=== PATIENT | female | born 1990 | race Hispanic/Latino ===

== ENCOUNTER 2017-02-24 02:23 | Emergency (ER) | payer MEDICAID ==
[2017-02-24 10:21] VITALS: BMI 25.8
== END 2017-02-24 02:38 | disposition left against medical advice (07) ==
LOC: ED 02:23
DX: Z02.89 Encounter for other administrative examinations (principal); O26.899 Other specified pregnancy related conditions, unspecified trimester

== ENCOUNTER 2017-02-24 10:09 | Inpatient (IN) | payer MEDICAID, BC ==
[2017-02-24 10:21] VITALS: BMI 25.8
--- NOTE | 2017-02-24 10:38 | ED PDOC ---
Arrival/HPI - General Chief Complaint: Psychiatric Evaluation Time Seen by Provider: 02/24/17 10:30 Historian: Patient - History of Present Illness Narrative History of Present Illness (Text): 02/24/17 10:35 26 y/o female, no significant pmh, psychiatric history including schizophrenia? , nkda, biba and police for agitation and suicidal ideation x 1 day. Pt. stated that she feels fine except feeling little suicidal ideation and wants to choke her self. As per police, patient was found agitated and running through the [employer] crowd which appear concerning. Pt. is in the ER department, pleasant and smiling, stated that she has no medical complaints. Pt. has no homicidal or suicidal ideation, no auditory or visual hallucination, no palpitation, no rash, no other medical or psychological complaints. 02/24/17 11:09 Past Medical History - Provider Review Nursing Documentation Reviewed: Yes - Infectious Disease Hx of Infectious Diseases: None - Psychiatric Hx Schizophrenia: Yes Hx Substance Use: No Family/Social History - Physician Review Nursing Documentation Reviewed: Yes Family/Social History: Unknown Family HX Smoking Status: Never Smoked Hx Alcohol Use: No Hx Substance Use: No Allergies/Home Meds Allergies/Adverse Reactions: Allergies No Known Allergies Allergy (Verified 02/24/17 10:21) Home Medications: Home Meds Medication Instructions Recorded Confirmed Paliperidone [Paliperidone ER] 9 mg pe PO DAILY 02/24/17 02/24/17 Review of Systems - Review of Systems Constitutional: absent: Fatigue, Fevers Eyes: absent: Vision Changes ENT: absent: Hearing Changes Respiratory: absent: SOB, Cough Cardiovascular: absent: Chest Pain Gastrointestinal: absent: Abdominal Pain, Nausea, Vomiting Skin: absent: Rash, Pruritis Neurological: absent: Headache, Dizziness, Focal Weakness Psychiatric: Suicidal Ideation. absent: Anxiety, Depression Physical Exam Vital Signs Reviewed: Yes Vital Signs Temp Pulse Resp BP Pulse Ox 02/24/17 15:46 102 H 18 126/56 L 100 02/24/17 10:19 98.7 F 116 H 20 132/71 99 Temperature: Afebrile Blood Pressure: Normal Pulse: Tachycardic Respiratory Rate: Normal Appearance: Positive for: Well-Appearing, Non-Toxic, Comfortable Pain Distress: None Mental Status: Positive for: Alert and Oriented X 3 - Systems Exam Head: Present: Atraumatic, Normocephalic Pupils: Present: PERRL Extroacular Muscles: Present: EOMI Conjunctiva: Present: Normal Ears: Present: NORMAL TM, Normal Canal. No: Erythema Mouth: Present: Moist Mucous Membranes Neck: Present: Normal Range of Motion, Trachea Midline. No: MIDLINE TENDERNESS , Paraspinal Tenderness, Lymphadenopathy Respiratory/Chest: Present: Clear to Auscultation, Good Air Exchange. No: Respiratory Distress, Accessory Muscle Use Cardiovascular: Present: Regular Rate and Rhythm, Normal S1, S2. No: Murmurs Abdomen: Present: Normal Bowel Sounds. No: Tenderness, Distention, Peritoneal Signs, Rebound, Guarding Back: Present: Normal Inspection. No: CVA Tenderness, Midline Tenderness Upper Extremity: Present: Normal Inspection. No: Cyanosis, Edema Lower Extremity: Present: Normal Inspection. No: Edema Neurological: Present: GCS=15, Speech Normal, Motor Func Grossly Intact, Gait Normal, Memory Normal Skin: Present: Warm, Dry, Normal Color. No: Rashes Psychiatric: Present: Alert, Oriented x 3, Normal Insight, Normal Concentration Medical Decision Making ED Course and Treatment: 02/24/17 10:39 -labs/ua/uds -ekg -chest xray -PES notify -Observe and reassess 02/24/17 11:12 -EKG: Sinus Tachycardia @ 104 BPM, no ST elevation or depression, no T wave inversion. -I spoke to Dr. Garcia which he called me from [phone], stated that this patient has chronic schizophrenia with chronic psychotic features, agreed that this behavior today is unusual plus will need psychiatric evaluation after the medical evaluation. 02/24/17 11:30 -I was call to the bedside as the patient agitated, suicidal expression, fight verbally and physically with the one to one staff Pedro, causing danger to the others and self, wants to leave the ER, very uncooperative, 4 restraints applied with security on the side. I was put on the phone with the father which stated that please don't give any medication to her daughter and try to remove the restraints on her. I explained to the father the entire situation and the suddenly explosive episode of behavior change and agitated to leave the hospital with suicidal comment. I asked him to come to the ER but he say he can not come in. I consulted with Dr. Garcia that either medication or physical restraints need to be applied. I have asked the CHARGE AUTHORIZER Evelyn Anne to removed some restraints and see if there is any improvement on the behavior. If the patient is still agitated, then the restraint will be kept on until psychiatric evaluation since the dad and the patient refused medication. 02/24/17 12:33 -Patient suddenly became agitated after 2 pts. soft restraint removed from the leg as the parent and family request it all removed. Pt. pushing the one to one Pedro and trying to run out of the ER, stopped by pedro and the patient fall on the top of the patient. I escorted the patient back into the room, 4 pts. soft restraint placed. I re-examined the patient and there is no signs of trauma or skin discoloration, no tenderness or swelling. Pt. stated that she has no pain either. -Family (aunt and cousin who happened to be an RN too) visualized the entire scene and I tell them that I have to restraint the patient as the father is absolutely doesn't want her daughter to be receiving any medications especially ativan. 02/24/17 12:44 -MANNIE Sharma is here, discussed about the case and incidents with the dad/ psychiatrist Dr. Garcia, she will speak to the family and the patient. 02/24/17 14:21 -Father is here at the bed side, spoke to on the phone, Dr. Anderson will come to the ER, consult placed in. -Labs are non-significant -Chest xray show no acute findings. -EKG show no acute findings -Pt. is medically clear and stable for psychiatric evaluation. 02/24/17 15:13 -The father and the patient agreed to signed in, they will follow up on the UA and drug screen. -Dr. Garcia will put in the admission order. 02/24/17 15:42 -UA show no UTI 02/24/17 16:24 -UDS show no acute findings. -Pt. will be medicated by psychiatrist prior to going up stair, restraints will be removed since she will be medicated. - Lab Interpretations Lab Results: 02/24/17 10:33 02/24/17 10:33 Lab Results 02/24/17 10:33: Beta HCG, Quant < 2.39 02/24/17 10:33: WBC 8.6, RBC 4.28, Hgb 12.5, Hct 36.6, MCV 85.5, MCH 29.2, MCHC 34.2, RDW 12.6, Plt Count 230, MPV 11.2 H, Gran % 70.3 H, Lymph % (Auto) 22.1, [place] % (Auto) 7.1 H, Eos % (Auto) 0.2 L, Baso % (Auto) 0.3, Gran # 6.04, Lymph # 1.9, [place] # 0.6, Eos # 0.0, Baso # 0.03 02/24/17 10:33: Alcohol, Quantitative < 10 02/24/17 10:33: Salicylates < 1 L, Acetaminophen < 10.0 L 02/24/17 10:33: Sodium 139, Potassium 3.7, Chloride 105, Carbon Dioxide 23, Anion Gap 15, BUN 6 L, Creatinine 0.7, Est GFR ( Amer) > 60, Est GFR (Non -Af Amer) > 60, Random Glucose 134 H, Calcium 9.8, Total Bilirubin 0.4, AST 24, ALT 35, Alkaline Phosphatase 55, Total Protein 7.2, Albumin 4.2, Globulin 2.9, Albumin/Globulin Ratio 1.4 I have reviewed the lab results: Yes Interpretation: No clinic. lab abnormalty - RAD Interpretation Radiology Orders: 02/24/17 10:34 CHEST PORTABLE [RAD] Stat - EKG Interpretation EKG Interpretation (Text): 02/24/17 10:46 -EKG: Sinus Tachycardia @ 104 BPM, no ST elevation or depression, no T wave inversion. Interpreted by ED Physician: Yes Type: 12 lead EKG - Medication Orders Current Medication Orders: Discontinued Medications Perphenazine (Perphenazine) 4 mg PO STAT STA Stop: 02/24/17 16:16 - PA / TOLL COLLECTOR SUPERVISOR / Resident Statement MD/DO has reviewed & agrees with the documentation as recorded. Disposition/Present on Arrival - Present on Arrival Any Indicators Present on Arrival: No History of DVT/PE: No History of Uncontrolled Diabetes: No Urinary Catheter: No History of Decub. Ulcer: No History Surgical Site Infection Following: None - Disposition Have Diagnosis and Disposition been Completed?: Yes Diagnosis: Schizophrenia, Suicidal ideation Disposition: HOSPITALIZED Disposition Time: 15:15 Patient Plan: Admission Patient Problems: Current Active Problems Problem Status Onset Schizophrenia Acute Suicidal ideation Acute Condition: GUARDED
[2017-02-24 11:31] LABS: BASO # 0.03 K/mm3 (0.0-2.0); BASO % 0.3 % (0.0-3.0); EOS % 0.2 % (1.5-5.0); GRAN # 6.04 (1.4-6.5); GRAN % 70.3 % (50.0-68.0); HEMATOCRIT 36.6 % (36.0-48.0); LYMPH # 1.9 (1.2-3.4); LYMPH % 22.1 % (22.0-35.0); MEAN CELL VOLUME 85.5 fl (80.0-105.0); MEAN CORPUSCULAR HEMOGLOBIN 29.2 pg (25.0-35.0); MEAN CORPUSCULAR HGB CONC 34.2 g/dl (31.0-37.0); MEAN PLATELET VOLUME 11.2 fl (7.0-11.0); MONO # 0.6 (0.1-0.6); MONO % 7.1 % (1.0-6.0); RED CELL DISTRIBUTION WIDTH 12.6 % (11.5-14.5); WHITE BLOOD COUNT 8.6 10^3/ul (4.5-11.0)
[2017-02-24 11:39] LABS: ALB/GLOB RATIO 1.4 (1.1-1.8); ALKALINE PHOSPHATASE 55 U/L (38-126); ALT/SGPT 35 U/L (7-56); AST/SGOT 24 U/L (14-36); BILIRUBIN,TOTAL 0.4 mg/dL (0.2-1.3); BLOOD UREA NITROGEN 6 mg/dL (7-21); CALCIUM 9.8 mg/dL (8.4-10.5); CARBON DIOXIDE 23 mmol/L (21-33); CHLORIDE 105 mmol/L (98-107); GFR AFRICAN-AMERICAN > 60; GLUCOSE,RANDOM 134 mg/dL (70-110); TOTAL PROTEIN 7.2 g/dL (5.8-8.3)
[2017-02-24 11:51] LABS: POTASSIUM 3.7 mmol/L (3.6-5.0); SODIUM 139 mmol/L (132-148)
--- NOTE | 2017-02-24 14:43 | RAD ---
HISTORY: medical clearance COMPARISON: No prior. FINDINGS: LUNGS: No active pulmonary disease. PLEURA: No significant pleural effusion identified, no pneumothorax apparent. CARDIOVASCULAR: Normal. OSSEOUS STRUCTURES: No significant abnormalities. VISUALIZED UPPER ABDOMEN: Normal. OTHER FINDINGS: None. IMPRESSION: No active disease.
[2017-02-24 15:34] LABS: PH,URINE 5.5 (4.7-8.0); URINE BILIRUBIN NEGATIVE (NEGATIVE); URINE BLOOD NEGATIVE (NEGATIVE); URINE GLUCOSE (UA) NEGATIVE (NEGATIVE); URINE KETONE NEGATIVE (NEGATIVE); URINE LEUKOCYTE ESTERASE NEGATIVE Leu/uL (NEGATIVE); URINE PROTEIN NEGATIVE mg/dL (<30 mg/dL); URINE UROBILINOGEN 0.2 E.U./dL (<1 E.U./dL)
[2017-02-24 15:35] LABS: URINE APPEARANCE CLEAR (CLEAR); URINE COLOR YELLOW (YELLOW)
--- NOTE | 2017-02-24 18:11 | PCM.BM ---
<NunubrooklynPedro - Last Filed: 02/24/17 18:08> Treatment Plan Problems - Problems identified on initial assessmt agitated behavior Date Initiated: 02/24/17 Time Initiated: 18:08 Assessment reference: HP, NA Status: Active alteration in emotional status Date Initiated: 02/24/17 Time Initiated: 18:09 Assessment reference: HP, NA Status: Active delusions Date Initiated: 02/24/17 Time Initiated: 18:10 Assessment reference: HP, NA Status: Active thought process alteration Date Initiated: 02/24/17 Time Initiated: 18:10 Assessment reference: HP, NA Treatment assets and liabiliti Patient Assests: educated, self-reliant, ADL independent, physically healthy, strong mini Patient Liabilities: dietary restrictions - Milieu Protocol Maintain good personal hygiene: daily Encourage regular showers, daily Remind patient to perform daily oral care, daily Assist patient to perform ADL's Maintain personal safety: daily Educate patient to report safety concerns to staff, daily Monitor environment for contraband/sharps Medication safety: Monitor for expected outcome, potential side effects: daily, Assess barriers to learning: daily, Assess readiness for medication education: daily Discharge/Continuing Care - Education Needs Education Needs: Patient Medication, Patient Diagnosis/Disease Process, Patient Coping Skills, Patient Anger Management skills, Patient Community resources, Patient Activities of Daily Living, Patient Personal Hygiene/Grooming - Discharge Discharge Criteria: Tolerates medication w/o severe side effects, Free of Suicidal thoughts, Free of paranoid thoughts, Free of agitation, Normal sleep pattern, Ability to care for self Discharge to:: Home <Mary Frederick - Last Filed: 03/01/17 08:28> Family Contact Family involvement: Family/SO is involved Family contact: Patient agrees to contact Family contact name: Ana M Allen(mother) Lamont Allen(father) Family contacted how many times per week?: 2 <Ramona Mckay - Last Filed: 03/06/17 14:56>
--- NOTE | 2017-02-24 23:06 | CARD ---
APPROVED REPORT EKG Measurement Heart [id number] <Conclusion> Sinus tachycardia Nonspecific T wave abnormality Abnormal ECG
--- NOTE | 2017-02-25 01:21 | CON ---
DATE: HISTORY OF PRESENT ILLNESS: The patient is a 26-year-old female with history of schizophrenia, was brought by police for agitation and suicidal ideation. Psych consult was called because the patient was agitated, wanted to harm herself and wanted to choke herself. As per police report, the patient was found agitated and running through the crowd, which appeared to be concerning. In the Emergency Room, the patient was agitated, needed to be in 4 point restraints. The patient was seen and examined. The patient has developmental disability, neurocognitive disorder, and the patient's father who claimed to be POA and the patient confirmed that was next to the patient. The patient needed to be interviewed on one to one because father was constantly interfering with the patient during the interview. Based on the patient's presentation, the patient presented to be a paranoid suspicious. The patient said that she lives with her uncle and her grandmother and her uncle treats her poorly. As per collaterals said this is not correct information. The patient is paranoid. The patient also feels that her uncle is abusing her and when the patient was asked if she has any thoughts to harm her uncle, the patient said a little bit. The patient also said that she wants to harm herself, "a little bit". The patient said that she wants to choke herself and 2 days ago, she tried to cut herself with the knife. The patient said that she is not feeling safe going back home because of the uncle. The patient has Psychiatrist in the community Dr. Roa in [place], phone number is [phone]. The patient reported to be compliant with the medication. The patient was on Invega 15 mg. The patient also was doing well on perphenazine which was discontinued about 9 months ago of this year. As per collateral, the patient was compliant with the medications. The patient's father was feeling resistant to sign consent for treatment because as per father, admission will worsen the situation and the patient's father requested this science writer to speak to the primary psychiatrist who was called. As per Dr. Roa, the patient needed to stay in the hospital because the patient seems to be decompensating. The patient's primary care psychiatrist was in agreement with the plan and the patient's psychiatrist called to the family and family were reluctantly signed consent for treatment. Dr. Roa confirmed the medication Invega 15 mg daily as well as history of being on perphenazine. Most recent hospitalization was in 03/2015. PHYSICAL EXAMINATION VITAL SIGNS: This science writer reviewed vital signs. Vital signs seems to be stable, temperature 98.7, pulse is 116, blood pressure 132/71, respirations 20, oxygenation saturation 99. MEDICATIONS: Reviewed, none. LABORATORY DATA: Reviewed. Hematology is reviewed, granulocytes 6.04. Chemistries reviewed. Toxicology reviewed. MENTAL STATUS EXAMINATION: The patient appears to be paranoid. Poor personal hygiene, has long dirty toenails. The patient obviously has some developmental disability, and learning disability as well as neurocognitive deficits, but was able to provide history. Intense eye contact. Speech was overproductive. Mood described as "I want to kill myself, I want to choke myself." Affect was flat. Thought process, disorganized, circumstantial and tangential. Thought content, the patient reported to have thoughts of harming herself. The patient obviously paranoid. Feel that her uncle is threatening her. Appears to be internally preoccupied. Insight and judgment are lacking. Impulses are unpredictable. IMPRESSION: As per history, the patient has schizophrenia, multiple admission in the past. Acute exacerbation. PLAN: After talking to primary psychiatrist, father agreed to sign consent for treatment. The patient was willing to get treat that. Invega is nonformulary in the hospital regimen. This science writer called [facility] that they will get back to me. The patient was on 15 mg of Invega. Family will be advised to bring Invega from home if it is nonformulary in the hospital and if [facility] cannot delivered that medication today. The patient will be on one-to-one because of unpredicted and aggressive behavior. Perphenazine 4 mg 3 times a day will be resumed. Thorazine will be as needed. No Ativan because of this inhibition, Benadryl 50 mg at the night time as needed for insomnia. Management of this case took more than 1 hour. This science writer was involved in high level of care of this patient. Should you have any questions give me a call back. Thank you very much for letting me participate in care of your patient. The patient will go upstairs to the psychiatric inpatient unit. Monica Ahn MD
[2017-02-25 06:42] LABS: CHOLESTEROL 171 mg/dL (130-200); GLUCOSE,FASTING 92 mg/dL (65-110)
[2017-02-25 07:18] LABS: FREE T4 1.34 ng/dL (0.78-2.19)
[2017-02-25 07:32] LABS: THYROID STIMULATING HORMONE 2.25 mIU/mL (0.46-4.68)
--- NOTE | 2017-02-25 09:12 | PCM.PSYCH ---
Initial Psychiatric Evaluation - Initial Psychiatric Evaluation Type of Admission: Voluntary Legal Status: Capacity History of Present Illness and Precipitating Events: Patient is a single 26 yo white female with psychiatric history of schizophrenia , prior psychiatric admissions-most recently 03/2015, in outpatient treatment with Dr. Roa, reportedly adherent with Invega 15 mg HS who was BIB police because she was found agitated and disorganized in the community. Patient also verbalized that she was suicidal and had thoughts of choking herself. Patient's presentation was complicated by the involvement of her father and patient's escalating agitation in the ER. ER notes and Dr. Ahn's consultation indicated that patient was initially pleasant, smiling and cooperative in the ER. However within an hour patient became agitated and started verbally and physically arguing with her 1:1. Patient demanded to leave the ER and required 4 point restraints for the safety of herself and other patients. Father was contacted by phone and he was adamant that patient doesn't receive restraints or medication especially Ativan. Staff accommodated father' s request and removed leg restraints.Subsequently patient ran and tried to elope from the ER and fell. Collateral was obtained from patient's psychiatrist, Dr. Roa. He confirmed that patient's behavior was not typical for her and recommended admission for stabilization.Dr. Ahn was also consulted and spoke with patient and family. Both father and patient eventually agreed to sign in voluntarily for psychiatric stabilization. Of note: Patient received prolixin 4 mg x1 prior to her arrival on the unit. Thus far patient has been in good control on the unit. I met with patient at bedside and she appears fairly groomed, oriented to month, year, location and circumstances. She has a childlike quality about her however she denies any diagnosis of mental retardation. She indicated that she attended regular classes throughout high school and college and that her grades were very good. Patient has been in treatment with her psychiatrist, Dr. Roa for last eight years. Patient is forthcoming about her bizarre and aggressive behavior yesterday. She reports that she has been taking invega as prescribed but "messed up somehow". She has noticed a gradual increase in paranoia and "disorientation" over time even with medication compliance. Specifically patient reports paranoid thoughts about her uncle harassing and stalking her with plan to rape her. Patient suddenly ran into a random preschool yesterday with the intent of saving the children from this uncle. Patient acknowledges that her uncle has no connection to the school whatsoever. Patient admits that she had suicidal thoughts to choke herself. She denies having any hallucinations during the course of events yesterday. Presently patient feels "much much better".. She denies having any thoughts of harming herself and becomes emotional when discussing having these thoughts yesterday. I ask her about depression and she responds "I don't know". She denies having any thoughts to harm her uncle at this time though she still has some suspicions about him. Patient is calm and cooperative. Her responses are coherent and consistent throughout the course of our interview. Her focus is good. Patient denies hallucinations and does not appear to be responding to internal stimuli. She is tolerating her medications and presently agrees with current treatment plan when reviewed with her at bedside this morning. PSYCHIATRIC HISTORY Patient reports at least 2 prior admissions. Most recently 03/2015 and also in her last year of high school. She has been in outpatient treatment with Dr. Roa for 8 years. She is prescribed Invega 15 mg HS. Prolixin has also been beneficial for her in the past. Patient denies any history of SA but reports suicidal ideations. Dr. Ahn 's ER consultation indicates that patient reported trying to cut herself with a knife 2 days prior to her ER presentation SOCIAL HISTORY Patient was born and raised in [place]. She is single. She has a boyfriend named Henry for 5 years. She has no children. She reside with her uncle and grandmother. Patient graduated from high school but completed her final year with home schooling due to decompensation. She denies any history of special education classes. Patient graduated [employer] with a major in psychology & human services. She denies any drug or alcohol or tobacco use. Current Medications: Active Medications Generic Name Dose Route Start Last Admin Trade Name Freq PRN Reason Stop Dose Admin Chlorpromazine 50 mg 02/24/17 17:50 02/25/17 00:10 Thorazine PO 50 mg TID PRN Administration Agitation Protocol Chlorpromazine 50 mg 02/24/17 17:52 Thorazine IM TID PRN Agitation Protocol Diphenhydramine HCl 50 mg 02/24/17 17:50 02/25/17 00:11 Benadryl PO 50 mg HS PRN Administration Insomnia Perphenazine 2 mg 02/25/17 08:00 Perphenazine PO TID CM Risperidone 2 mg 02/24/17 18:00 Risperdal Tab PO TID CM Protocol Past Psychiatric History - Past Psychiatric History Pertinent Medical Hx (Current Medical&Sleep Prob, Allergies): Allergies Allergy/AdvReac Type Severity Reaction Status Date / Time No Known Allergies Allergy Verified 02/24/17 18:49 Paliperidone [Paliperidone ER] 9 mg pe PO DAILY 02/24/17 Mental Status Examination - Personal Presentation Personal Presentation: Looks stated age - Affect Affect: Constricted - Motor Activity Motor Activity: Calm - Reliability in Providing Information Reliability in Providing Information: Fair - Speech Speech: Organized - Mood Mood: Anxious - Formal Thought Process Formal Thought Process: Paranoia, Loosening of associations - Obsessions/Compulsions Obsessions: No Compulsions: No - Cognitive Functions Orientation: Person, Place, Situation Sensorium: Alert Attention/Concentration: Attentive Estimate of Intelligence: Average Judgement: Imparied, as evidence by: Poor judgement - Risk Risk: Suicidal, Homicidal, Diminished functioning DSM 5 DX - DSM 5 DSM 5 Diagnosis: Paranoid Schizophrenia R/O Schizoaffective Disorder Developmental Disorder NOS/Neurocognitive Disorder NOS - Recommended/Plan of Treatment Treatment Recommendations and Plan of Treatment: * group, milieu and supportive tx * Risperdal 2 mg po TID until home medication Invega 15 mg HS is provided by family * Cogentin 0.5 mg po BID for EPS prophylaxis * Prolixin 2 mg po TID for hallucinations and disorganizations * Thorazine 50 mg po/IM TID prn: agitation * Benadryl 50 mg HS prn * Awaiting medical consultation * Vitals reviewed and noted below: Selected Entries 02/24/17 02/24/17 02/24/17 10:19 15:46 16:55 Temperature 98.7 F Pulse Rate 116 H 102 H 100 H Respiratory 20 18 18 Rate Blood Pressure 132/71 126/56 L 124/79 O2 Sat by Pulse 99 100 100 Oximetry 02/24/17 02/25/17 18:01 06:33 Temperature 98 F Pulse Rate 79 Respiratory 20 19 Rate Blood Pressure 114/70 O2 Sat by Pulse Oximetry ER LABS AND STUDIES 02/24/17 10:33: Beta HCG, Quant < 2.39 02/24/17 10:33: WBC 8.6, RBC 4.28, Hgb 12.5, Hct 36.6, MCV 85.5, MCH 29.2, MCHC 34.2, RDW 12.6, Plt Count 230, MPV 11.2 H, Gran % 70.3 H, Lymph % (Auto) 22.1, [place] % (Auto) 7.1 H, Eos % (Auto) 0.2 L, Baso % (Auto) 0.3, Gran # 6.04, Lymph # 1.9, [place] # 0.6, Eos # 0.0, Baso # 0.03 02/24/17 10:33: Alcohol, Quantitative < 10 02/24/17 10:33: Salicylates < 1 L, Acetaminophen < 10.0 L 02/24/17 10:33: Sodium 139, Potassium 3.7, Chloride 105, Carbon Dioxide 23, Anion Gap 15, BUN 6 L, Creatinine 0.7, Est GFR ( Amer) > 60, Est GFR (Non -Af Amer) > 60, Random Glucose 134 H, Calcium 9.8, Total Bilirubin 0.4, AST 24, ALT 35, Alkaline Phosphatase 55, Total Protein 7.2, Albumin 4.2, Globulin 2.9, Albumin/Globulin Ratio 1.4 02/24/17 10:46 -EKG: Sinus Tachycardia @ 104 BPM, no ST elevation or depression, no T wave inversion. FLOOR LABS 02/25/17 02/25/17 06:00 06:00 Fasting Glucose 92 Triglycerides 45 Cholesterol 171 LDL Cholesterol Direct 65 HDL Cholesterol 79 H Free T4 1.34 TSH 3rd Generation 2.25
--- NOTE | 2017-02-25 12:54 | CP.PCM.PN ---
Subjective - Date & Time of Evaluation Date of Evaluation: 02/25/17 Time of Evaluation: 09:00 - Subjective Subjective: Patient was seen and examined in psychiatric unit today. Patient states she had no complaints. Objective - Vital Signs/Intake and Output Vital Signs (last 24 hours): Temp Pulse Resp BP Pulse Ox 98 F 79 19 114/70 100 02/25/17 06:33 02/25/17 06:33 02/25/17 06:33 02/25/17 06:33 02/24/17 16:55 - Medications Medications: Current Medications Benztropine Mesylate (Cogentin) 0.5 mg PO BID [facility] Last Admin: 02/25/17 08:54 Dose: 0.5 mg Chlorpromazine (Thorazine) 50 mg PO TID PRN; Protocol PRN Reason: Agitation Last Admin: 02/25/17 12:37 Dose: 50 mg Chlorpromazine (Thorazine) 50 mg IM TID PRN; Protocol PRN Reason: Agitation Diphenhydramine HCl (Benadryl) 50 mg PO HS PRN PRN Reason: Insomnia Last Admin: 02/25/17 00:11 Dose: 50 mg Perphenazine (Perphenazine) 2 mg PO TID CM Last Admin: 02/25/17 08:54 Dose: 2 mg Risperidone (Risperdal Tab) 2 mg PO TID CM PRN Reason: Protocol Last Admin: 02/25/17 12:37 Dose: 2 mg
--- NOTE | 2017-02-25 13:46 | CP.PCM.CON ---
<Mayank Burger - Last Filed: 02/25/17 16:35> History of Present Illness - History of Present Illness History of Present Illness: Patient is a 26 year old female with a past medical history of schizophrenia, neurocognitive disorder, and developmental disability who presented to [facility] on 02/24/17 by police due to suicidal ideation and agitation while in the community. Due to patient's current status, one on one was placed. With time patient became agitated and began physically and verbally abusing her one to one. Due to escalation of situation, 4 restraints were placed on patient. Patient's father, the JOSÉ MIGUEL was contacted in regards to this situation. He requested that restraints nor ativan be administered to her daughter. Once restraints were removed patient ran for the exit. Patient's psychiatrist Dr. Roa was then call for further input. Dr. Roa agreed with plan to admit patient to the psyhciatric unit as the patient was at the time in a state of decompensation. Patient was seen and examined at bedside today with no acute complaints. Patient states that she is originally from [place] and currently is residing in [place] with her uncle and aunt. Patient states that she is currently trying to save up money so she can move out and live on her own. 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 PMD: Dr. Gomez Psychiatrist: Dr. Roa Allergies: NKDA Medications: Invega 15 mgq D Social history; unemployed currently, degree in psychology, denies drinking, denies smoking, denies ellicit drug use. Family history: Uncle with similar condition as patient Surgical history: denies Review of Systems - Constitutional Constitutional: absent: Chills, Fever, Headache - EENT Eyes: absent: Blurred Vision, Change in Vision, Diplopia, Itchy Eyes, Loss of Vision Ears: absent: Decreased Hearing, Ear Discharge, Dizziness Nose/Mouth/Throat: absent: Nasal Congestion, Nasal Discharge, Post Nasal Drip, Facial Pain, Neck Pain - Breasts Breasts: absent: Mass, Skin Changes, Swelling - Cardiovascular Cardiovascular: absent: Chest Pain, Chest Pain at Rest, Claudication - Respiratory Respiratory: absent: Cough, Dyspnea, Snoring - Gastrointestinal Gastrointestinal: absent: Abdominal Pain, Belching, Bloating, Diarrhea, Dyspepsia, Nausea, Vomiting - Genitourinary Genitourinary: absent: Dysuria, Hematuria, Pyuria - Musculoskeletal Musculoskeletal: absent: Arthralgias, Atrophy - Integumentary Integumentary: absent: Bleeding Lesions - Neurological Neurological: absent: Abnormal Gait, Abnormal Hearing, Dizziness - Psychiatric Psychiatric: Paranoia, Suicidal Ideation - Hematologic/Lymphatic Hematologic: absent: Easy Bleeding, Easy Bruising, Lymphadenopathy Past Patient History - Infectious Disease Hx of Infectious Diseases: None - Past Social History Smoking Status: Never Smoked - CARDIAC Hx Cardiac Disorders: No Hx Hypertension: No - PULMONARY Hx Respiratory Disorders: No Hx Tuberculosis: No - NEUROLOGICAL HX Cerebrovascular Accident: No Hx Seizures: No - HEENT Hx HEENT Problems: No - RENAL Hx Chronic Kidney Disease: No - ENDOCRINE/METABOLIC Hx Endocrine Disorders: No - HEMATOLOGICAL/ONCOLOGICAL Hx Cancer: No Hx Human Immunodeficiency Virus (HIV): No - INTEGUMENTARY Hx Dermatological Problems: No - MUSCULOSKELETAL/RHEUMATOLOGICAL Hx Musculoskeletal Disorders: No - GASTROINTESTINAL Hx Gastrointestinal Disorders: No - GENITOURINARY/GYNECOLOGICAL Hx Sexually Transmitted Disorders: No - PSYCHIATRIC Hx Schizophrenia: Yes Hx Substance Use: No - SURGICAL HISTORY Hx Surgeries: No - ANESTHESIA Hx Anesthesia: No Meds Allergies/Adverse Reactions: Allergies Allergy/AdvReac Type Severity Reaction Status Date / Time No Known Allergies Allergy Verified 02/24/17 18:49 - Medications Medications: Current Medications Benztropine Mesylate (Cogentin) 0.5 mg PO BID [facility] Last Admin: 02/25/17 08:54 Dose: 0.5 mg Chlorpromazine (Thorazine) 50 mg PO TID PRN; Protocol PRN Reason: Agitation Last Admin: 02/25/17 12:37 Dose: 50 mg Chlorpromazine (Thorazine) 50 mg IM TID PRN; Protocol PRN Reason: Agitation Diphenhydramine HCl (Benadryl) 50 mg PO HS PRN PRN Reason: Insomnia Last Admin: 02/25/17 00:11 Dose: 50 mg Perphenazine (Perphenazine) 2 mg PO TID [facility] Last Admin: 02/25/17 08:54 Dose: 2 mg Risperidone (Risperdal Tab) 2 mg PO TID CM PRN Reason: Protocol Last Admin: 02/25/17 12:37 Dose: 2 mg Physical Exam - Constitutional Appears: Non-toxic, No Acute Distress - Head Exam Head Exam: ATRAUMATIC, NORMAL INSPECTION, NORMOCEPHALIC - Eye Exam Eye Exam: EOMI, Normal appearance - ENT Exam ENT Exam: Mucous Membranes Moist, Normal Exam - Neck Exam Neck exam: Positive for: Normal Inspection. Negative for: Tenderness, Thyromegaly - Respiratory Exam Respiratory Exam: Clear to Auscultation Bilateral, NORMAL BREATHING PATTERN. absent: Rhonchi, Wheezes - Cardiovascular Exam Cardiovascular Exam: REGULAR RHYTHM, +S1, +S2. absent: Diastolic murmur, Systolic Murmur - GI/Abdominal Exam GI & Abdominal Exam: Normal Bowel Sounds, Soft. absent: Guarding, Hernia, Rigid - Back Exam Back exam: NORMAL INSPECTION - Neurological Exam Neurological exam: Alert, CN II-XII Intact, Oriented x3 - Psychiatric Exam Psychiatric exam: Normal Affect, Normal Mood - Skin Skin Exam: Normal Color, Warm Results - Vital Signs Recent Vital Signs: Last Vital Signs Temp 98 F 02/25/17 06:33 Pulse 79 02/25/17 06:33 Resp 19 02/25/17 06:33 BP 114/70 02/25/17 06:33 Pulse Ox 100 02/24/17 16:55 - Labs Result Diagrams: 02/24/17 10:33 02/24/17 10:33 Labs: Laboratory Results - last 24 hr 02/24/17 02/24/17 02/25/17 15:30 15:30 06:00 Fasting Glucose 92 Triglycerides 45 Cholesterol 171 LDL Cholesterol Direct 65 HDL Cholesterol 79 H Free T4 TSH 3rd Generation Urine Color Yellow Urine Appearance Clear Urine pH 5.5 Ur Specific [place] <= 1.005 Urine Protein Negative Urine Glucose (UA) Negative Urine Ketones Negative Urine Blood Negative Urine Nitrate Negative Urine Bilirubin Negative Urine Urobilinogen 0.2 Ur Leukocyte Esterase Negative Urine Opiates Screen Negative Urine Methadone Screen Negative Ur Barbiturates Screen Negative Ur Phencyclidine Scrn Negative Ur Amphetamines Screen Negative U Benzodiazepines Scrn Negative U Oth Cocaine Metabols Negative U Cannabinoids Screen Negative 02/25/17 06:00 Fasting Glucose Triglycerides Cholesterol LDL Cholesterol Direct HDL Cholesterol Free T4 1.34 TSH 3rd Generation 2.25 Urine Color Urine Appearance Urine pH Ur Specific [place] Urine Protein Urine Glucose (UA) Urine Ketones Urine Blood Urine Nitrate Urine Bilirubin Urine Urobilinogen Ur Leukocyte Esterase Urine Opiates Screen Urine Methadone Screen Ur Barbiturates Screen Ur Phencyclidine Scrn Ur Amphetamines Screen U Benzodiazepines Scrn U Oth Cocaine Metabols U Cannabinoids Screen Assessment & Plan - Assessment and Plan (Free Text) Assessment: 26 year old female with past medical history of schizophrenia and neurocognitive disorder admitted due to episode of paranoia induced psychosis. Plan: 1) Medical evaluation - From a medical standpoint, as far as physical exam and lab findings, patient is medically cleared. No further intervention needed at this time. <Kavitha uMnguia - Last Filed: 02/25/17 17:12> Meds - Medications Medications: Current Medications Benztropine Mesylate (Cogentin) 0.5 mg PO BID CM Last Admin: 02/25/17 08:54 Dose: 0.5 mg Chlorpromazine (Thorazine) 50 mg PO TID PRN; Protocol PRN Reason: Agitation Last Admin: 02/25/17 12:37 Dose: 50 mg Chlorpromazine (Thorazine) 50 mg IM TID PRN; Protocol PRN Reason: Agitation Diphenhydramine HCl (Benadryl) 50 mg PO HS PRN PRN Reason: Insomnia Last Admin: 02/25/17 00:11 Dose: 50 mg Perphenazine (Perphenazine) 2 mg PO TID CM Last Admin: 02/25/17 14:30 Dose: Not Given Risperidone (Risperdal Tab) 2 mg PO TID CM PRN Reason: Protocol Last Admin: 02/25/17 12:37 Dose: 2 mg Results - Vital Signs Recent Vital Signs: Last Vital Signs Temp 98 F 02/25/17 06:33 Pulse 79 02/25/17 06:33 Resp 19 02/25/17 06:33 BP 114/70 02/25/17 06:33 Pulse Ox 100 02/24/17 16:55 - Labs Result Diagrams: 02/24/17 10:33 02/24/17 10:33 Labs: Laboratory Results - last 24 hr 02/25/17 02/25/17 06:00 06:00 Fasting Glucose 92 Triglycerides 45 Cholesterol 171 LDL Cholesterol Direct 65 HDL Cholesterol 79 H Free T4 1.34 TSH 3rd Generation 2.25 Attending/Attestation - Attestation I have personally seen and examined this patient.: Yes I have fully participated in the care of the patient.: Yes I have reviewed all pertinent clinical information: Yes Notes (Text): 02/25/17 17:10 Attending note; Patient seen and examined with resident in psychiatric floor. Patient is alert, awake and oriented. Denies any complaints. Not in any acute distress. Tolerating diet well. Ambulating fine. Patient is a 26 year old female with a past medical history of schizophrenia, neurocognitive disorder, and developmental disability who presented to [facility] on 02/24/17 by police due to suicidal ideation and agitation. Labs reviewed. Patient is requesting flu vaccine. Okay to give flu vaccine now or upon discharge. No acute medical issues. Please reconsult as needed. Thank you for the courtesy of this consultation.
--- NOTE | 2017-02-26 01:07 | CP.PCM.PN ---
Subjective - Date & Time of Evaluation Date of Evaluation: 02/26/17 Time of Evaluation: 01:04 - Subjective Subjective: Responded to [facility] announcement. Patient was agitated. Few staff members were holding her in the bed . This 26 year old woman was admitted with suicidal ideation. Has history of schizophrenia, developmental disability. Objective - Vital Signs/Intake and Output Vital Signs (last 24 hours): Temp Pulse Resp BP Pulse Ox 98 F 79 19 114/70 100 02/25/17 06:33 02/25/17 06:33 02/25/17 06:33 02/25/17 06:33 02/24/17 16:55 - Medications Medications: Current Medications Benztropine Mesylate (Cogentin) 0.5 mg PO BID CM Last Admin: 02/25/17 17:23 Dose: 0.5 mg Chlorpromazine (Thorazine) 50 mg PO TID PRN; Protocol PRN Reason: Agitation Last Admin: 02/25/17 21:19 Dose: 50 mg Chlorpromazine (Thorazine) 50 mg IM TID PRN; Protocol PRN Reason: Agitation Last Admin: 02/25/17 23:34 Dose: 50 mg Diphenhydramine HCl (Benadryl) 50 mg PO HS PRN PRN Reason: Insomnia Last Admin: 02/25/17 21:19 Dose: 50 mg Perphenazine (Perphenazine) 2 mg PO TID CM Last Admin: 02/25/17 17:23 Dose: 2 mg Risperidone (Risperdal Tab) 2 mg PO TID CM PRN Reason: Protocol Last Admin: 02/25/17 17:23 Dose: 2 mg - Constitutional Appears: Well, In Acute Distress - Head Exam Head Exam: ATRAUMATIC, NORMAL INSPECTION, NORMOCEPHALIC - Eye Exam Eye Exam: Normal appearance - ENT Exam ENT Exam: Normal External Ear Exam - Neck Exam Neck Exam: Normal Inspection - Respiratory Exam Respiratory Exam: NORMAL BREATHING PATTERN - Cardiovascular Exam Cardiovascular Exam: absent: JVD - GI/Abdominal Exam GI & Abdominal Exam: absent: Distended - Rectal Exam Rectal Exam: Deferred - Exam Additional comments: deferred. - Extremities Exam Extremities Exam: Normal Inspection - Back Exam Back Exam: NORMAL INSPECTION - Neurological Exam Neurological Exam: Alert, Awake - Psychiatric Exam Psychiatric exam: Agitated - Skin Skin Exam: Normal Color Assessment and Plan - Assessment and Plan (Free Text) Assessment: Agitation. Suicidal ideation. Schizophrenia. Developmental disability. Plan: Four point restraint was ordered. Continue present management.
--- NOTE | 2017-02-26 09:15 | PCM.PYCHPN ---
Psychiatric Progress Note - Psychiatric Progress Note Patient seen today, length of contact: 25 min Patient Chief Complaint: "I don't know I just get very paranoid and scared and I get overwhelmed I need to be here, I don't mind being here". Problems Identified/Issues Discussed: Patient is a single 26 yo white female with psychiatric history of schizophrenia , prior psychiatric admissions-most recently 03/2015, in outpatient treatment with Dr. Roa, reportedly adherent with Invega 15 mg HS who was BIB police because she was found agitated and disorganized in the community. Patient also verbalized that she was suicidal and had thoughts of choking herself. Patient's presentation was complicated by the involvement of her father and patient's escalating agitation in the ER. ER notes and Dr. Ahn's consultation indicated that patient was initially pleasant, smiling and cooperative in the ER. However within an hour patient became agitated and started verbally and physically arguing with her 1:1. Patient demanded to leave the ER and required 4 point restraints for the safety of herself and other patients. Father was contacted by phone and he was adamant that patient doesn't receive restraints or medication especially Ativan. Staff accommodated father' s request and removed leg restraints.Subsequently patient ran and tried to elope from the ER and fell. Collateral was obtained from patient's psychiatrist, Dr. Roa. He confirmed that patient's behavior was not typical for her and recommended admission for stabilization.Dr. Ahn was also consulted and spoke with patient and family. Both father and patient eventually agreed to sign in voluntarily for psychiatric stabilization. Of note: Patient received prolixin 4 mg x1 prior to her arrival on the unit. Thus far patient has been in good control on the unit. I met with patient at bedside and she appears fairly groomed, oriented to month, year, location and circumstances. She has a childlike quality about her however she denies any diagnosis of mental retardation. She indicated that she attended regular classes throughout high school and college and that her grades were very good. Patient has been in treatment with her psychiatrist, Dr. Roa for last eight years. Patient is forthcoming about her bizarre and aggressive behavior yesterday. She reports that she has been taking invega as prescribed but "messed up somehow". She has noticed a gradual increase in paranoia and "disorientation" over time even with medication compliance. Specifically patient reports paranoid thoughts about her uncle harassing and stalking her with plan to rape her. Patient suddenly ran into a random preschool yesterday with the intent of saving the children from this uncle. Patient acknowledges that her uncle has no connection to the school whatsoever. Patient admits that she had suicidal thoughts to choke herself. She denies having any hallucinations during the course of events yesterday. Presently patient feels "much much better".. She denies having any thoughts of harming herself and becomes emotional when discussing having these thoughts yesterday. I ask her about depression and she responds "I don't know". She denies having any thoughts to harm her uncle at this time though she still has some suspicions about him. Patient is calm and cooperative. Her responses are coherent and consistent throughout the course of our interview. Her focus is good. Patient denies hallucinations and does not appear to be responding to internal stimuli. She is tolerating her medications and presently agrees with current treatment plan when reviewed with her at bedside this morning. PSYCHIATRIC HISTORY Patient reports at least 2 prior admissions. Most recently 03/2015 and also in her last year of high school. She has been in outpatient treatment with Dr. Roa for 8 years. She is prescribed Invega 15 mg HS. Prolixin has also been beneficial for her in the past. Patient denies any history of SA but reports suicidal ideations. Dr. Ahn 's ER consultation indicates that patient reported trying to cut herself with a knife 2 days prior to her ER presentation SOCIAL HISTORY Patient was born and raised in [place]. She is single. She has a boyfriend named Henry for 5 years. She has no children. She reside with her uncle and grandmother. Patient graduated from high school but completed her final year with home schooling due to decompensation. She denies any history of special education classes. Patient graduated [employer] with a major in psychology & human services. She denies any drug or alcohol or tobacco use. ~~~~~~~~~~~~~~~~~~~~~~~~~~~~~~ I reviewed recent staff notes. Patient has been paranoid, labile and unpredictable on the unit. Per nursing, she has bouts of disorganization and delusions. She told staff that her father was . She was odd and guarded during her social work evaluation. Then during father's evening visit she behaved very bizarrely. She spit the pizza out that he brought for her and threw herself to the floor. Father was seen praying over her and staff requested that father leave the visiting area because of her distress. Patient also requested that father not be allowed to visit. Of note, father didn't provide any POA paperwork. He didn't provide invega home medication for patient to take on the unit A few hours later (~11:35 pm) patient started screaming "kill him, kill my father, he is a devil" and tried to attack staff. Jasmin levin was called and patient was assessed by sean GRIFFIN. She was given Thorazine 50 mg IM and put in 4 point restraints . I met with patient in the quiet room this morning. She remains alert and oriented to month, year, circumstances and location. Patient doesn't have an explanation for her behaviors yesterday except to say "I don't know I just get very paranoid and scared and I get overwhelmed I need to be here, I don't mind being here". She denies that her father is abusive but does report that she sometimes "feels exposed and awkward" around her father and uncle. Patient denies having any hallucinations and again she states "I don't think I am depressed". She is calm during our conversation and doesn't demonstrate any bizarre behaviors or delusions. Patient is aware that her father is alive and she denies that he is evil. However she does not want him visiting with her on the unit, indicated she's 26 years old and not a child. Her inside and judgment are limited and she remains unpredictable and psychotic. Diagnostic Results: Paranoid Schizophrenia R/O Schizoaffective Disorder Developmental Disorder NOS/Neurocognitive Disorder NOS Medication Change: No Medical Record Reviewed: Yes Mental Status Examination - Cognitive Function Orientation: Person, Place, Situation Attention: WNL - Mood Mood: Anxious ("I don't know I just get very paranoid and scared and I get overwhelmed I need to be here, I don't mind being here". ), Other (labile, unpredictable) - Affect Affect: Constricted - Formal Thought Process Formal Thought Process: Delusions, Paranoia, Loosening of associations - Suicidal Ideation Suicidal Ideation: No - Homicidal Ideation Homicidal Ideation: No Goal/Treatment Plan - Goal/Treatment Plan Progress Toward Problem(s) and Goals/Treatment Plan: * group, milieu and supportive tx * Risperdal 2 mg po TID until home medication Invega 15 mg HS is provided by family. This was not provided during evening visit on 02/25/17 * Cogentin 0.5 mg po BID for EPS prophylaxis * Prolixin 2 mg po TID for hallucinations and disorganizations * Thorazine 50 mg po/IM TID prn: agitation * Benadryl 50 mg HS prn * Appreciate f/u by Dr. Munguia on 02/25/17~patient has been medically cleared * Appreciate f/u by Dr. Barrios, patient required 4-point restraints at 1 AM on * Vitals reviewed and noted below: Selected Entries 02/25/17 02/25/17 04:00 06:33 Temperature 98 F Pulse Rate 111 H 79 Respiratory 19 Rate Blood Pressure 141/89 114/70 ER LABS AND STUDIES 02/24/17 10:33: Beta HCG, Quant < 2.39 02/24/17 10:33: WBC 8.6, RBC 4.28, Hgb 12.5, Hct 36.6, MCV 85.5, MCH 29.2, MCHC 34.2, RDW 12.6, Plt Count 230, MPV 11.2 H, Gran % 70.3 H, Lymph % (Auto) 22.1, [place] % (Auto) 7.1 H, Eos % (Auto) 0.2 L, Baso % (Auto) 0.3, Gran # 6.04, Lymph # 1.9, [place] # 0.6, Eos # 0.0, Baso # 0.03 02/24/17 10:33: Alcohol, Quantitative < 10 02/24/17 10:33: Salicylates < 1 L, Acetaminophen < 10.0 L 02/24/17 10:33: Sodium 139, Potassium 3.7, Chloride 105, Carbon Dioxide 23, Anion Gap 15, BUN 6 L, Creatinine 0.7, Est GFR ( Amer) > 60, Est GFR (Non -Af Amer) > 60, Random Glucose 134 H, Calcium 9.8, Total Bilirubin 0.4, AST 24, ALT 35, Alkaline Phosphatase 55, Total Protein 7.2, Albumin 4.2, Globulin 2.9, Albumin/Globulin Ratio 1.4 02/24/17 10:46 -EKG: Sinus Tachycardia @ 104 BPM, no ST elevation or depression, no T wave inversion. FLOOR LABS 02/25/17 02/25/17 06:00 06:00 Fasting Glucose 92 Triglycerides 45 Cholesterol 171 LDL Cholesterol Direct 65 HDL Cholesterol 79 H Free T4 1.34 TSH 3rd Generation 2.25 02/25/17 06:00 RPR Nonreactive Addendum Addendum: Spoke with nursing. Invega tablets were brought in by family today. Will discontinue Risperdal in favor of Invega 15 mg HS with cogentin 1 mg HS. I have reviewed nursing notes and patient still remains quite psychotic, paranoid, sexually preoccupied and unpredictable with some periods of lucidity. Will also continue prolixin as patient appeared to be decompensating while compliant with Invega. It appears that patient requires prolixin as a second antipsychotic. 02/26/17 14:51 02/26/17 14:52
[2017-02-26] MEDS: PALIPERIDONE 6 MG PO SCH (21:11)
[2017-02-26] MEDS: PALIPERIDONE 9 MG PO SCH (21:12)
--- NOTE | 2017-02-27 16:11 | PCM.PYCHPN ---
Psychiatric Progress Note - Psychiatric Progress Note Patient seen today, length of contact: 30 minute Patient Chief Complaint: "you make me feel very uncomfortable..." Diagnostic Results: 02/24/17 10:33 02/24/17 10:33 Lab Results 02/25/17 06:00: RPR Nonreactive 02/25/17 06:00: Free T4 1.34, TSH 3rd Generation 2.25 02/25/17 06:00: Fasting Glucose 92, Triglycerides 45, Cholesterol 171, LDL Cholesterol Direct 65, HDL Cholesterol 79 H 02/24/17 15:30: Urine Opiates Screen Negative, Urine Methadone Screen Negative, Ur Barbiturates Screen Negative, Ur Phencyclidine Scrn Negative, Ur Amphetamines Screen Negative, U Benzodiazepines Scrn Negative, U Oth Cocaine Metabols Negative, U Cannabinoids Screen Negative 02/24/17 15:30: Urine Color Yellow, Urine Appearance Clear, Urine pH 5.5, Ur Specific [place] <= 1.005, Urine Protein Negative, Urine Glucose (UA) Negative, Urine Ketones Negative, Urine Blood Negative, Urine Nitrate Negative, Urine Bilirubin Negative, Urine Urobilinogen 0.2, Ur Leukocyte Esterase Negative 02/24/17 10:33: Beta HCG, Quant < 2.39 02/24/17 10:33: WBC 8.6, RBC 4.28, Hgb 12.5, Hct 36.6, MCV 85.5, MCH 29.2, MCHC 34.2, RDW 12.6, Plt Count 230, MPV 11.2 H, Gran % 70.3 H, Lymph % (Auto) 22.1, [place] % (Auto) 7.1 H, Eos % (Auto) 0.2 L, Baso % (Auto) 0.3, Gran # 6.04, Lymph # 1.9, [place] # 0.6, Eos # 0.0, Baso # 0.03 02/24/17 10:33: Alcohol, Quantitative < 10 02/24/17 10:33: Salicylates < 1 L, Acetaminophen < 10.0 L 02/24/17 10:33: Sodium 139, Potassium 3.7, Chloride 105, Carbon Dioxide 23, Anion Gap 15, BUN 6 L, Creatinine 0.7, Est GFR ( Amer) > 60, Est GFR (Non -Af Amer) > 60, Random Glucose 134 H, Calcium 9.8, Total Bilirubin 0.4, AST 24, ALT 35, Alkaline Phosphatase 55, Total Protein 7.2, Albumin 4.2, Globulin 2.9, Albumin/Globulin Ratio 1.4 Vital Signs Temp Pulse Resp BP Pulse Ox 02/27/17 07:14 98.4 F 94 H 17 115/72 02/26/17 07:05 97.9 F 130 H 18 135/80 02/25/17 06:33 98 F 79 19 114/70 02/25/17 04:00 87 104/63 02/24/17 18:01 20 02/24/17 16:55 100 H 18 124/79 100 02/24/17 15:46 102 H 18 126/56 L 100 02/24/17 10:19 98.7 F 116 H 20 132/71 99 DSM 5 Symptoms Update: Shortly pt is a single 26 yo white female with psychiatric history of schizophrenia, prior psychiatric admissions-most recently 03/2015, in outpatient treatment with Dr. Roa, reportedly adherent with Invega 15 mg HS who was BIB police because she was found agitated and disorganized in the community. Patient also verbalized that she was suicidal and had thoughts of choking herself, pt also verbalized that she attempted to cut her wrists, no cuts, no scratched found. pt needed to be admitted for evaluation and stabilization of disorganized, psychotic, agitated, aggressive behavior, please see consultation note in ED. as per report from the staff pt was agitated and tressa Zamudio was called, pt was in restraint and needed to have injection of thorazine. pt was also paranoid towards her father, saying that he needs to be killed because "he is a devil". atient was seen today at the morning time at the treatment team meeting, patient is still on one-to-one, patient presented herself much better as compared Monday, patient was able to hold the interview but patient obviously paranoid when was asked about her previous suicidal attempts, patient said "you make me feel very uncomfortable". Patient also is paranoid towards one of her uncles who lives with her, patient said "I don't know for sure, I feel very uncomfortable around him, but may be it is in my head". as per staff report by the end of today's day, pt is much better, will d/c 1:1. pt reported tolerating meds well, no side effects observed or reported, AIMS 0, no EPS. mental status examination: Patient presented to have poor personal hygiene, has a lot of stains on her clothing, intermittent eye contact, speech was overproductive but low volume, mood described "I'm depressed a little bit", thought process circumstantial and tangential, both content: Patient obviously paranoid, disorganized thoughts and behavior, appears to be internally preoccupied and difficulties to stay focused , patient denied thoughts of harming herself or others, denied intent or plan, insight and judgment are limited, impulses are better controlled. Diagnostic Results: Paranoid Schizophrenia R/O Schizoaffective Disorder Developmental Disorder NOS/Neurocognitive Disorder NOS Plan: Milieu/structure/supportive therapy Medical consult appreciated, see medical team note for more detailed info SW consultation for discharge plan and social issues Med management in [place] 15 mg daily, patient family brought this medication to the hospital, for psychotic symptoms Risperdal was discontinued Perphenazine mg 3 times a day scheduled, pt was doing well on this medication in the past Cogentin 1 mg at the nighttime for EPS Family involvement Follow up on labs Will monitor closely SW evaluation for d/c planning Pt was educated about risk/benefits and alternatives of medications, coping strategies (safety plan, suicide prevention), relapse prevention, importance of follow up with psychiatrist and therapist, stay away from drugs/alcohol/smoking Medication Change: Yes (perphenazine was increased) Medical Record Reviewed: Yes Consults ordered or reviewed: medical consult appreciated Mental Status Examination - Cognitive Function Orientation: Person, Place, Situation Attention: WNL - Mood Mood: Other (labile, unpredictable) Goal/Treatment Plan - Goal/Treatment Plan Need for Continued Stay: Remain at risks for inpatient hospitalization, Severe depression anxiety, Discharge may exacerbated symptoms, Severe functional impairment Estimated Date of D/C: 03/03/17 - Smoking Cessation Smoking Cessation Initiated: No Reason for not providing: denied smoking
--- NOTE | 2017-02-27 16:47 | PCM.BM ---
Treatment Plan Problems - Problems identified on initial assessmt agitated behavior Date Initiated: 02/24/17 Time Initiated: 18:08 Assessment reference: HP, NA Status: Active alteration in emotional status Date Initiated: 02/24/17 Time Initiated: 18:09 Assessment reference: HP, NA Status: Active delusions Date Initiated: 02/24/17 Time Initiated: 18:10 Assessment reference: HP, NA Status: Active thought process alteration Date Initiated: 02/24/17 Time Initiated: 18:10 Assessment reference: HP, NA Treatment assets and liabiliti Patient Assests: educated, self-reliant, ADL independent, physically healthy, strong mini Patient Liabilities: dietary restrictions - Milieu Protocol Maintain good personal hygiene: daily Encourage regular showers, daily Remind patient to perform daily oral care, daily Assist patient to perform ADL's Maintain personal safety: daily Educate patient to report safety concerns to staff, daily Monitor environment for contraband/sharps Medication safety: Monitor for expected outcome, potential side effects: daily, Assess barriers to learning: daily, Assess readiness for medication education: daily Milieu Narrative: * group, milieu and supportive tx * Risperdal 2 mg po TID until home medication Invega 15 mg HS is provided by family. This was not provided during evening visit on 02/25/17 * Cogentin 0.5 mg po BID for EPS prophylaxis * Prolixin 2 mg po TID for hallucinations and disorganizations * Thorazine 50 mg po/IM TID prn: agitation * Benadryl 50 mg HS prn * Appreciate f/u by Dr. Munguia on 02/25/17~patient has been medically cleared * Appreciate f/u by Dr. Barrios, patient required 4-point restraints at 1 AM on * Vitals reviewed and noted below: Selected Entries 02/25/17 02/25/17 04:00 06:33 Temperature 98 F Pulse Rate 111 H 79 Respiratory 19 Rate Blood Pressure 141/89 114/70 ER LABS AND STUDIES 02/24/17 10:33: Beta HCG, Quant < 2.39 02/24/17 10:33: WBC 8.6, RBC 4.28, Hgb 12.5, Hct 36.6, MCV 85.5, MCH 29.2, MCHC 34.2, RDW 12.6, Plt Count 230, MPV 11.2 H, Gran % 70.3 H, Lymph % (Auto) 22.1, [place] % (Auto) 7.1 H, Eos % (Auto) 0.2 L, Baso % (Auto) 0.3, Gran # 6.04, Lymph # 1.9, [place] # 0.6, Eos # 0.0, Baso # 0.03 02/24/17 10:33: Alcohol, Quantitative < 10 02/24/17 10:33: Salicylates < 1 L, Acetaminophen < 10.0 L 02/24/17 10:33: Sodium 139, Potassium 3.7, Chloride 105, Carbon Dioxide 23, Anion Gap 15, BUN 6 L, Creatinine 0.7, Est GFR ( Amer) > 60, Est GFR (Non -Af Amer) > 60, Random Glucose 134 H, Calcium 9.8, Total Bilirubin 0.4, AST 24, ALT 35, Alkaline Phosphatase 55, Total Protein 7.2, Albumin 4.2, Globulin 2.9, Albumin/Globulin Ratio 1.4 02/24/17 10:46 -EKG: Sinus Tachycardia @ 104 BPM, no ST elevation or depression, no T wave inversion. FLOOR LABS 02/25/17 02/25/17 06:00 06:00 Fasting Glucose 92 Triglycerides 45 Cholesterol 171 LDL Cholesterol Direct 65 HDL Cholesterol 79 H Free T4 1.34 TSH 3rd Generation 2.25 02/25/17 06:00 RPR Nonreactive Family Contact Family involvement: Family/SO is involved Discharge/Continuing Care - Education Needs Education Needs: Patient Medication, Patient Diagnosis/Disease Process, Patient Coping Skills, Patient Anger Management skills, Patient Community resources, Patient Activities of Daily Living, Patient Personal Hygiene/Grooming - Discharge Discharge Criteria: Tolerates medication w/o severe side effects, Free of Suicidal thoughts, Free of paranoid thoughts, Free of agitation, Normal sleep pattern, Ability to care for self Discharge to:: Home - Treatment Team Participation Patient/Family/SO Statement: * group, milieu and supportive tx * Risperdal 2 mg po TID until home medication Invega 15 mg HS is provided by family. This was not provided during evening visit on 02/25/17 * Cogentin 0.5 mg po BID for EPS prophylaxis * Prolixin 2 mg po TID for hallucinations and disorganizations * Thorazine 50 mg po/IM TID prn: agitation * Benadryl 50 mg HS prn * Appreciate f/u by Dr. Munguia on 02/25/17~patient has been medically cleared * Appreciate f/u by Dr. Barrios, patient required 4-point restraints at 1 AM on * Vitals reviewed and noted below: Selected Entries 02/25/17 02/25/17 04:00 06:33 Temperature 98 F Pulse Rate 111 H 79 Respiratory 19 Rate Blood Pressure 141/89 114/70 ER LABS AND STUDIES 02/24/17 10:33: Beta HCG, Quant < 2.39 02/24/17 10:33: WBC 8.6, RBC 4.28, Hgb 12.5, Hct 36.6, MCV 85.5, MCH 29.2, MCHC 34.2, RDW 12.6, Plt Count 230, MPV 11.2 H, Gran % 70.3 H, Lymph % (Auto) 22.1, [place] % (Auto) 7.1 H, Eos % (Auto) 0.2 L, Baso % (Auto) 0.3, Gran # 6.04, Lymph # 1.9, [place] # 0.6, Eos # 0.0, Baso # 0.03 02/24/17 10:33: Alcohol, Quantitative < 10 02/24/17 10:33: Salicylates < 1 L, Acetaminophen < 10.0 L 02/24/17 10:33: Sodium 139, Potassium 3.7, Chloride 105, Carbon Dioxide 23, Anion Gap 15, BUN 6 L, Creatinine 0.7, Est GFR ( Amer) > 60, Est GFR (Non -Af Amer) > 60, Random Glucose 134 H, Calcium 9.8, Total Bilirubin 0.4, AST 24, ALT 35, Alkaline Phosphatase 55, Total Protein 7.2, Albumin 4.2, Globulin 2.9, Albumin/Globulin Ratio 1.4 02/24/17 10:46 -EKG: Sinus Tachycardia @ 104 BPM, no ST elevation or depression, no T wave inversion. FLOOR LABS 02/25/17 02/25/17 06:00 06:00 Fasting Glucose 92 Triglycerides 45 Cholesterol 171 LDL Cholesterol Direct 65 HDL Cholesterol 79 H Free T4 1.34 TSH 3rd Generation 2.25 02/25/17 06:00 RPR Nonreactive
[2017-02-27] MEDS: PALIPERIDONE 9 MG PO SCH (21:38)
[2017-02-27] MEDS: PALIPERIDONE 6 MG PO SCH (21:38)
--- NOTE | 2017-02-28 13:54 | PCM.PYCHPN ---
Psychiatric Progress Note - Psychiatric Progress Note Patient seen today, length of contact: 30 minute Patient Chief Complaint: "I feel little better" Diagnostic Results: 02/24/17 10:33 02/24/17 10:33 Lab Results 02/25/17 06:00: RPR Nonreactive 02/25/17 06:00: Free T4 1.34, TSH 3rd Generation 2.25 02/25/17 06:00: Fasting Glucose 92, Triglycerides 45, Cholesterol 171, LDL Cholesterol Direct 65, HDL Cholesterol 79 H 02/24/17 15:30: Urine Opiates Screen Negative, Urine Methadone Screen Negative, Ur Barbiturates Screen Negative, Ur Phencyclidine Scrn Negative, Ur Amphetamines Screen Negative, U Benzodiazepines Scrn Negative, U Oth Cocaine Metabols Negative, U Cannabinoids Screen Negative 02/24/17 15:30: Urine Color Yellow, Urine Appearance Clear, Urine pH 5.5, Ur Specific [place] <= 1.005, Urine Protein Negative, Urine Glucose (UA) Negative, Urine Ketones Negative, Urine Blood Negative, Urine Nitrate Negative, Urine Bilirubin Negative, Urine Urobilinogen 0.2, Ur Leukocyte Esterase Negative 02/24/17 10:33: Beta HCG, Quant < 2.39 02/24/17 10:33: WBC 8.6, RBC 4.28, Hgb 12.5, Hct 36.6, MCV 85.5, MCH 29.2, MCHC 34.2, RDW 12.6, Plt Count 230, MPV 11.2 H, Gran % 70.3 H, Lymph % (Auto) 22.1, [place] % (Auto) 7.1 H, Eos % (Auto) 0.2 L, Baso % (Auto) 0.3, Gran # 6.04, Lymph # 1.9, [place] # 0.6, Eos # 0.0, Baso # 0.03 02/24/17 10:33: Alcohol, Quantitative < 10 02/24/17 10:33: Salicylates < 1 L, Acetaminophen < 10.0 L 02/24/17 10:33: Sodium 139, Potassium 3.7, Chloride 105, Carbon Dioxide 23, Anion Gap 15, BUN 6 L, Creatinine 0.7, Est GFR ( Amer) > 60, Est GFR (Non -Af Amer) > 60, Random Glucose 134 H, Calcium 9.8, Total Bilirubin 0.4, AST 24, ALT 35, Alkaline Phosphatase 55, Total Protein 7.2, Albumin 4.2, Globulin 2.9, Albumin/Globulin Ratio 1.4 Vital Signs Temp Pulse Resp BP Pulse Ox 02/27/17 07:14 98.4 F 94 H 17 115/72 02/26/17 07:05 97.9 F 130 H 18 135/80 02/25/17 06:33 98 F 79 19 114/70 02/25/17 04:00 87 104/63 02/24/17 18:01 20 02/24/17 16:55 100 H 18 124/79 100 02/24/17 15:46 102 H 18 126/56 L 100 02/24/17 10:19 98.7 F 116 H 20 132/71 99 Temp Pulse Resp BP Pulse Ox 97.3 F L 81 20 104/65 100 02/28/17 06:55 02/28/17 06:55 02/28/17 06:55 02/28/17 06:55 02/24/17 16:55 DSM 5 Symptoms Update: Shortly pt is a single 26 yo white female with psychiatric history of schizophrenia, prior psychiatric admissions-most recently 03/2015, in outpatient treatment with Dr. Roa, reportedly adherent with Invega 15 mg HS who was BIB police because she was found agitated and disorganized in the community. Patient also verbalized that she was suicidal and had thoughts of choking herself, pt also verbalized that she attempted to cut her wrists, no cuts, no scratched found. pt needed to be admitted for evaluation and stabilization of disorganized, psychotic, agitated, aggressive behavior, please see consultation note in ED. as per report last episode of agitated behavior was over the weekend. night was uneventful. pt was seen at am in her room. pt obviously has some improvements with her symptoms. pt much calmer, less paranoid, but still guarded. pt said the main reason for her hospitalization was "I did not have enough meds, I run short on meds, I missed morning dose of Invega", pt was educated about importance to take meds as prescribed, pt was educated about Invega sustenna, pt wants to think about it. pt said "I was not doing well, I was feeling very paranoid, I was feeling unease. Pt now feels "little better". pt denied hearing voices or seeing things, "I hear a little voices..." pt is less paranoid towards of her father. pt gave permission to speak to her mother [phone], mother said that pt "was disorganized and I could not find 6mg of Invega", pt was taking meds, but was dropping them, pt and mother educated about Invega sustenna. pt's family wants to come to the family meeting on Monday. Pt is off 1:1, tolerates well. pt reported tolerating meds well, no side effects observed or reported, AIMS 0, no EPS. mental status examination: Patient presented to have poor personal hygiene, has a lot of stains on her clothing, intermittent eye contact, speech was overproductive but low volume, mood described "I'm depressed a little bit", thought process circumstantial and tangential, both content: Patient obviously paranoid, disorganized thoughts and behavior, appears to be internally preoccupied and difficulties to stay focused , patient denied thoughts of harming herself or others, denied intent or plan, insight and judgment are limited, impulses are better controlled. Diagnostic Results: Paranoid Schizophrenia R/O Schizoaffective Disorder Developmental Disorder NOS/Neurocognitive Disorder NOS Plan: Milieu/structure/supportive therapy Medical consult appreciated, see medical team note for more detailed info consultation for discharge plan and social issues Med management Invega 15 mg daily, patient family brought this medication to the hospital, for psychotic symptoms Perphenazine 4mg 3 times a day scheduled, pt was doing well on this medication in the past Cogentin 1 mg at the nighttime for EPS Family involvement, family wants to come for family meeting on Monday, pt has f/ u appt with her private psychiatrist on March 07. Follow up on labs Will monitor closely evaluation for d/c planning Pt was educated about risk/benefits and alternatives of medications, coping strategies (safety plan, suicide prevention), relapse prevention, importance of follow up with psychiatrist and therapist, stay away from drugs/alcohol/smoking Medication Change: Yes (perphenazine was increased) Medical Record Reviewed: Yes Consults ordered or reviewed: medical consult appreciated Mental Status Examination - Cognitive Function Orientation: Person, Place, Situation - Mood Mood: Other (labile, unpredictable) - Suicidal Ideation Suicidal Ideation: No - Homicidal Ideation Homicidal Ideation: No Goal/Treatment Plan - Goal/Treatment Plan Need for Continued Stay: Remain at risks for inpatient hospitalization, Severe depression anxiety, Discharge may exacerbated symptoms, Severe functional impairment Estimated Date of D/C: 03/06/17
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
[2017-02-28] MEDS: PALIPERIDONE 9 MG PO SCH (21:10)
[2017-02-28] MEDS: PALIPERIDONE 6 MG PO SCH (21:10)
--- NOTE | 2017-03-01 09:23 | RAD ---
PROCEDURE: Bilateral Feet Radiographs. Bones HISTORY: possible fracture COMPARISON: None. FINDINGS: BONES: Right Foot: No acute fractures. Left Foot: No acute fractures. JOINTS: Right Foot: Normal. No osteoarthritis. Left Foot: Normal. No osteoarthritis. SOFT TISSUES: Right Foot: Normal. Left Foot: Normal. OTHER FINDINGS: None. IMPRESSION: No acute findings related to/accounting for the clinical presentation.
--- NOTE | 2017-03-01 12:27 | CP.PCM.PN ---
Subjective - Date & Time of Evaluation Date of Evaluation: 03/01/17 Time of Evaluation: 12:24 - Subjective Subjective: 26 y/o female seen and evaluated at bedside complaining of very minimal pain in her right 4th digit. Patient is AAOx3 and is in NAD. Patient appears to be resting comfortably in her bed and denies of any acute overnight events. Patient states that she has very little pain on the right foot when she walks. Patient denies of any other pedal complains at this time. Patient denies of any recent F/N/V/C/SOB/CP today. Objective - Vital Signs/Intake and Output Vital Signs (last 24 hours): Temp Pulse Resp BP Pulse Ox 97.6 F 76 20 94/54 L 100 03/01/17 06:51 03/01/17 06:51 03/01/17 06:51 03/01/17 06:51 02/24/17 16:55 - Medications Medications: Current Medications Benztropine Mesylate (Cogentin) 1 mg PO HS CM Last Admin: 02/28/17 21:10 Dose: 1 mg Chlorpromazine (Thorazine) 50 mg PO TID PRN; Protocol PRN Reason: Agitation Last Admin: 02/26/17 21:11 Dose: 50 mg Chlorpromazine (Thorazine) 50 mg IM TID PRN; Protocol PRN Reason: Agitation Last Admin: 02/25/17 23:34 Dose: 50 mg Diphenhydramine HCl (Benadryl) 50 mg PO HS PRN PRN Reason: Insomnia Last Admin: 02/28/17 21:10 Dose: 50 mg Home Med (Home Med) 1 unit PO HS CM Last Admin: 02/28/17 21:10 Dose: 1 unit Home Med (Home Med) 1 unit PO HS CM Last Admin: 02/28/17 21:10 Dose: 1 unit Perphenazine (Perphenazine) 4 mg PO TID CM Last Admin: 03/01/17 09:04 Dose: 4 mg - Constitutional Appears: Well, Non-toxic, No Acute Distress - Extremities Exam Extremities Exam: absent: Calf Tenderness Additional comments: Bilateral LE exam: VASC: DP/PT pulses are palpable 2/4, [employer]: < 3 sec to all digits, Temp. gradient : warm to cool from proximal to distal, no pitting or non-pitting edema noted bilaterally DERM: Mild ecchymosis noted to the distal right forefoot with hyperpigmented skin in the 3rd interspace, no interdigital maceration, no open lesions, no clinical suspicion of active infection NEURO: Protective sensation grossly intact ORTHO: No pain on palpation of the forefoot or the digits on the right, no pain during active or passive ROM at the ankle joint or MTPJ b/l, MMT: 5/5 in all 4 compartment - Neurological Exam Neurological Exam: Alert, Awake, Oriented x3 - Psychiatric Exam Psychiatric exam: Normal Affect, Normal Mood Assessment and Plan - Assessment and Plan (Free Text) Assessment: 26 y/o female seen and evaluated for minimal non-displaced, [id number] base of the right 4th proximal phalanx fracture Plan: Patient evaluated and charts reviewed Patient discussed in details with attending Dr. Shelia Espana reviewed - afebrie X-rays of the b/l feet ordered reviewed: - Non intra-articular, non-displaced fracture noted at the base of the 4th phalanx on the right Placed in a surgical shoe - patient to remain in Post-op shoes whenever weightbearing Patient is stable from podiatry standpoint Please re-consult as needed - thank you for allowing podiatry to take part in patient care
--- NOTE | 2017-03-01 13:36 | PCM.PYCHPN ---
Psychiatric Progress Note - Psychiatric Progress Note Patient seen today, length of contact: 30 minute Patient Chief Complaint: "I like my medications now" Medical Problems: pt was seen by wax pourer see notes for more detailed info Diagnostic Results: 02/24/17 10:33 02/24/17 10:33 Lab Results 02/25/17 06:00: RPR Nonreactive 02/25/17 06:00: Free T4 1.34, TSH 3rd Generation 2.25 02/25/17 06:00: Fasting Glucose 92, Triglycerides 45, Cholesterol 171, LDL Cholesterol Direct 65, HDL Cholesterol 79 H 02/24/17 15:30: Urine Opiates Screen Negative, Urine Methadone Screen Negative, Ur Barbiturates Screen Negative, Ur Phencyclidine Scrn Negative, Ur Amphetamines Screen Negative, U Benzodiazepines Scrn Negative, U Oth Cocaine Metabols Negative, U Cannabinoids Screen Negative 02/24/17 15:30: Urine Color Yellow, Urine Appearance Clear, Urine pH 5.5, Ur Specific [place] <= 1.005, Urine Protein Negative, Urine Glucose (UA) Negative, Urine Ketones Negative, Urine Blood Negative, Urine Nitrate Negative, Urine Bilirubin Negative, Urine Urobilinogen 0.2, Ur Leukocyte Esterase Negative 02/24/17 10:33: Beta HCG, Quant < 2.39 02/24/17 10:33: WBC 8.6, RBC 4.28, Hgb 12.5, Hct 36.6, MCV 85.5, MCH 29.2, MCHC 34.2, RDW 12.6, Plt Count 230, MPV 11.2 H, Gran % 70.3 H, Lymph % (Auto) 22.1, [place] % (Auto) 7.1 H, Eos % (Auto) 0.2 L, Baso % (Auto) 0.3, Gran # 6.04, Lymph # 1.9, [place] # 0.6, Eos # 0.0, Baso # 0.03 02/24/17 10:33: Alcohol, Quantitative < 10 02/24/17 10:33: Salicylates < 1 L, Acetaminophen < 10.0 L 02/24/17 10:33: Sodium 139, Potassium 3.7, Chloride 105, Carbon Dioxide 23, Anion Gap 15, BUN 6 L, Creatinine 0.7, Est GFR ( Amer) > 60, Est GFR (Non -Af Amer) > 60, Random Glucose 134 H, Calcium 9.8, Total Bilirubin 0.4, AST 24, ALT 35, Alkaline Phosphatase 55, Total Protein 7.2, Albumin 4.2, Globulin 2.9, Albumin/Globulin Ratio 1.4 Vital Signs Temp Pulse Resp BP Pulse Ox 02/27/17 07:14 98.4 F 94 H 17 115/72 02/26/17 07:05 97.9 F 130 H 18 135/80 02/25/17 06:33 98 F 79 19 114/70 02/25/17 04:00 87 104/63 02/24/17 18:01 20 02/24/17 16:55 100 H 18 124/79 100 02/24/17 15:46 102 H 18 126/56 L 100 02/24/17 10:19 98.7 F 116 H 20 132/71 99 Temp Pulse Resp BP Pulse Ox 97.3 F L 81 20 104/65 100 02/28/17 06:55 02/28/17 06:55 02/28/17 06:55 02/28/17 06:55 02/24/17 16:55 XR was done WN DSM 5 Symptoms Update: Shortly pt is a single 26 yo white female with psychiatric history of schizophrenia, prior psychiatric admissions-most recently 03/2015, in outpatient treatment with Dr. Roa, reportedly adherent with Invega 15 mg HS who was BIB police because she was found agitated and disorganized in the community. Patient also verbalized that she was suicidal and had thoughts of choking herself, pt also verbalized that she attempted to cut her wrists, no cuts, no scratched found. pt needed to be admitted for evaluation and stabilization of disorganized, psychotic, agitated, aggressive behavior, please see consultation note in ED. as per report last episode of agitated behavior was over the weekend, at present moment pt is in behavioral control, at the same time pt is paranoid, not participating in groups, personal hygiene is improving, but still pt has a lot of stains on her clothings. pt was seen by wax pourer, [facility] of the [facility]. pt was seen at the dinning area, pt obviously has some improvements with her symptoms. pt much calmer, less paranoid, but still guarded, refused to speak about her boyfriend "I will keep it for myself", pt also said that she feels "unease with one of my uncle, he did not do anything wrong, but I feel weird abut him, may be it is in my head". Pt is off 1:1, tolerates well. pt reported tolerating meds well, no side effects observed or reported, AIMS 0, no EPS. mental status examination: Patient presented to have improved personal hygiene, has a lot of stains on her clothing, intermittent eye contact, speech was overproductive but low volume, mood described "I'm depressed a little bit", thought process circumstantial and tangential, both content: Patient obviously paranoid, but wiht some improvement , appears to be internally preoccupied and restless, difficulties to stay focused, patient denied thoughts of harming herself or others, denied intent or plan, insight and judgment are limited, impulses are better controlled. Diagnostic Results: Paranoid Schizophrenia R/O Schizoaffective Disorder Developmental Disorder NOS/Neurocognitive Disorder NOS Plan: Milieu/structure/supportive therapy Medical consult appreciated, see medical team note for more detailed info consultation for discharge plan and social issues Med management Invega 15 mg daily, patient family brought this medication to the hospital, for psychotic symptoms Perphenazine 4mg 3 times a day scheduled, pt was doing well on this medication in the past Cogentin 1 mg at morning and evening for EPS Family involvement, family wants to come for family meeting on Monday, pt has f/ u appt with her private psychiatrist on March 07. Follow up on labs Will monitor closely evaluation for d/c planning Pt was educated about risk/benefits and alternatives of medications, coping strategies (safety plan, suicide prevention), relapse prevention, importance of follow up with psychiatrist and therapist, stay away from drugs/alcohol/smoking Medication Change: Yes (cogentin increased ) Medical Record Reviewed: Yes Consults ordered or reviewed: medical consult appreciated podiatry consult appreciated see notes for more detailed information Mental Status Examination - Cognitive Function Orientation: Person, Place, Situation - Mood Mood: Other (labile, unpredictable) - Affect Affect: Constricted - Formal Thought Process Formal Thought Process: Delusions, Paranoia, Loosening of associations - Suicidal Ideation Suicidal Ideation: No - Homicidal Ideation Homicidal Ideation: No Goal/Treatment Plan - Goal/Treatment Plan Need for Continued Stay: Remain at risks for inpatient hospitalization, Severe depression anxiety, Discharge may exacerbated symptoms, Severe functional impairment Estimated Date of D/C: 03/06/17
[2017-03-01] MEDS: PALIPERIDONE 6 MG PO SCH (21:00)
[2017-03-01] MEDS: PALIPERIDONE 9 MG PO SCH (21:00)
--- NOTE | 2017-03-02 14:12 | PCM.PYCHPN ---
Psychiatric Progress Note - Psychiatric Progress Note Patient seen today, length of contact: 30 minute Patient Chief Complaint: "I like my medications now" Medical Problems: pt was seen by sales route driver helper see notes for more detailed info Diagnostic Results: 02/24/17 10:33 02/24/17 10:33 Lab Results 02/25/17 06:00: RPR Nonreactive 02/25/17 06:00: Free T4 1.34, TSH 3rd Generation 2.25 02/25/17 06:00: Fasting Glucose 92, Triglycerides 45, Cholesterol 171, LDL Cholesterol Direct 65, HDL Cholesterol 79 H 02/24/17 15:30: Urine Opiates Screen Negative, Urine Methadone Screen Negative, Ur Barbiturates Screen Negative, Ur Phencyclidine Scrn Negative, Ur Amphetamines Screen Negative, U Benzodiazepines Scrn Negative, U Oth Cocaine Metabols Negative, U Cannabinoids Screen Negative 02/24/17 15:30: Urine Color Yellow, Urine Appearance Clear, Urine pH 5.5, Ur Specific [place] <= 1.005, Urine Protein Negative, Urine Glucose (UA) Negative, Urine Ketones Negative, Urine Blood Negative, Urine Nitrate Negative, Urine Bilirubin Negative, Urine Urobilinogen 0.2, Ur Leukocyte Esterase Negative 02/24/17 10:33: Beta HCG, Quant < 2.39 02/24/17 10:33: WBC 8.6, RBC 4.28, Hgb 12.5, Hct 36.6, MCV 85.5, MCH 29.2, MCHC 34.2, RDW 12.6, Plt Count 230, MPV 11.2 H, Gran % 70.3 H, Lymph % (Auto) 22.1, [place] % (Auto) 7.1 H, Eos % (Auto) 0.2 L, Baso % (Auto) 0.3, Gran # 6.04, Lymph # 1.9, [place] # 0.6, Eos # 0.0, Baso # 0.03 02/24/17 10:33: Alcohol, Quantitative < 10 02/24/17 10:33: Salicylates < 1 L, Acetaminophen < 10.0 L 02/24/17 10:33: Sodium 139, Potassium 3.7, Chloride 105, Carbon Dioxide 23, Anion Gap 15, BUN 6 L, Creatinine 0.7, Est GFR ( Amer) > 60, Est GFR (Non -Af Amer) > 60, Random Glucose 134 H, Calcium 9.8, Total Bilirubin 0.4, AST 24, ALT 35, Alkaline Phosphatase 55, Total Protein 7.2, Albumin 4.2, Globulin 2.9, Albumin/Globulin Ratio 1.4 Vital Signs Temp Pulse Resp BP Pulse Ox 02/27/17 07:14 98.4 F 94 H 17 115/72 02/26/17 07:05 97.9 F 130 H 18 135/80 02/25/17 06:33 98 F 79 19 114/70 02/25/17 04:00 87 104/63 02/24/17 18:01 20 02/24/17 16:55 100 H 18 124/79 100 02/24/17 15:46 102 H 18 126/56 L 100 02/24/17 10:19 98.7 F 116 H 20 132/71 99 Temp Pulse Resp BP Pulse Ox 97.3 F L 81 20 104/65 100 02/28/17 06:55 02/28/17 06:55 02/28/17 06:55 02/28/17 06:55 02/24/17 16:55 XR was done WNL DSM 5 Symptoms Update: Shortly pt is a single 26 yo white female with psychiatric history of schizophrenia, prior psychiatric admissions-most recently 03/2015, in outpatient treatment with Dr. Roa, reportedly adherent with Invega 15 mg HS who was BIB police because she was found agitated and disorganized in the community. Patient also verbalized that she was suicidal and had thoughts of choking herself, pt also verbalized that she attempted to cut her wrists, no cuts, no scratched found. pt needed to be admitted for evaluation and stabilization of disorganized, psychotic, agitated, aggressive behavior, please see consultation note in ED. pt is not agitated, has residual symptoms of psychosis, hygiene is far from ideal, pt is messy, has a lot of papers on her night stand, pt said that she likes her current meds, asked trilafon to be increased, pt c/o mild muscle stiffness over her shoulders, will increase cogentin to three times a day. pt was seen by sales route driver helper, correction to my previous note pt has nondisplaced fracture of right 4th toe, ortho shoe orderdd. pt reported tolerating meds well, no side effects observed or reported, AIMS 0, no EPS. mental status examination: Patient presented to have improved personal hygiene, has a lot of stains on her clothing, intermittent eye contact, speech was overproductive but low volume, mood described "I'm depressed a little bit", thought process circumstantial and tangential, both content: Patient obviously paranoid, but wiht some improvement , appears to be internally preoccupied and restless, difficulties to stay focused, patient denied thoughts of harming herself or others, denied intent or plan, insight and judgment are limited, impulses are better controlled. Diagnostic Results: Paranoid Schizophrenia R/O Schizoaffective Disorder Developmental Disorder NOS/Neurocognitive Disorder NOS Plan: Milieu/structure/supportive therapy Medical consult appreciated, see medical team note for more detailed info SW consultation for discharge plan and social issues Med management Invega 15 mg daily, patient family brought this medication to the hospital, for psychotic symptoms Perphenazine 8mg 3 times a day scheduled, pt was doing well on this medication in the past Cogentin 1 mg at three times a day for EPS Family involvement, family wants to come for family meeting on Monday, pt has f/ u appt with her private psychiatrist on March 07. Follow up on labs Will monitor closely SW evaluation for d/c planning Pt was educated about risk/benefits and alternatives of medications, coping strategies (safety plan, suicide prevention), relapse prevention, importance of follow up with psychiatrist and therapist, stay away from drugs/alcohol/smoking Medication Change: Yes (cogentin increased ) Medical Record Reviewed: Yes Mental Status Examination - Cognitive Function Orientation: Person, Place, Situation - Mood Mood: Other (labile, unpredictable) - Affect Affect: Constricted - Formal Thought Process Formal Thought Process: Delusions, Paranoia, Loosening of associations - Suicidal Ideation Suicidal Ideation: No - Homicidal Ideation Homicidal Ideation: No Goal/Treatment Plan - Goal/Treatment Plan Need for Continued Stay: Remain at risks for inpatient hospitalization, Severe depression anxiety, Discharge may exacerbated symptoms, Severe functional impairment Estimated Date of D/C: 03/06/17
[2017-03-02] MEDS: PALIPERIDONE 6 MG PO SCH (21:00)
[2017-03-02] MEDS: PALIPERIDONE 9 MG PO SCH (21:00)
--- NOTE | 2017-03-03 13:41 | PCM.PYCHPN ---
Psychiatric Progress Note - Psychiatric Progress Note Patient seen today, length of contact: 30 minute Patient Chief Complaint: "I like my medications now, I feel better" Medical Problems: pt was seen by application support consultant see notes for more detailed info Diagnostic Results: 02/24/17 10:33 02/24/17 10:33 Lab Results 02/25/17 06:00: RPR Nonreactive 02/25/17 06:00: Free T4 1.34, TSH 3rd Generation 2.25 02/25/17 06:00: Fasting Glucose 92, Triglycerides 45, Cholesterol 171, LDL Cholesterol Direct 65, HDL Cholesterol 79 H 02/24/17 15:30: Urine Opiates Screen Negative, Urine Methadone Screen Negative, Ur Barbiturates Screen Negative, Ur Phencyclidine Scrn Negative, Ur Amphetamines Screen Negative, U Benzodiazepines Scrn Negative, U Oth Cocaine Metabols Negative, U Cannabinoids Screen Negative 02/24/17 15:30: Urine Color Yellow, Urine Appearance Clear, Urine pH 5.5, Ur Specific [place] <= 1.005, Urine Protein Negative, Urine Glucose (UA) Negative, Urine Ketones Negative, Urine Blood Negative, Urine Nitrate Negative, Urine Bilirubin Negative, Urine Urobilinogen 0.2, Ur Leukocyte Esterase Negative 02/24/17 10:33: Beta HCG, Quant < 2.39 02/24/17 10:33: WBC 8.6, RBC 4.28, Hgb 12.5, Hct 36.6, MCV 85.5, MCH 29.2, MCHC 34.2, RDW 12.6, Plt Count 230, MPV 11.2 H, Gran % 70.3 H, Lymph % (Auto) 22.1, [place] % (Auto) 7.1 H, Eos % (Auto) 0.2 L, Baso % (Auto) 0.3, Gran # 6.04, Lymph # 1.9, [place] # 0.6, Eos # 0.0, Baso # 0.03 02/24/17 10:33: Alcohol, Quantitative < 10 02/24/17 10:33: Salicylates < 1 L, Acetaminophen < 10.0 L 02/24/17 10:33: Sodium 139, Potassium 3.7, Chloride 105, Carbon Dioxide 23, Anion Gap 15, BUN 6 L, Creatinine 0.7, Est GFR ( Amer) > 60, Est GFR (Non -Af Amer) > 60, Random Glucose 134 H, Calcium 9.8, Total Bilirubin 0.4, AST 24, ALT 35, Alkaline Phosphatase 55, Total Protein 7.2, Albumin 4.2, Globulin 2.9, Albumin/Globulin Ratio 1.4 Vital Signs Temp Pulse Resp BP Pulse Ox 02/27/17 07:14 98.4 F 94 H 17 115/72 02/26/17 07:05 97.9 F 130 H 18 135/80 02/25/17 06:33 98 F 79 19 114/70 02/25/17 04:00 87 104/63 02/24/17 18:01 20 02/24/17 16:55 100 H 18 124/79 100 02/24/17 15:46 102 H 18 126/56 L 100 02/24/17 10:19 98.7 F 116 H 20 132/71 99 Temp Pulse Resp BP Pulse Ox 97.3 F L 81 20 104/65 100 02/28/17 06:55 02/28/17 06:55 02/28/17 06:55 02/28/17 06:55 02/24/17 16:55 XR of foot, fracture, see [facility] DSM 5 Symptoms Update: Shortly pt is a single 26 yo white female with psychiatric history of schizophrenia, prior psychiatric admissions-most recently 03/2015, in outpatient treatment with Dr. Roa, reportedly adherent with Invega 15 mg HS who was BIB police because she was found agitated and disorganized in the community. Patient also verbalized that she was suicidal and had thoughts of choking herself, pt also verbalized that she attempted to cut her wrists, no cuts, no scratched found. pt needed to be admitted for evaluation and stabilization of disorganized, psychotic, agitated, aggressive behavior, please see consultation note in ED. pt is not agitated, has residual symptoms of psychosis, hygiene is far from ideal, pt is messy, has a lot of papers on her night stand, pt said that she likes her current meds, pt reported that she feels better, pt said that her paranoia improved, pt also said that she tolerates meds well, has good appetite and sleep. pt was seen by application support consultant, correction to my previous note pt has nondisplaced fracture of right 4th toe, ortho shoe ordered. 03/03/17 spoke to pt's mother, d/c plan was discussed in details, mother said "[place] doing so much better, thank you for your help", family will come at 10am Monday for tentative discharge. pt reported tolerating meds well, no side effects observed or reported, AIMS 0, no EPS. mental status examination: Patient presented to have improved personal hygiene, has a lot of stains on her clothing, intermittent eye contact, speech was normal rate, but low volume, mood described "I'm better, thank you", thought process circumstantial and tangential, both content: Patient obviously paranoid, but with some improvement , appears to be internally preoccupied and restless, difficulties to stay focused, patient denied thoughts of harming herself or others, denied intent or plan, insight and judgment are limited, impulses are better controlled. Diagnostic Results: Paranoid Schizophrenia R/O Schizoaffective Disorder correction to my previous notes, pt does not have developmental disorder, was graduated from college in psychology major. Plan: Milieu/structure/supportive therapy Medical consult appreciated, see medical team note for more detailed info consultation for discharge plan and social issues Med management Invega 15 mg daily, patient family brought this medication to the hospital, for psychotic symptoms Perphenazine 8mg 3 times a day scheduled, pt was doing well on this medication in the past Cogentin 1 mg at three times a day for EPS all meds were called in to the [facility] pharmacy, pt will have two weeks supply and one refil Family involvement, family wants to come for family meeting on Monday 10ma, pt has f/u appt with her private psychiatrist on March 07. Tentative discharge on MondayMarch 06 Follow up on labs Will monitor closely evaluation for d/c planning Pt was educated about risk/benefits and alternatives of medications, coping strategies (safety plan, suicide prevention), relapse prevention, importance of follow up with psychiatrist and therapist, stay away from drugs/alcohol/smoking Medication Change: Yes (cogentin increased ) Medical Record Reviewed: Yes Mental Status Examination - Cognitive Function Orientation: Person, Place, Situation - Mood Mood: Other (labile, unpredictable) - Affect Affect: Constricted - Formal Thought Process Formal Thought Process: Delusions, Paranoia, Loosening of associations - Suicidal Ideation Suicidal Ideation: No - Homicidal Ideation Homicidal Ideation: No Goal/Treatment Plan - Goal/Treatment Plan Need for Continued Stay: Remain at risks for inpatient hospitalization, Severe depression anxiety, Discharge may exacerbated symptoms, Severe functional impairment Estimated Date of D/C: 03/06/17
[2017-03-03] MEDS: PALIPERIDONE 6 MG PO SCH (21:02)
[2017-03-03] MEDS: PALIPERIDONE 9 MG PO SCH (21:02)
--- NOTE | 2017-03-04 08:53 | PCM.PYCHPN ---
Psychiatric Progress Note - Psychiatric Progress Note Patient seen today, length of contact: 25 minute Patient Chief Complaint: "better, still a little paranoid" Problems Identified/Issues Discussed: I met with patient at bedside this morning. She remains alert and oriented to month, year, circumstances and location. Grooming is adequate. Patient indicates that she is feeling better and "sleeping okay". As usual she denies any hallucinations. She feels her paranoia about her father and uncle are improving "a little bit". Responses are coherent and goal directed. Staff notes indicate that patient has been in better control with less outbursts over the week. She is calm during our conversation and doesn't demonstrate any bizarre behaviors or delusions. Organization and focus are improving but patient still appears preoccupied and oddly related. Patient denied thoughts of harming herself or others, denied intent or plan Patient denies any side effects from the medications and feels they are beneficial. Staff notes indicate that patient has been pleasant and cooperative. There were no behavioral issues overnight. Diagnostic Results: Paranoid Schizophrenia R/O Schizoaffective Disorder *Correction to previous notes, pt does not have developmental disorder, graduated from college in psychology major. Medication Change: No ( ) Medical Record Reviewed: Yes Mental Status Examination - Cognitive Function Orientation: Person, Place, Situation Attention: WNL - Mood Mood: Other ( "better, still a little paranoid") - Affect Affect: Constricted - Speech Speech: Appropriate (childlike) - Formal Thought Process Formal Thought Process: Delusions, Paranoia, Loosening of associations - Suicidal Ideation Suicidal Ideation: No - Homicidal Ideation Homicidal Ideation: No Goal/Treatment Plan - Goal/Treatment Plan Need for Continued Stay: Remain at risks for inpatient hospitalization, Severe depression anxiety, Discharge may exacerbated symptoms, Severe functional impairment Progress Toward Problem(s) and Goals/Treatment Plan: * group, milieu and supportive tx * Vitals reviewed and noted below: Selected Entries 03/01/17 03/02/17 03/02/17 15:40 06:34 15:54 Temperature 97.7 F Pulse Rate 84 65 80 Respiratory 20 Rate Blood Pressure 106/60 96/55 L 107/64 03/03/17 03/03/17 06:50 16:15 Temperature 97.9 F 97.6 F Pulse Rate 64 76 Respiratory 20 Rate Blood Pressure 104/56 L 99/58 L Estimated Date of D/C: 03/06/17
[2017-03-04] MEDS: PALIPERIDONE 9 MG PO SCH (21:02)
[2017-03-04] MEDS: PALIPERIDONE 6 MG PO SCH (21:02)
--- NOTE | 2017-03-05 08:45 | PCM.PYCHPN ---
Psychiatric Progress Note - Psychiatric Progress Note Patient seen today, length of contact: 25 minute Patient Chief Complaint: "better, still a little paranoid" Problems Identified/Issues Discussed: I met with patient at bedside this morning. She remains oriented to month, year , circumstances and location. Appears more unkempt and disengaged today. Patient continues to report improvement and gives me a thumbs up. As usual she denies any hallucinations though still has continued paranoia about her father and uncle. Responses are brief but fairly coherent. Staff notes indicate that patient has been in better control with less outbursts over the week. She is calm during our conversation and doesn't demonstrate any bizarre behaviors or delusions. Organization and focus are improving but patient still appears preoccupied and oddly related. Patient denied thoughts of harming herself or others, denied intent or plan Patient denies any side effects from the medications and feels they are beneficial. Staff notes indicate that patient has been pleasant and cooperative. Visible on the unit and interacts with select patients. A little anxious at time but generally appropriate. There were no major behavioral issues over the weekend thus far. Diagnostic Results: Paranoid Schizophrenia R/O Schizoaffective Disorder *Correction to previous notes, pt does not have developmental disorder, graduated from college in psychology major. Medication Change: No ( ) Medical Record Reviewed: Yes Mental Status Examination - Cognitive Function Orientation: Person, Place, Situation Attention: WNL - Mood Mood: Other ( "better, still a little paranoid") - Affect Affect: Constricted - Speech Speech: Appropriate (childlike) - Formal Thought Process Formal Thought Process: Delusions, Paranoia, Loosening of associations - Suicidal Ideation Suicidal Ideation: No - Homicidal Ideation Homicidal Ideation: No Goal/Treatment Plan - Goal/Treatment Plan Need for Continued Stay: Remain at risks for inpatient hospitalization, Severe depression anxiety, Discharge may exacerbated symptoms, Severe functional impairment Progress Toward Problem(s) and Goals/Treatment Plan: * group, milieu and supportive tx * Vitals reviewed and noted below: Selected Entries 03/03/17 03/04/17 03/04/17 16:15 06:45 16:00 Temperature 97.6 F 98.0 F Pulse Rate 76 61 87 Respiratory 16 Rate Blood Pressure 99/58 L 88/47 L 110/56 L O2 Sat by Pulse 95 Oximetry ] Estimated Date of D/C: 03/06/17
[2017-03-05] MEDS: PALIPERIDONE 6 MG PO SCH (21:05)
[2017-03-05] MEDS: PALIPERIDONE 9 MG PO SCH (21:05)
--- NOTE | 2017-03-06 12:40 | PCM.BM ---
<Susan Chong - Last Filed: 03/06/17 12:37> Treatment Plan Problems - Problems identified on initial assessmt agitated behavior Date Initiated: 02/24/17 Time Initiated: 18:08 Date resolved: 03/06/17 Assessment reference: HP, NA Status: Active alteration in emotional status Date Initiated: 02/24/17 Time Initiated: 18:09 Assessment reference: HP, NA Status: Active Comment: UNDECISIVE AT TIMES delusions Date Initiated: 02/24/17 Time Initiated: 18:10 Assessment reference: HP, NA Status: Active thought process alteration Date Initiated: 02/24/17 Time Initiated: 18:10 Assessment reference: HP, NA Treatment assets and liabiliti Patient Assests: educated, self-reliant, ADL independent, physically healthy, strong mini Patient Liabilities: dietary restrictions - Milieu Protocol Maintain good personal hygiene: daily Encourage regular showers, daily Remind patient to perform daily oral care, daily Assist patient to perform ADL's Maintain personal safety: daily Educate patient to report safety concerns to staff, daily Monitor environment for contraband/sharps Medication safety: Monitor for expected outcome, potential side effects: daily, Assess barriers to learning: daily, Assess readiness for medication education: daily Milieu Narrative: * group, milieu and supportive tx * * Vitals reviewed and noted below: Selected Entries 03/03/17 03/04/17 03/04/17 16:15 06:45 16:00 Temperature 97.6 F 98.0 F Pulse Rate 76 61 87 Respiratory 16 Rate Blood Pressure 99/58 L 88/47 L 110/56 L O2 Sat by Pulse 95 Oximetry ] Family Contact Family involvement: Family/SO is involved Family contact: Patient agrees to contact Family contact name: Ana M Allen(mother) Lamont Allen(father) Family contacted how many times per week?: 2 Discharge/Continuing Care - Education Needs Education Needs: Patient Medication, Patient Diagnosis/Disease Process, Patient Coping Skills, Patient Anger Management skills, Patient Community resources, Patient Activities of Daily Living, Patient Personal Hygiene/Grooming - Discharge Discharge Criteria: Tolerates medication w/o severe side effects, Free of Suicidal thoughts, Free of paranoid thoughts, Free of agitation, Normal sleep pattern, Ability to care for self Discharge to:: Home - Treatment Team Participation Patient/Family/SO Statement: * group, milieu and supportive tx * * Vitals reviewed and noted below: Selected Entries 03/03/17 03/04/17 03/04/17 16:15 06:45 16:00 Temperature 97.6 F 98.0 F Pulse Rate 76 61 87 Respiratory 16 Rate Blood Pressure 99/58 L 88/47 L 110/56 L O2 Sat by Pulse 95 Oximetry ] Treatment Plan Review - Problem agitated behavior Time Initiated: 18:08 alteration in emotional status Time Initiated: 18:09 delusions Time Initiated: 18:10 thought process alteration Time Initiated: 18:10 <Monica Ahn - Last Filed: 03/07/17 15:12> - Diagnosis (1) Schizophrenia Status: Acute Interventions: 03/07/17 15:11 met with pt's family discussed Invega branden IM shots pt is improving meds compliant no agitation, no aggression d/c plan was discussed, DTP
--- NOTE | 2017-03-06 13:30 | PCM.PYCHPN ---
<Echo Mckeon - Last Filed: 03/06/17 13:38> Psychiatric Progress Note - Psychiatric Progress Note Patient seen today, length of contact: 25 minute Patient Chief Complaint: " I am doing better but I am still paranoid of my one uncle" Problems Identified/Issues Discussed: Patient was seen in treatment team. She indicates she is mostly "how I am all the time" and that her symptoms have improved with less hallucinations. She is concrete in conversation and has thought blocking. She is attending groups. Her memory both short and middle or intermediate school principal are impaired and she is scattered in conversation. This may be her baseline. Nurses notes and records were reviewed. Medication Change: No ( ) Medical Record Reviewed: Yes Mental Status Examination - Cognitive Function Orientation: Person, Place, Situation Attention: WNL - Mood Mood: Other ( "better, still a little paranoid") - Affect Affect: Constricted - Speech Speech: Appropriate (childlike) - Formal Thought Process Formal Thought Process: Delusions, Paranoia, Loosening of associations - Suicidal Ideation Suicidal Ideation: No - Homicidal Ideation Homicidal Ideation: No Goal/Treatment Plan - Goal/Treatment Plan Need for Continued Stay: Remain at risks for inpatient hospitalization, Severe depression anxiety, Discharge may exacerbated symptoms, Severe functional impairment Estimated Date of D/C: 03/06/17 <Monica Ahn - Last Filed: 03/10/17 17:29> Psychiatric Progress Note - Psychiatric Progress Note DSM 5 Symptoms Update: Addendum to RN SHIFT MGR note: Shortly pt is a single 26 yo white female with psychiatric history of schizophrenia, prior psychiatric admissions-most recently 03/2015, in outpatient treatment with Dr. Roa, reportedly adherent with Invega 15 mg HS who was BIB police because she was found agitated and disorganized in the community. Patient also verbalized that she was suicidal and had thoughts of choking herself, pt also verbalized that she attempted to cut her wrists, no cuts, no scratched found. pt needed to be admitted for evaluation and stabilization of disorganized, psychotic, agitated, aggressive behavior, please see consultation note in ED. pt was scheduled for d/c 03/06/17, but pt's family said pt was not doing well. decision was made to schedule family meeting on 03/07/17. pt had residual symptoms of paranoia, was restless but did not want to have any other meds but what she is currently on. pt was seen by stonecutter assistant, correction to my previous note pt has nondisplaced fracture of right 4th toe, ortho shoe ordered. as per staff pt reported tolerating meds well, no side effects observed or reported, AIMS 0, no EPS. mental status examination: as per RN SHIFT MGR: Patient presented to have improved personal hygiene, has a lot of stains on her clothing, intermittent eye contact, speech was normal rate, but low volume, mood described "I'm better, thank God", thought process circumstantial and tangential, thought content: Patient obviously paranoid, but with some improvement, appears to be internally preoccupied and restless, difficulties to stay focused, patient denied thoughts of harming herself or others, denied intent or plan, insight and judgment are limited, impulses are better controlled. Diagnostic Results: Paranoid Schizophrenia R/O Schizoaffective Disorder Plan: Milieu/structure/supportive therapy Medical consult appreciated, see medical team note for more detailed info SW consultation for discharge plan and social issues Med management Invega 15 mg daily, patient family brought this medication to the hospital, for psychotic symptoms Perphenazine 8mg 3 times a day scheduled, pt was doing well on this medication in the past Cogentin 1 mg at three times a day for EPS family meeting scheduled on 03/07/17 Will monitor closely evaluation for d/c planning Pt was educated about risk/benefits and alternatives of medications, coping strategies (safety plan, suicide prevention), relapse prevention, importance of follow up with psychiatrist and therapist, stay away from drugs/alcohol/smoking Goal/Treatment Plan - Goal/Treatment Plan Need for Continued Stay: Remain at risks for inpatient hospitalization, Severe depression anxiety, Discharge may exacerbated symptoms, Severe functional impairment Estimated Date of D/C: 03/09/17
[2017-03-06] MEDS: PALIPERIDONE 3 MG PO SCH (21:06)
[2017-03-06] MEDS: PALIPERIDONE 9 MG PO SCH (21:07)
--- NOTE | 2017-03-07 15:19 | PCM.PYCHPN ---
Psychiatric Progress Note - Psychiatric Progress Note Patient seen today, length of contact: 30 min Patient Chief Complaint: "I am feeling better" Medical Problems: pt was seen by adjuster leader see notes for more detailed info Diagnostic Results: 02/24/17 10:33 02/24/17 10:33 Lab Results 02/25/17 06:00: RPR Nonreactive 02/25/17 06:00: Free T4 1.34, TSH 3rd Generation 2.25 02/25/17 06:00: Fasting Glucose 92, Triglycerides 45, Cholesterol 171, LDL Cholesterol Direct 65, HDL Cholesterol 79 H 02/24/17 15:30: Urine Opiates Screen Negative, Urine Methadone Screen Negative, Ur Barbiturates Screen Negative, Ur Phencyclidine Scrn Negative, Ur Amphetamines Screen Negative, U Benzodiazepines Scrn Negative, U Oth Cocaine Metabols Negative, U Cannabinoids Screen Negative 02/24/17 15:30: Urine Color Yellow, Urine Appearance Clear, Urine pH 5.5, Ur Specific Perley <= 1.005, Urine Protein Negative, Urine Glucose (UA) Negative, Urine Ketones Negative, Urine Blood Negative, Urine Nitrate Negative, Urine Bilirubin Negative, Urine Urobilinogen 0.2, Ur Leukocyte Esterase Negative 02/24/17 10:33: Beta HCG, Quant < 2.39 02/24/17 10:33: WBC 8.6, RBC 4.28, Hgb 12.5, Hct 36.6, MCV 85.5, MCH 29.2, MCHC 34.2, RDW 12.6, Plt Count 230, MPV 11.2 H, Gran % 70.3 H, Lymph % (Auto) 22.1, Wirt % (Auto) 7.1 H, Eos % (Auto) 0.2 L, Baso % (Auto) 0.3, Gran # 6.04, Lymph # 1.9, Wirt # 0.6, Eos # 0.0, Baso # 0.03 02/24/17 10:33: Alcohol, Quantitative < 10 02/24/17 10:33: Salicylates < 1 L, Acetaminophen < 10.0 L 02/24/17 10:33: Sodium 139, Potassium 3.7, Chloride 105, Carbon Dioxide 23, Anion Gap 15, BUN 6 L, Creatinine 0.7, Est GFR ( Amer) > 60, Est GFR (Non -Af Amer) > 60, Random Glucose 134 H, Calcium 9.8, Total Bilirubin 0.4, AST 24, ALT 35, Alkaline Phosphatase 55, Total Protein 7.2, Albumin 4.2, Globulin 2.9, Albumin/Globulin Ratio 1.4 Vital Signs Temp Pulse Resp BP Pulse Ox 02/27/17 07:14 98.4 F 94 H 17 115/72 02/26/17 07:05 97.9 F 130 H 18 135/80 02/25/17 06:33 98 F 79 19 114/70 02/25/17 04:00 87 104/63 02/24/17 18:01 20 02/24/17 16:55 100 H 18 124/79 100 02/24/17 15:46 102 H 18 126/56 L 100 02/24/17 10:19 98.7 F 116 H 20 132/71 99 Temp Pulse Resp BP Pulse Ox 97.3 F L 81 20 104/65 100 02/28/17 06:55 02/28/17 06:55 02/28/17 06:55 02/28/17 06:55 02/24/17 16:55 XR of foot, fracture, [facility] Temp Pulse Resp BP Pulse Ox 97.8 F 97 H 19 104/61 95 03/07/17 07:20 03/07/17 07:20 03/07/17 07:20 03/07/17 07:20 03/04/17 06:45 DSM 5 Symptoms Update: Shortly pt is a single 26 yo white female with psychiatric history of schizophrenia, prior psychiatric admissions-most recently 03/2015, in outpatient treatment with Dr. Roa, reportedly adherent with Invega 15 mg HS who was BIB police because she was found agitated and disorganized in the community. Patient also verbalized that she was suicidal and had thoughts of choking herself, pt also verbalized that she attempted to cut her wrists, no cuts, no scratched found. pt needed to be admitted for evaluation and stabilization of disorganized, psychotic, agitated, aggressive behavior, please see consultation note in ED. pt was scheduled for d/c yesterday but as per family pt was not doing well. this filing writer had a meeting with pt's family today, pt's mother and father came over, family seems to be involved and overprotecting pt. pt presented to be guarded and mildly paranoid, as per family "she did not talk to us over the weekend, it is not her", pt seems to be anxious and mildly disorganized. pt said she feels restless, most likely due to akathesia, but at the same time pt does not want to take any meds for that. pt was seen by adjuster leader, correction to my previous note pt has nondisplaced fracture of right 4th toe, ortho shoe ordered. pt reported tolerating meds well, no side effects observed or reported, AIMS 0, no EPS. mental status examination: Patient presented to have improved personal hygiene, has a lot of stains on her clothing, intermittent eye contact, speech was normal rate, but low volume, mood described "I'm better, thank you", thought process circumstantial and tangential, both content: Patient obviously paranoid, but with some improvement , appears to be internally preoccupied and restless, difficulties to stay focused, patient denied thoughts of harming herself or others, denied intent or plan, insight and judgment are limited, impulses are better controlled. Diagnostic Results: Paranoid Schizophrenia R/O Schizoaffective Disorder Plan: Milieu/structure/supportive therapy Medical consult appreciated, see medical team note for more detailed info consultation for discharge plan and social issues Med management Invega 15 mg daily, patient family brought this medication to the hospital, for psychotic symptoms Perphenazine 8mg 3 times a day scheduled, pt was doing well on this medication in the past Cogentin 1 mg at three times a day for EPS all meds were called in to the [facility], pt will have two weeks supply and one refil Follow up on labs Will monitor closely evaluation for d/c planning Pt was educated about risk/benefits and alternatives of medications, coping strategies (safety plan, suicide prevention), relapse prevention, importance of follow up with psychiatrist and therapist, stay away from drugs/alcohol/smoking Medication Change: No ( ) Medical Record Reviewed: Yes Mental Status Examination - Cognitive Function Orientation: Person, Place, Situation Attention: WNL - Mood Mood: Other ( "better, still a little paranoid") - Affect Affect: Constricted - Speech Speech: Appropriate (childlike) - Formal Thought Process Formal Thought Process: Delusions, Paranoia, Loosening of associations - Suicidal Ideation Suicidal Ideation: No - Homicidal Ideation Homicidal Ideation: No Goal/Treatment Plan - Goal/Treatment Plan Need for Continued Stay: Remain at risks for inpatient hospitalization, Severe depression anxiety, Discharge may exacerbated symptoms, Severe functional impairment Estimated Date of D/C: 03/09/17 (family said pt was not ready for d/c)
[2017-03-07] MEDS: PALIPERIDONE 3 MG PO SCH (21:20)
[2017-03-07] MEDS: PALIPERIDONE 9 MG PO SCH (21:20)
[2017-03-08 06:56] VITALS: RESP 20
[2017-03-08 07:25] LABS: BASO # 0.03 K/mm3 (0.0-2.0); BASO % 0.4 % (0.0-3.0); EOS # 0.2 (0.0-0.7); EOS % 2.7 % (1.5-5.0); GRAN # 3.6 (1.4-6.5); GRAN % 52.1 % (50.0-68.0); HEMATOCRIT 36.5 % (36.0-48.0); LYMPH # 2.6 (1.2-3.4); LYMPH % 36.9 % (22.0-35.0); MEAN CELL VOLUME 85.9 fl (80.0-105.0); MEAN CORPUSCULAR HEMOGLOBIN 28.5 pg (25.0-35.0); MEAN CORPUSCULAR HGB CONC 33.2 g/dl (31.0-37.0); MEAN PLATELET VOLUME 10.2 fl (7.0-11.0); MONO # 0.6 (0.1-0.6); MONO % 7.9 % (1.0-6.0); RED CELL DISTRIBUTION WIDTH 12.2 % (11.5-14.5); WHITE BLOOD COUNT 6.9 10^3/ul (4.5-11.0)
--- NOTE | 2017-03-08 15:27 | PCM.PYCHPN ---
Psychiatric Progress Note - Psychiatric Progress Note Patient seen today, length of contact: 30 min Patient Chief Complaint: "I am feeling better thank God" Medical Problems: pt was seen by metal numerical tool programmer see notes for more detailed info Diagnostic Results: 02/24/17 10:33 02/24/17 10:33 Lab Results 02/25/17 06:00: RPR Nonreactive 02/25/17 06:00: Free T4 1.34, TSH 3rd Generation 2.25 02/25/17 06:00: Fasting Glucose 92, Triglycerides 45, Cholesterol 171, LDL Cholesterol Direct 65, HDL Cholesterol 79 H 02/24/17 15:30: Urine Opiates Screen Negative, Urine Methadone Screen Negative, Ur Barbiturates Screen Negative, Ur Phencyclidine Scrn Negative, Ur Amphetamines Screen Negative, U Benzodiazepines Scrn Negative, U Oth Cocaine Metabols Negative, U Cannabinoids Screen Negative 02/24/17 15:30: Urine Color Yellow, Urine Appearance Clear, Urine pH 5.5, Ur Specific [place] <= 1.005, Urine Protein Negative, Urine Glucose (UA) Negative, Urine Ketones Negative, Urine Blood Negative, Urine Nitrate Negative, Urine Bilirubin Negative, Urine Urobilinogen 0.2, Ur Leukocyte Esterase Negative 02/24/17 10:33: Beta HCG, Quant < 2.39 02/24/17 10:33: WBC 8.6, RBC 4.28, Hgb 12.5, Hct 36.6, MCV 85.5, MCH 29.2, MCHC 34.2, RDW 12.6, Plt Count 230, MPV 11.2 H, Gran % 70.3 H, Lymph % (Auto) 22.1, [place] % (Auto) 7.1 H, Eos % (Auto) 0.2 L, Baso % (Auto) 0.3, Gran # 6.04, Lymph # 1.9, [place] # 0.6, Eos # 0.0, Baso # 0.03 02/24/17 10:33: Alcohol, Quantitative < 10 02/24/17 10:33: Salicylates < 1 L, Acetaminophen < 10.0 L 02/24/17 10:33: Sodium 139, Potassium 3.7, Chloride 105, Carbon Dioxide 23, Anion Gap 15, BUN 6 L, Creatinine 0.7, Est GFR ( Amer) > 60, Est GFR (Non -Af Amer) > 60, Random Glucose 134 H, Calcium 9.8, Total Bilirubin 0.4, AST 24, ALT 35, Alkaline Phosphatase 55, Total Protein 7.2, Albumin 4.2, Globulin 2.9, Albumin/Globulin Ratio 1.4 Vital Signs Temp Pulse Resp BP Pulse Ox 02/27/17 07:14 98.4 F 94 H 17 115/72 02/26/17 07:05 97.9 F 130 H 18 135/80 02/25/17 06:33 98 F 79 19 114/70 02/25/17 04:00 87 104/63 02/24/17 18:01 20 02/24/17 16:55 100 H 18 124/79 100 02/24/17 15:46 102 H 18 126/56 L 100 02/24/17 10:19 98.7 F 116 H 20 132/71 99 Temp Pulse Resp BP Pulse Ox 97.3 F L 81 20 104/65 100 02/28/17 06:55 02/28/17 06:55 02/28/17 06:55 02/28/17 06:55 02/24/17 16:55 XR of foot, fracture, [facility] Temp Pulse Resp BP Pulse Ox 97.8 F 97 H 19 104/61 95 03/07/17 07:20 03/07/17 07:20 03/07/17 07:20 03/07/17 07:20 03/04/17 06:45 Laboratory Tests 02/24/17 02/24/17 02/24/17 10:33 10:33 10:33 WBC RBC Hgb Hct MCV MCH MCHC RDW Plt Count MPV Gran % Lymph % (Auto) [place] % (Auto) Eos % (Auto) Baso % (Auto) Gran # Lymph # [place] # Eos # Baso # Sodium 139 Potassium 3.7 Chloride 105 Carbon Dioxide 23 Anion Gap 15 BUN 6 L Creatinine 0.7 Est GFR ( Amer) > 60 Est GFR (Non-Af Amer) > 60 Random Glucose 134 H Fasting Glucose Calcium 9.8 Total Bilirubin 0.4 AST 24 ALT 35 Alkaline Phosphatase 55 Total Protein 7.2 Albumin 4.2 Globulin 2.9 Albumin/Globulin Ratio 1.4 Triglycerides Cholesterol LDL Cholesterol Direct HDL Cholesterol Free T4 TSH 3rd Generation Beta HCG, Quant Urine Color Urine Appearance Urine pH Ur Specific [place] Urine Protein Urine Glucose (UA) Urine Ketones Urine Blood Urine Nitrate Urine Bilirubin Urine Urobilinogen Ur Leukocyte Esterase Salicylates < 1 L Urine Opiates Screen Urine Methadone Screen Acetaminophen < 10.0 L Ur Barbiturates Screen Ur Phencyclidine Scrn Ur Amphetamines Screen U Benzodiazepines Scrn U Oth Cocaine Metabols U Cannabinoids Screen Alcohol, Quantitative < 10 RPR 02/24/17 02/24/17 02/24/17 10:33 10:33 15:30 WBC 8.6 RBC 4.28 Hgb 12.5 Hct 36.6 MCV 85.5 MCH 29.2 MCHC 34.2 RDW 12.6 Plt Count 230 MPV 11.2 H Gran % 70.3 H Lymph % (Auto) 22.1 [place] % (Auto) 7.1 H Eos % (Auto) 0.2 L Baso % (Auto) 0.3 Gran # 6.04 Lymph # 1.9 [place] # 0.6 Eos # 0.0 Baso # 0.03 Sodium Potassium Chloride Carbon Dioxide Anion Gap BUN Creatinine Est GFR ( Amer) Est GFR (Non-Af Amer) Random Glucose Fasting Glucose Calcium Total Bilirubin AST ALT Alkaline Phosphatase Total Protein Albumin Globulin Albumin/Globulin Ratio Triglycerides Cholesterol LDL Cholesterol Direct HDL Cholesterol Free T4 TSH 3rd Generation Beta HCG, Quant < 2.39 Urine Color Yellow Urine Appearance Clear Urine pH 5.5 Ur Specific [place] <= 1.005 Urine Protein Negative Urine Glucose (UA) Negative Urine Ketones Negative Urine Blood Negative Urine Nitrate Negative Urine Bilirubin Negative Urine Urobilinogen 0.2 Ur Leukocyte Esterase Negative Salicylates Urine Opiates Screen Urine Methadone Screen Acetaminophen Ur Barbiturates Screen Ur Phencyclidine Scrn Ur Amphetamines Screen U Benzodiazepines Scrn U Oth Cocaine Metabols U Cannabinoids Screen Alcohol, Quantitative RPR 02/24/17 02/25/17 02/25/17 15:30 06:00 06:00 WBC RBC Hgb Hct MCV MCH MCHC RDW Plt Count MPV Gran % Lymph % (Auto) [place] % (Auto) Eos % (Auto) Baso % (Auto) Gran # Lymph # [place] # Eos # Baso # Sodium Potassium Chloride Carbon Dioxide Anion Gap BUN Creatinine Est GFR ( Amer) Est GFR (Non-Af Amer) Random Glucose Fasting Glucose 92 Calcium Total Bilirubin AST ALT Alkaline Phosphatase Total Protein Albumin Globulin Albumin/Globulin Ratio Triglycerides 45 Cholesterol 171 LDL Cholesterol Direct 65 HDL Cholesterol 79 H Free T4 1.34 TSH 3rd Generation 2.25 Beta HCG, Quant Urine Color Urine Appearance Urine pH Ur Specific [place] Urine Protein Urine Glucose (UA) Urine Ketones Urine Blood Urine Nitrate Urine Bilirubin Urine Urobilinogen Ur Leukocyte Esterase Salicylates Urine Opiates Screen Negative Urine Methadone Screen Negative Acetaminophen Ur Barbiturates Screen Negative Ur Phencyclidine Scrn Negative Ur Amphetamines Screen Negative U Benzodiazepines Scrn Negative U Oth Cocaine Metabols Negative U Cannabinoids Screen Negative Alcohol, Quantitative RPR 02/25/17 03/08/17 06:00 07:00 WBC 6.9 RBC 4.25 Hgb 12.1 Hct 36.5 MCV 85.9 MCH 28.5 MCHC 33.2 RDW 12.2 Plt Count 334 MPV 10.2 Gran % 52.1 Lymph % (Auto) 36.9 H [place] % (Auto) 7.9 H Eos % (Auto) 2.7 Baso % (Auto) 0.4 Gran # 3.60 Lymph # 2.6 [place] # 0.6 Eos # 0.2 Baso # 0.03 Sodium Potassium Chloride Carbon Dioxide Anion Gap BUN Creatinine Est GFR ( Amer) Est GFR (Non-Af Amer) Random Glucose Fasting Glucose Calcium Total Bilirubin AST ALT Alkaline Phosphatase Total Protein Albumin Globulin Albumin/Globulin Ratio Triglycerides Cholesterol LDL Cholesterol Direct HDL Cholesterol Free T4 TSH 3rd Generation Beta HCG, Quant Urine Color Urine Appearance Urine pH Ur Specific [place] Urine Protein Urine Glucose (UA) Urine Ketones Urine Blood Urine Nitrate Urine Bilirubin Urine Urobilinogen Ur Leukocyte Esterase Salicylates Urine Opiates Screen Urine Methadone Screen Acetaminophen Ur Barbiturates Screen Ur Phencyclidine Scrn Ur Amphetamines Screen U Benzodiazepines Scrn U Oth Cocaine Metabols U Cannabinoids Screen Alcohol, Quantitative RPR Nonreactive Temp Pulse Resp BP Pulse Ox 97.6 F 62 20 109/58 L 95 03/08/17 06:55 03/08/17 06:55 03/08/17 06:55 03/08/17 06:55 03/04/17 06:45 DSM 5 Symptoms Update: Shortly pt is a single 26 yo white female with psychiatric history of schizophrenia, prior psychiatric admissions-most recently 03/2015, in outpatient treatment with Dr. Roa, reportedly adherent with Invega 15 mg HS who was BIB police because she was found agitated and disorganized in the community. Patient also verbalized that she was suicidal and had thoughts of choking herself, pt also verbalized that she attempted to cut her wrists, no cuts, no scratched found. pt needed to be admitted for evaluation and stabilization of disorganized, psychotic, agitated, aggressive behavior, please see consultation note in ED. family meeting took place 03/07/17, as per family pt was not doing well over the weekend that is why this play writer held the d/c for this pt. pt was seen today at am, pt looked better, more organized with her thoughts. pt was much calmer, no restlessness. [facility] pharmacy was called, they will deliver meds prior tomorrow's discharge. pt reported tolerating meds well, no side effects observed or reported, AIMS 0, no EPS. mental status examination: Patient presented to have improved personal hygiene, good eye contact, speech was normal rate, but low volume, mood described "I'm better, thank God", thought process circumstantial and tangential, both content: Patient is less paranoid, was able to stay focused, concentration improved. patient denied thoughts of harming herself or others, denied intent or plan, insight and judgment improved, impulses are better controlled. Diagnostic Results: Paranoid Schizophrenia R/O Schizoaffective Disorder Plan: Milieu/structure/supportive therapy Medical consult appreciated, see medical team note for more detailed info consultation for discharge plan and social issues Med management Invega 15 mg daily, patient family brought this medication to the hospital, for psychotic symptoms Perphenazine 8mg 3 times a day scheduled, pt was doing well on this medication in the past Cogentin 1 mg at three times a day for EPS all meds were called in to the [facility] pharmacy, pt will have two weeks supply and one refill tentative discharge tomorrow Follow up on labs Will monitor closely evaluation for d/c planning Pt was educated about risk/benefits and alternatives of medications, coping strategies (safety plan, suicide prevention), relapse prevention, importance of follow up with psychiatrist and therapist, stay away from drugs/alcohol/smoking Medication Change: No ( ) Medical Record Reviewed: Yes Mental Status Examination - Cognitive Function Orientation: Person, Place, Situation Attention: WNL - Mood Mood: Other ( "better, still a little paranoid") - Affect Affect: Constricted - Speech Speech: Appropriate (childlike) - Formal Thought Process Formal Thought Process: Delusions, Paranoia, Loosening of associations - Suicidal Ideation Suicidal Ideation: No - Homicidal Ideation Homicidal Ideation: No Goal/Treatment Plan - Goal/Treatment Plan Need for Continued Stay: Remain at risks for inpatient hospitalization, Severe depression anxiety, Discharge may exacerbated symptoms, Severe functional impairment Estimated Date of D/C: 03/09/17 (family said pt was not ready for d/c)
[2017-03-08] MEDS: PALIPERIDONE 9 MG PO SCH (21:05)
[2017-03-08] MEDS: PALIPERIDONE 3 MG PO SCH (21:05)
[2017-03-09 06:07] VITALS: BP 111/72; PULSE 96; TEMP 97.8; O2SAT 100
--- NOTE | 2017-03-09 13:53 | PCM.PYCHDC ---
Mental Status Examination - Mental Status Examination Orientation: Person, Place, Situation, Time Memory: Intact Mood: Neutral Affect: Broad (and mood congruent) Speech: Appropriate Attention: WNL (much improved) Concentration: WNL Association: Loose (but with much improvement) Fund of Knowledge: WNL (pt is intelligent, college degree in psychology) Formal Thought Process: Paranoia (residual symptoms of paranoia, but overall much improved) Description of patient's judgement and insight: Pt has improved insight into mental and medical illness, pt was compliant with medications and unit rules and regulations, pt was going to groups, was calm, cooperative, socially appropriate, no behavioral incidents, no agitation, no aggression. Psychotic Thoughts and Behaviors: Pt denied v/a/t hallucinations, denied paranoid ideations, pt does not appear to be psychotic, and thought process is goal directed. Suicidal Ideation: No Current Homicidal Ideation?: No Plan: pt adamantly denied thoughts of harming self or others denied intent or plan. Discharge Summary - Discharge Note Reason for Hospitalization: psychosis, agitation, paranoia Psychiatric History (includes Medical, Family, Personal Hx): pt has long h/o schizophrenia Laboratory Data: 03/08/17 07:00 02/24/17 10:33 Lab Results 03/08/17 07:00: WBC 6.9, RBC 4.25, Hgb 12.1, Hct 36.5, MCV 85.9, MCH 28.5, MCHC 33.2, RDW 12.2, Plt Count 334, MPV 10.2, Gran % 52.1, Lymph % (Auto) 36.9 H, [place] % (Auto) 7.9 H, Eos % (Auto) 2.7, Baso % (Auto) 0.4, Gran # 3.60, Lymph # 2.6, [place] # 0.6, Eos # 0.2, Baso # 0.03 02/25/17 06:00: RPR Nonreactive 02/25/17 06:00: Free T4 1.34, TSH 3rd Generation 2.25 02/25/17 06:00: Fasting Glucose 92, Triglycerides 45, Cholesterol 171, LDL Cholesterol Direct 65, HDL Cholesterol 79 H 02/24/17 15:30: Urine Opiates Screen Negative, Urine Methadone Screen Negative, Ur Barbiturates Screen Negative, Ur Phencyclidine Scrn Negative, Ur Amphetamines Screen Negative, U Benzodiazepines Scrn Negative, U Oth Cocaine Metabols Negative, U Cannabinoids Screen Negative 02/24/17 15:30: Urine Color Yellow, Urine Appearance Clear, Urine pH 5.5, Ur Specific [place] <= 1.005, Urine Protein Negative, Urine Glucose (UA) Negative, Urine Ketones Negative, Urine Blood Negative, Urine Nitrate Negative, Urine Bilirubin Negative, Urine Urobilinogen 0.2, Ur Leukocyte Esterase Negative 02/24/17 10:33: Beta HCG, Quant < 2.39 02/24/17 10:33: WBC 8.6, RBC 4.28, Hgb 12.5, Hct 36.6, MCV 85.5, MCH 29.2, MCHC 34.2, RDW 12.6, Plt Count 230, MPV 11.2 H, Gran % 70.3 H, Lymph % (Auto) 22.1, [place] % (Auto) 7.1 H, Eos % (Auto) 0.2 L, Baso % (Auto) 0.3, Gran # 6.04, Lymph # 1.9, [place] # 0.6, Eos # 0.0, Baso # 0.03 02/24/17 10:33: Alcohol, Quantitative < 10 02/24/17 10:33: Salicylates < 1 L, Acetaminophen < 10.0 L 02/24/17 10:33: Sodium 139, Potassium 3.7, Chloride 105, Carbon Dioxide 23, Anion Gap 15, BUN 6 L, Creatinine 0.7, Est GFR ( Amer) > 60, Est GFR (Non -Af Amer) > 60, Random Glucose 134 H, Calcium 9.8, Total Bilirubin 0.4, AST 24, ALT 35, Alkaline Phosphatase 55, Total Protein 7.2, Albumin 4.2, Globulin 2.9, Albumin/Globulin Ratio 1.4 Vital Signs Temp Pulse Resp BP Pulse Ox 03/09/17 06:06 97.8 F 96 H 20 111/72 100 03/08/17 16:00 84 119/69 03/08/17 06:55 97.6 F 62 20 109/58 L 03/07/17 16:00 65 114/65 03/07/17 07:20 97.8 F 97 H 19 104/61 03/06/17 15:00 94 H 104/52 L 03/05/17 16:00 63 96/58 L 03/05/17 07:07 97.7 F 52 L 19 100/50 L 03/04/17 16:00 87 110/56 L 03/04/17 06:45 98.0 F 61 16 88/47 L 95 03/03/17 16:15 97.6 F 76 99/58 L 03/03/17 06:50 97.9 F 64 20 104/56 L 03/02/17 15:54 80 107/64 03/02/17 06:34 97.7 F 65 20 96/55 L 03/01/17 15:40 84 106/60 03/01/17 06:51 97.6 F 76 20 94/54 L 02/28/17 16:00 102 H 107/64 02/28/17 06:55 97.3 F L 81 20 104/65 02/27/17 16:00 91 H 101/66 02/27/17 07:14 98.4 F 94 H 17 115/72 02/26/17 07:05 97.9 F 130 H 18 135/80 02/25/17 06:33 98 F 79 19 114/70 02/25/17 04:00 87 104/63 02/24/17 18:01 20 02/24/17 16:55 100 H 18 124/79 100 02/24/17 15:46 102 H 18 126/56 L 100 02/24/17 10:19 98.7 F 116 H 20 132/71 99 Consultations:: List each consultation separately and include: 1. Reason for request. 2. Findings. 3. Follow-up Consultations: medical consult appreciated podiatry consult appreciated (pt needs to wear surgical boot for another 2-3 weeks for stress fracture of her toe) see notes for more detailed information Summary of Hospital Course include:: 1. Description of specific treatment plan utilized for patients during their course of treatmen. 2. Summarize the time- course for resolution of acute symptoms and/or regressed behaviors. 3. Describe issues identified and worked on during hospitalization. 4. Describe medication utilized. 5. Describe medical problems identified and treated. 6. Reassessment of suicide risk Summary of Hospital Course: Patient is a single 26 yo white female with psychiatric history of schizophrenia , prior psychiatric admissions-most recently 03/2015, in outpatient treatment with Dr. Roa, reportedly adherent with Invega 15 mg HS who was BIB police because she was found agitated and disorganized in the community. Patient also verbalized that she was suicidal and had thoughts of choking herself.please see ED consultation note. Patient's presentation was complicated by the involvement of her father and patient's escalating agitation in the ER. ER notes indicated that patient was initially pleasant, smiling and cooperative in the ER. However within an hour patient became agitated and started verbally and physically arguing with her 1:1. Patient demanded to leave the ER and required 4 point restraints for the safety of herself and other patients. Father was contacted by phone and he was adamant that patient doesn't receive restraints or medication especially Ativan. Staff accommodated father's request and removed leg restraints.Subsequently patient ran and tried to elope from the ER and fell. Collateral was obtained from patient's psychiatrist, Dr. Roa. He confirmed that patient's behavior was not typical for her and recommended admission for stabilization. initially pt's father said that he is pt's POA, but was not able to prove this statement, later on was found that pt is the one who makes decisions for herself. Patient eventually agreed to sign in voluntarily for psychiatric stabilization. Of note: Patient received prolixin 4 mg x1 prior to her arrival on the unit. Over the course of this hospitalization patient was stabilized on the go to 15 mg a day 3 life on 8 mg 3 times a day Cogentin 1 mg 3 times a day Benadryl 50 mg at the nighttime for insomnia patient tolerates medications well, no side effects observed or reported, aims 0 , no EPS. This va underwriter had meeting with patient family father as well as mother, discharge plan was discussed in details, family is willing to accept patient back and has appointment with Dr. Roa today. Over the course of this hospitalization pt was attending groups, pt also had medication management, had therapeutic milieu. Overall pt improved significantly, less psychotic, but still has residual symptoms of paranoia, but with much improvement, pt was socially appropriate, no behavioral issues, pts insight improved as well and soon pt deemed to be ready for discharge. At the time of the discharge pt denied been depressed, denied thoughts of harming self or others, denied psychotic symptoms, and pt does not appeared to be psychotic, denied been anxious, pt is not in imminent danger to self or others, will be following up at office today, information about follow up appointment, time and address provided to the pt, it is patient responsibility to follow up with outpatient clinic, PMD as well as specialists ( see note for more detailed information). In case pt will need to obtain results of studies pending at discharge pt was provided with contact information of Psychiatric Inpatient unit [phone] as well as Medical Record Department [phone]. pt is not smoking or using drugs pt was provided with prescriptions for all of medications (please see medication reconciliation form) Pt was educated about safety plan in case of worsening of symptoms or in case of suicidal or homicidal ideation call 911 or go to the nearest ER, also was educated to take meds as prescribed and stay away from drugs, pt verbalized understanding. - Diagnosis (1) Schizophrenia Status: Chronic Priority: High - Final Diagnosis (DSM 5) Condition upon Discharge: IMPROVED Disposition: HOME/ ROUTINE Follow-up Treatment Plan: At the time of the discharge pt denied been depressed, denied thoughts of harming self or others, denied psychotic symptoms, and pt does not appeared to be psychotic, denied been anxious, pt is not in imminent danger to self or others, will be following up at office today, information about follow up appointment, time and address provided to the pt, it is patient responsibility to follow up with outpatient clinic, PMD as well as specialists ( see SW note for more detailed information). In case pt will need to obtain results of studies pending at discharge pt was provided with contact information of Psychiatric Inpatient unit [phone] as well as Medical Record Department [phone]. pt is not smoking or using drugs pt was provided with prescriptions for all of medications (please see medication reconciliation form) Pt was educated about safety plan in case of worsening of symptoms or in case of suicidal or homicidal ideation call 911 or go to the nearest ER, also was educated to take meds as prescribed and stay away from drugs, pt verbalized understanding. Prescriptions/Medication Reconciliation: RX: Benztropine [Cogentin] 1 mg PO TID #45 tab RX: DiphenhydrAMINE [Benadryl] 50 mg PO HS PRN #14 cap PRN Reason: Insomnia Paliperidone [Paliperidone ER] 6 mg PO DAILY #14 [email or web address] RX: Paliperidone [Paliperidone ER] 9 mg pe PO DAILY #14 [id number] RX: Perphenazine 8 mg PO TID #45 tab - Smoking Cessation Smoking Cessation Medication prescribed: No Reason for not providing: denies smoking - Antipsychotic Medications Pt discharged on 2 or more routine antipsychotic medications: Yes - Justification for 2 or more meds Failed 3 or more trials of Monotherapy: List medications: pt is very particular about her medicaitons, considering severeness of her psychosis pt needs to continue on two antipsychotics. pt was doing well on two antipsychotic meds, family and pt were insisting to be on trilafon and Invega, plan to taper down trilafon slowly or substitute for clozaril. pt will be f/u with her primary psychiatrist .
== END 2017-03-09 13:16 | disposition home or self-care (01) | DRG 430 ==
LOC: ED 10:09 → ERH 15:11 → PSYC 17:27
PROVIDERS: ADMIT Psychiatry & Neurology Psychiatry; ATTEND Psychiatry & Neurology Psychiatry
PROC: 0HBRXZZ Excision of Toe Nail, External Approach (ICD-10-PCS; principal; 2017-02-28)
DX: F20.0 Paranoid schizophrenia (principal); R45.851 Suicidal ideations; G47.00 Insomnia, unspecified; L60.8 Other nail disorders; S92.514A Nondisplaced fracture of proximal phalanx of right lesser toe(s), initial encounter for closed fracture; X58.XXXA Exposure to other specified factors, initial encounter; Z78.1 Physical restraint status

== ENCOUNTER 2017-09-27 03:50 | Inpatient (IN) | payer BC, MEDICARE, MEDICAID ==
--- NOTE | 2017-09-27 04:16 | ED PDOC ---
Arrival/HPI - General Time Seen by Provider: 09/27/17 03:59 Historian: Patient - History of Present Illness Narrative History of Present Illness (Text): 09/27/17 04:16 Abigail Allen is a 27 year old female, whose past medical history includes schizophrenia, who presents to the Emergency department complaining of hallucinations and paranoia tonight. Patient states she felt unsafe at her grandmother's house tonight because of she was scared of "someone." Patient also reports she is hearing voices at times. Patient states she is compliant with her medication. Patient denies any suicidal ideation, homicidal ideaion, fever, chills, chest pain, shortness of breath, nausea, vomiting, diarrhea, urinary symptoms, back pain, neck pain, headache, dizziness, or any other complaints. Symptom Onset: Gradual Symptom Course: Unchanged Activities at Onset: Light Context: Home Past Medical History - Provider Review Nursing Documentation Reviewed: Yes - Infectious Disease Hx of Infectious Diseases: None - Cardiac Hx Cardiac Disorders: No Hx Hypertension: No - Pulmonary Hx Respiratory Disorders: No Hx Tuberculosis: No - Neurological HX Cerebrovascular Accident: No Hx Seizures: No - HEENT Hx HEENT Disorder: No - Renal Hx Renal Disorder: No - Endocrine/Metabolic Hx Endocrine Disorders: No - Hematological/Oncological Hx Cancer: No - Integumentary Hx Dermatological Disorder: No - Musculoskeletal/Rheumatological Hx Musculoskeletal Disorders: No - Gastrointestinal Hx Gastrointestinal Disorders: No - Genitourinary/Gynecological Hx Sexually Transmitted Diseases: No - Psychiatric Hx Schizophrenia: Yes Hx Substance Use: No - Anesthesia Hx Anesthesia: No Family/Social History - Physician Review Nursing Documentation Reviewed: Yes Family/Social History: Unknown Family HX Smoking Status: Never Smoked Hx Alcohol Use: No Hx Substance Use: No Allergies/Home Meds Allergies/Adverse Reactions: Allergies No Known Allergies Allergy (Verified 09/28/17 03:04) Review of Systems - Physician Review All systems were reviewed & negative as marked: Yes - Review of Systems Constitutional: Normal. absent: Fevers Eyes: Normal ENT: Normal Respiratory: Normal. absent: SOB, Cough Cardiovascular: Normal. absent: Chest Pain Gastrointestinal: Normal. absent: Abdominal Pain, Diarrhea, Nausea, Vomiting Genitourinary Female: Normal. absent: Dysuria, Frequency, Hematuria, Urine Output Changes Musculoskeletal: Normal. absent: Back Pain, Neck Pain Skin: Normal. absent: Rash Neurological: Normal. absent: Headache, Dizziness Endocrine: Normal Hemo/Lymphatic: Normal Psychiatric: Other (+auditory hallucinations, +paranoia). absent: Depression, Suicidal Ideation Physical Exam Vital Signs Reviewed: Yes Vital Signs Temp Pulse Resp BP Pulse Ox 09/27/17 21:45 98.1 F 89 18 124/76 99 09/27/17 20:00 98.1 F 89 18 124/76 99 09/27/17 18:21 88 16 120/75 98 09/27/17 16:21 84 16 126/91 H 98 09/27/17 13:38 98.0 F 64 17 114/66 99 09/27/17 09:35 70 16 112/69 98 09/27/17 09:21 61 18 102/61 98 Temperature: Afebrile Blood Pressure: Normal Pulse: Regular Respiratory Rate: Normal Appearance: Positive for: Well-Appearing, Non-Toxic, Comfortable Pain Distress: None Mental Status: Positive for: Alert and Oriented X 3 - Systems Exam Head: Present: Atraumatic, Normocephalic Pupils: Present: PERRL Extroacular Muscles: Present: EOMI Conjunctiva: Present: Normal Mouth: Present: Moist Mucous Membranes Neck: Present: Normal Range of Motion Respiratory/Chest: Present: Clear to Auscultation, Good Air Exchange. No: Respiratory Distress, Accessory Muscle Use Cardiovascular: Present: Regular Rate and Rhythm, Normal S1, S2. No: Murmurs Abdomen: No: Tenderness, Distention, Peritoneal Signs Back: Present: Normal Inspection Upper Extremity: Present: Normal Inspection. No: Cyanosis, Edema Lower Extremity: Present: Normal Inspection. No: Edema Neurological: Present: GCS=15, CN II-XII Intact, Speech Normal Skin: Present: Warm, Dry, Normal Color. No: Rashes Psychiatric: Present: Alert, Oriented x 3, Normal Insight, Normal Concentration Medical Decision Making ED Course and Treatment: 09/27/17 04:16 Impression: 27 year old female complaining of paranoia and auditory hallucinations. Plan: -- EKG -- Labs, alcohol level -- Urinalysis, urine drug screen -- Reassess and disposition Prior Visits: Notes and results from previous visits were reviewed. Progress Notes: Reviewed EKG, sinus rhythm at [address] bpm[address] Non-specific ST/T wave changes. 09/27/17 06:19 Pt seen and evaluated by PES screener, who discussed case with psychiatrist swimming pool salesperson. Pt will be admitted to Behavioral Health for schizophrenia under Dr. Ahn's service. Pt agreeable with plan. - Lab Interpretations Lab Results: 09/27/17 05:20 09/27/17 05:20 Lab Results 09/27/17 06:21: Urine Opiates Screen Negative, Urine Methadone Screen Negative, Ur Barbiturates Screen Negative, Ur Phencyclidine Scrn Negative, Ur Amphetamines Screen Negative, U Benzodiazepines Scrn Negative, U Oth Cocaine Metabols Negative, U Cannabinoids Screen Negative 09/27/17 06:21: Urine Color Yellow, Urine Appearance Clear, Urine pH 6.0, Ur Specific [place] 1.020, Urine Protein Negative, Urine Glucose (UA) Negative, Urine Ketones Negative, Urine Blood Negative, Urine Nitrate Negative, Urine Bilirubin Negative, Urine Urobilinogen 0.2, Ur Leukocyte Esterase Negative 09/27/17 05:20: Alcohol, Quantitative < 10 09/27/17 05:20: Salicylates < 1 L, Acetaminophen < 10.0 L 09/27/17 05:20: Sodium 140, Potassium 4.1, Chloride 104, Carbon Dioxide 28, Anion Gap 12, BUN 14, Creatinine 0.8, Est GFR ( Amer) > 60, Est GFR (Non- Af Amer) > 60, Random Glucose 93, Calcium 9.1, Magnesium 2.1, Total Bilirubin 0.1 L, AST 22, ALT 38, Alkaline Phosphatase 55, Total Protein 6.2, Albumin 3.6, Globulin 2.6, Albumin/Globulin Ratio 1.4 09/27/17 05:20: WBC 10.8 D, RBC 3.89, Hgb 11.1 L, Hct 33.2 L, MCV 85.3, MCH 28.5, MCHC 33.4, RDW 13.2, Plt Count 291, MPV 10.1, Gran % 72.0 H, Lymph % (Auto ) 19.2 L, [place] % (Auto) 7.2 H, Eos % (Auto) 1.3 L, Baso % (Auto) 0.3, Gran # 7.77 H, Lymph # (Auto) 2.1, [place] # (Auto) 0.8 H, Eos # (Auto) 0.1, Baso # (Auto ) 0.03 I have reviewed the lab results: Yes - EKG Interpretation Interpreted by ED Physician: Yes Type: 12 lead EKG - Medication Orders Current Medication Orders: Acetaminophen (Tylenol 325mg Tab) 650 mg PO Q6H PRN PRN Reason: Pain, moderate (4-7) Al Hydrox/Mg Hydrox/Simethicone (Maalox Plus 30 Ml) 30 ml PO DAILY PRN PRN Reason: Indigestion / Heartburn Chlorpromazine (Thorazine) 50 mg IM TID PRN; Protocol PRN Reason: SEVERE AGITATION Chlorpromazine (Thorazine) 50 mg PO TID PRN; Protocol PRN Reason: Agitation Home Med (Home Med) 1 unit PO AMHS CM Last Admin: 09/27/17 23:44 Dose: 1 unit Lorazepam (Ativan) 0.5 mg PO TID PRN; Protocol PRN Reason: Anxiety Last Admin: 09/27/17 23:50 Dose: 0.5 mg Behavioural Document 09/27/17 23:50 DC (Rec: 09/27/17 23:50 DC [id number]) Maintenance Maintenance Dose No Nonmedicinal Nonmedicinal Interventions Redirect Behavior Behavior for Medication: Anxiety Re-Assess: Reassess Psych Meds Document 09/28/17 00:50 DC (Rec: 09/28/17 03:03 DC [id number]) Reassess Psych Med Effective Magnesium Hydroxide (Milk Of Magnesia) 30 ml PO DAILY PRN PRN Reason: Constipation Zolpidem Tartrate (Ambien) 5 mg PO HS PRN; Protocol PRN Reason: Insomnia Last Admin: 09/27/17 23:50 Dose: 5 mg Behavioural Document 09/27/17 23:50 DC (Rec: 09/27/17 23:51 DC [id number]) Maintenance Maintenance Dose No Nonmedicinal Nonmedicinal Interventions Redirect Behavior Behavior for Medication: Insomnia Re-Assess: Reassess Psych Meds Document 09/28/17 00:50 DC (Rec: 09/28/17 03:03 DC [id number]) Reassess Psych Med Effective - Scribe Statement The provider has reviewed the documentation as recorded by the Scribbrie Fernandez Provider Scribe Attestation: All medical record entries made by the Scribe were at my direction and personally dictated by me. I have reviewed the chart and agree that the record accurately reflects my personal performance of the history, physical exam, medical decision making, and the department course for this patient. I have also personally directed, reviewed, and agree with the discharge instructions and disposition. Disposition/Present on Arrival - Present on Arrival Any Indicators Present on Arrival: No History of DVT/PE: No History of Uncontrolled Diabetes: No Urinary Catheter: No History Surgical Site Infection Following: None - Disposition Have Diagnosis and Disposition been Completed?: Yes Diagnosis: Schizophrenia Disposition: HOSPITALIZED Disposition Time: 06:19 Condition: GOOD
[2017-09-27 05:57] LABS: BASO # 0.03 K/mm3 (0.0-2.0); BASO % 0.3 % (0.0-3.0); EOS # 0.1 (0.0-0.7); EOS % 1.3 % (1.5-5.0); GRAN # 7.77 (1.4-6.5); HEMOGLOBIN 11.1 g/dL (12.0-16.0); LYMPH # 2.1 (1.2-3.4); LYMPH % 19.2 % (22.0-35.0); MEAN CELL VOLUME 85.3 fl (80.0-105.0); MEAN CORPUSCULAR HEMOGLOBIN 28.5 pg (25.0-35.0); MEAN CORPUSCULAR HGB CONC 33.4 g/dl (31.0-37.0); MEAN PLATELET VOLUME 10.1 fl (7.0-11.0); MONO # 0.8 (0.1-0.6); MONO % 7.2 % (1.0-6.0); RBC 3.89 10^6/uL (3.5-6.1); RED CELL DISTRIBUTION WIDTH 13.2 % (11.5-14.5); WHITE BLOOD COUNT 10.8 10^3/ul (4.5-11.0)
[2017-09-27 06:01] LABS: ACETAMINOPHEN < 10.0 ug/ml (10.0-20.0); SALICYLATE < 1 mg/dL (2.0-20.0)
[2017-09-27 06:02] LABS: ALB/GLOB RATIO 1.4 (1.1-1.8); ALBUMIN 3.6 g/dL (3.0-4.8); ALT/SGPT 38 U/L (7-56); AST/SGOT 22 U/L (14-36); BLOOD UREA NITROGEN 14 mg/dL (7-21); CALCIUM 9.1 mg/dL (8.4-10.5); GFR AFRICAN-AMERICAN > 60; GFR NON-AFRICAN AMERICAN > 60
[2017-09-27 06:36] LABS: URINE BILIRUBIN NEGATIVE (NEGATIVE); URINE BLOOD NEGATIVE (NEGATIVE); URINE GLUCOSE (UA) NEGATIVE (NEGATIVE); URINE LEUKOCYTE ESTERASE NEGATIVE Leu/uL (NEGATIVE); URINE PROTEIN NEGATIVE mg/dL (<30 mg/dL); URINE UROBILINOGEN 0.2 E.U./dL (<1 E.U./dL)
[2017-09-27 06:48] LABS: URINE APPEARANCE CLEAR (CLEAR); URINE COLOR YELLOW (YELLOW)
[2017-09-27 06:57] LABS: BARBITURATES, UR NEGATIVE (NEGATIVE); BENZODIAZEPINES, UR NEGATIVE (NEGATIVE); OPIATES, UR NEGATIVE (NEGATIVE); PHENCYCLIDINE, UR NEGATIVE (NEGATIVE)
--- NOTE | 2017-09-27 09:26 | CARD ---
APPROVED REPORT EKG Measurement Heart [id number] <Conclusion> Sinus rhythm with 1st degree AV block Otherwise normal ECG
--- NOTE | 2017-09-27 11:32 | CON ---
DATE: 09/27/2017 HISTORY OF PRESENT ILLNESS: In short, the patient is a 27-year-old female with long and debilitating history of schizophrenia, multiple hospitalizations in the past. The patient is under care of private psychiatrist in [place]. The patient brought herself to the hospital looking for help for her worsening of psychosis. The patient was feeling that somebody is going to rape her in the house. The patient also is hearing voices and emergency room physician called for consultation for above-named symptoms. The patient is very familiar to this comic writer from prolonged hospitalization to [facility], which took place in 02/2017. The patient was discharged on the following medications. Cogentin, Benadryl, Invega 6 mg daily and 9 mg at the nighttime and Thorazine 8 mg three times a day. The patient reported that her medications were not changed recently and she was compliant with the medication. The patient was seen in the emergency room. The patient presented to be disheveled, poor personal hygiene, long uncombed hair, greasy. The patient overall was pleasant and cooperative, but presented to be psychotic, disorganized. The patient reported that she feels unsafe in the house and she was afraid that she is going to be raped. The patient is not sure if anyone make any threats towards her, but she feels unsafe. The patient is willing to sign into the Psychiatric Inpatient Unit and get further treatment here. The patient reported that she is filling her medication in [facility], but unfortunately [facility] is closed right now. We will call and confirm medications. Labs reviewed, most recent from today. Hemoglobin and hematocrit 11.1 and 33.2 respectively. Chemistry reviewed, seems to be within normal limits. Urinalysis reviewed within normal limits. Toxicology reviewed negative for any substances. Serology reviewed, most recent was on 02/25/2017. MENTAL STATUS EXAMINATION: The patient presented to be alert, oriented, poor personal hygiene. Intense eye contact. Speech was rapid, low volume. Mood described, I do not feel safe. Affect was flat. Thought process circumstantial and tangential. Thought content, the patient reported to hear voices and feeling unsafe, paranoia. The patient presented to be internally preoccupied and disorganized. Insight and judgment seems to be fair. Impulses are well controlled. IMPRESSION: As per history, the patient has schizophrenia, paranoid type, chronic with acute exacerbation. PLAN: The patient is willing to sign herself into the Psychiatric Inpatient Unit. The patient has good insight. The patient has capacity to do so. We will adjust medication. I called [facility] to confirm medications [phone] pt was on Ativan 0.5mg po bid as well as Invega 12mg po hs, prescribed by [facility] psychiatrist on September 13, but pt never fill it. The patient will be transferred to Psychiatric Inpatient Unit as soon as bed is available. Thank you very much for letting me participate in the care of your patient. Monica Ahn MD MTDD
[2017-09-27] MEDS ORDERED: Alum-Mag Hydrox-Simethicone Susp (30 mL) PO PRN (23:03)
[2017-09-27] MEDS ORDERED: Magnesium Hydroxide Susp 30 ml UD PO PRN (23:03)
[2017-09-27] MEDS: PALIPERIDONE 6 MG PO SCH (23:44)
--- NOTE | 2017-09-28 01:00 | PCM.BM ---
<Roger Brian - Last Filed: 09/28/17 00:57> Treatment Plan Problems - Problems identified on initial assessmt Auditory Hallucinations Date Initiated: 09/28/17 Time Initiated: 22:15 Assessment reference: NA Status: Active Priority: 1 Altered Thought Process Date Initiated: 09/28/17 Time Initiated: 22:15 Priority: 2 Ineffective Family Coping: Compromised Date Initiated: 09/28/17 Time Initiated: 22:15 Assessment reference: NA Status: Active Priority: 3 Ineffective Coping Date Initiated: 09/28/17 Time Initiated: 22:15 Assessment reference: NA Status: Active Priority: 4 Treatment assets and liabiliti Patient Assests: educated, self-reliant, ADL independent, physically healthy, strong mini Patient Liabilities: relationship conflicts - Milieu Protocol Maintain good personal hygiene: daily Encourage regular showers, every shift Remind patient to perform daily oral care, every shift Assist patient to perform ADL's Maintain personal safety: every shift Educate patient to report safety concerns to staff, every shift Monitor environment for contraband/sharps Medication safety: Monitor for expected outcome, potential side effects: every shift, Assess barriers to learning: every shift, Assess readiness for medication education: every shift Family Contact Family involvement: Family/SO is involved Family contact: Patient agrees to contact - Goals for Treatment Patient goals for treatment: safety at home Discharge/Continuing Care - Education Needs Education Needs: Family Diagnosis/Disease Process, Family Coping Skills, Family Placement options, Family Community resources, Family Aftercare Safety Plan, Patient Medication, Patient Diagnosis/Disease Process, Patient Coping Skills, Patient Anger Management skills, Patient Placement options, Patient Community resources, Patient Activities of Daily Living, Patient Nutrition, Patient Health Practices/Safety, Patient Personal Hygiene/Grooming, Patient Aftercare Safety Plan - Discharge Discharge Criteria: Tolerates medication w/o severe side effects, Free of paranoid thoughts <Mary Frederick - Last Filed: 09/29/17 17:29> Family Contact Family involvement: Family/SO is involved Family contact: Patient agrees to contact Family contact name: Stefanie Allen(mother) Family contacted how many times per week?: 2 <Monica Ahn - Last Filed: 10/04/17 09:14> - Diagnosis (1) Schizophrenia Status: Chronic Interventions: 09/28/17 09:07 Psychoeducation/psychotherapy Psychopharmacology/adjustment of medications as needed/ monitoring possible side effects Evaluate pt on daily basis Compliance with medications and follow up appointments Long acting medication if pt is noncompliant with pill form Suicide and homicide risk assessment and prevention, coping strategies, safety plan Relapse prevention Reduction of symptoms Improve functional status Possible assertive community treatment Cognitive behavioral therapy Family involvement Possible social skill training as outpatient
[2017-09-28 03:05] VITALS: BMI 28.1
[2017-09-28 07:03] LABS: GLUCOSE,FASTING 84 mg/dL (65-110); HDL CHOLESTEROL 69 mg/dL (29-60)
[2017-09-28 07:13] LABS: LDL CHOLESTEROL 62 mg/dL (0-129)
--- NOTE | 2017-09-28 08:25 | RAD ---
HISTORY: PES admit SOP COMPARISON: 02/24/2017 FINDINGS: LUNGS: No active pulmonary disease. PLEURA: No significant pleural effusion identified, no pneumothorax apparent. CARDIOVASCULAR: Normal. OSSEOUS STRUCTURES: No significant abnormalities. VISUALIZED UPPER ABDOMEN: Normal. OTHER FINDINGS: None. IMPRESSION: No active disease.
[2017-09-28] MEDS: PALIPERIDONE 6 MG PO SCH ×2 (10:06→21:37)
--- NOTE | 2017-09-28 14:46 | PCM.PSYCH ---
Initial Psychiatric Evaluation - Initial Psychiatric Evaluation Type of Admission: Voluntary Legal Status: Capacity (Patient has capacity to sign consent for treatment) Chief Complaint (in patient's own words): "I was scared, I thought that I will be raped and killed, but maybe my mind playing tricks on me" Patient's Reaction to Hospitalization: Patient was admitted to the psychiatric inpatient unit for forcing of psychosis , feeling not safe, inability to function. History of Present Illness and Precipitating Events: Patient is a single 26 yo white female with psychiatric history of schizophrenia , prior psychiatric admissions-most [id number] before that on 03/2015, in outpatient treatment with Dr. Roa, reportedly adherent with Invega, pt self referred for evaluation of worsening of paranoia, inability to function, patient reported that she feels scared in the house where she lives because she was scared that she will be raped and killed by one of her relatives by the name "Jorge", patient was not able to contract for safety in the emergency room , patient wants her medication to be adjusted, patient signed consent for treatment and was transferred to psychiatric the patient stated on September 27, transfer was uneventful. 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 pt was seen at the treatment team meeting, presented with acceptable personal hygiene, good ADLs, pt presented to be Disorganized in her thoughts, patient reported that she was feeling unsafe in the place where she lives, patient was scared that she will be raped as well as killed by one of her relatives by the name "Jorge", patient reported that "Jonathan is jealous of me because I have better job", at the same time patient reported that she is not currently working , patient reported that she does not want to go back to the same house, patient reported that her grandmother at the same time "I'm not sure if it is true or not". Patient reported that situation makes her feel depressed and anxious, patient reported that she was not sleeping well, patient reported that she is taking her medication as it was scheduled but as per [facility] pharmacy patient did not chart picker her medications as September 13. Patient reported that she still sees Dr. Meyer in the community for the past 9years, last visit was about 2 weeks ago. pt formal v/a/t hallucinations, patient presented to be disorganized and psychotic, at the same time patient has good insight into her illness, "I don't know maybe my mind is playing tricks on me". patient does not have any thoughts of harming others, including "Jorge". patient denied ever been abused by anyone, denied physical, emotional, sexual. denied using any drugs, denied smoking denied consumption of alcohol. PSYCHIATRIC HISTORY Patient reports at least 3 prior admissions. Most recently 02/[address] [facility], before that patient was hospitalized on 03/2015 and also in her last year of high school. She has been in outpatient treatment with Dr. Roa for 9 years. She is prescribed Invega 12 mg HS. Prolixin has also been beneficial for her in the past. Patient denies any history of SA but reports suicidal ideation last admission. SOCIAL HISTORY Patient was born and raised in [place]. She is single. She has a boyfriend named Henry for 6 years. She has no children. She reside with her relatives at [place]. Patient graduated from high school but completed her final year with home schooling due to decompensation. She denies any history of special education classes. Patient graduated [employer] with a major in psychology & human services. no major medical problems No family history of mental illness 09/27/17 05:20 09/27/17 05:20 Lab Results 09/28/17 06:30: TSH 3rd Generation 1.34 09/28/17 06:30: Fasting Glucose 84, Triglycerides 57, Cholesterol 161, LDL Cholesterol Direct 62, HDL Cholesterol 69 H 09/27/17 06:21: Urine Opiates Screen Negative, Urine Methadone Screen Negative, Ur Barbiturates Screen Negative, Ur Phencyclidine Scrn Negative, Ur Amphetamines Screen Negative, U Benzodiazepines Scrn Negative, U Oth Cocaine Metabols Negative, U Cannabinoids Screen Negative 09/27/17 06:21: Urine Color Yellow, Urine Appearance Clear, Urine pH 6.0, Ur Specific [place] 1.020, Urine Protein Negative, Urine Glucose (UA) Negative, Urine Ketones Negative, Urine Blood Negative, Urine Nitrate Negative, Urine Bilirubin Negative, Urine Urobilinogen 0.2, Ur Leukocyte Esterase Negative 09/27/17 05:20: Alcohol, Quantitative < 10 09/27/17 05:20: Salicylates < 1 L, Acetaminophen < 10.0 L 09/27/17 05:20: Sodium 140, Potassium 4.1, Chloride 104, Carbon Dioxide 28, Anion Gap 12, BUN 14, Creatinine 0.8, Est GFR ( Amer) > 60, Est GFR (Non- Af Amer) > 60, Random Glucose 93, Calcium 9.1, Magnesium 2.1, Total Bilirubin 0.1 L, AST 22, ALT 38, Alkaline Phosphatase 55, Total Protein 6.2, Albumin 3.6, Globulin 2.6, Albumin/Globulin Ratio 1.4 09/27/17 05:20: WBC 10.8 D, RBC 3.89, Hgb 11.1 L, Hct 33.2 L, MCV 85.3, MCH 28.5, MCHC 33.4, RDW 13.2, Plt Count 291, MPV 10.1, Gran % 72.0 H, Lymph % (Auto ) 19.2 L, [place] % (Auto) 7.2 H, Eos % (Auto) 1.3 L, Baso % (Auto) 0.3, Gran # 7.77 H, Lymph # (Auto) 2.1, [place] # (Auto) 0.8 H, Eos # (Auto) 0.1, Baso # (Auto ) 0.03 Vital Signs Temp Pulse Resp BP Pulse Ox 09/28/17 00:00 19 09/27/17 22:20 97.4 F L 67 19 101/60 100 09/27/17 21:45 98.1 F 89 18 124/76 99 09/27/17 20:00 98.1 F 89 18 124/76 99 09/27/17 18:21 88 16 120/75 98 09/27/17 16:21 84 16 126/91 H 98 09/27/17 13:38 98.0 F 64 17 114/66 99 09/27/17 09:35 70 16 112/69 98 09/27/17 09:21 61 18 102/61 98 Current Medications: Active Medications Generic Name Dose Route Start Last Admin Trade Name Freq PRN Reason Stop Dose Admin Acetaminophen 650 mg 09/27/17 23:03 Tylenol 325mg Tab PO Q6H PRN Pain, moderate (4-7) Al Hydrox/Mg Hydrox/Simethicone 30 ml 09/27/17 23:03 Maalox Plus 30 Ml PO DAILY PRN Indigestion / Heartburn Chlorpromazine 50 mg 09/27/17 23:17 Thorazine IM TID PRN SEVERE AGITATION Protocol Chlorpromazine 50 mg 09/27/17 23:19 Thorazine PO TID PRN Agitation Protocol Home Med 1 unit 09/27/17 23:10 09/28/17 10:06 Home Med PO 1 unit [facility] CM Administration Lorazepam 0.5 mg 09/27/17 23:14 09/28/17 10:06 Ativan PO 0.5 mg TID PRN Administration Anxiety Protocol Magnesium Hydroxide 30 ml 09/27/17 23:03 Milk Of Magnesia PO DAILY PRN Constipation Zolpidem Tartrate 5 mg 09/27/17 23:11 09/27/17 23:50 Ambien PO 5 mg HS PRN Administration Insomnia Protocol Past Psychiatric History - Past Psychiatric History Previous Treatment History: Inpatient Prior Professional Help: see HPI Prior Psychiatric Treatment: see HPI At [facility]: see HPI Duration: see HPI Nature of Treatment: see HPI Explanation of prior treatment: see HPI History of Abuse: see HPI History of ETOH/Drug Use: see HPI History of Family Illness: see HPI Pertinent Medical Hx (Current Medical&Sleep Prob, Allergies): Allergies Allergy/AdvReac Type Severity Reaction Status Date / Time No Known Allergies Allergy Verified 09/28/17 03:04 Paliperidone [Paliperidone ER] 9 mg pe PO DAILY #14 [email or web address] 03/03/17 Review of Systems - Review of Systems Systems not reviewed;Unavailable: Acuity of Condition - EENT Eyes: As Per HPI Ears: As Per HPI Nose/Mouth/Throat: As Per HPI - Breasts Breasts: As Per HPI - Cardiovascular Cardiovascular: As Per HPI - Respiratory Respiratory: As Per HPI - Gastrointestinal Gastrointestinal: As Per HPI - Genitourinary Genitourinary: As Per HPI - Reproductive: Female Reproductive:Female: As Per HPI - Menstruation Menstruation: As Per HPI - Musculoskeletal Musculoskeletal: As Par HPI - Integumentary Integumentary: As Per HPI - Neurological Neurological: As Per HPI - Psychiatric Psychiatric: As Per HPI - Endocrine Endocrine: As Per HPI - Hematologic/Lymphatic Hematologic: As Per HPI Mental Status Examination - Personal Presentation Personal Presentation: Looks stated age - Affect Affect: Constricted - Motor Activity Motor Activity: Calm - Reliability in Providing Information Reliability in Providing Information: Fair - Speech Speech: Disorganized, Tangential - Formal Thought Process Formal Thought Process: Delusions, Paranoia, Circumstantial - Hallucinations/Delusions Delusions: Persecution - Obsessions/Compulsions Obsessions: None Compulsions: None - Cognitive Functions Orientation: Person, Place Sensorium: Alert Attention/Concentration: Easily distracted Abstract Thinking: [place], As evidence by abstract perception of proverbs Estimate of Intelligence: Average Judgement: Intact, as evidence by: Insight regarding need for hospitalization - Risk Risk: Self-mutilation, Diminished functioning - Strength & Assets Inventory Strength & Assets Inventory: Intelligence, Family support, Education, Cooperative, Other (pt is in good physical health, no drugs involved\\) - Limitations Limitations: Other (severe mental illness) DSM 5 DX - DSM 5 DSM 5 Diagnosis: schizophrenia - Recommended/Plan of Treatment Treatment Recommendations and Plan of Treatment: Milieu/structure/supportive therapy Medical consult will be considered SW consultation for discharge plan and social issues Med management Invega 6 mg twice a day for psychosis will be continued Ativan 0.5 mg twice a day for anxiety Patient was tolerating Prolixin well in the past 2.5 mg at the nighttime started Family involvement Follow up on labs Will monitor closely Pt was educated about risk/benefits and alternatives of medications, coping strategies (safety plan, suicide prevention), relapse prevention, importance of follow up with psychiatrist and therapist, stay away from drugs/alcohol/smoking Projected ELOS: 7days Prognosis: fair Discharge Plan and Discharge Criteria: Pt will be not depressed or manic, will be more hopeful, will be not psychotic or anxious, will be not having thoughts of harming self or others, will be tolerating medications well, will not have major side effects, will be able to function, will not pose threat to self or others. - Smoking Cessation Smoking Cessation Initiated: No Reason for not providing: pt does not smoke
[2017-09-29] MEDS: PALIPERIDONE 6 MG PO SCH (09:04)
--- NOTE | 2017-09-29 14:55 | PCM.PYCHPN ---
Psychiatric Progress Note - Psychiatric Progress Note Patient seen today, length of contact: 30min Patient Chief Complaint: "there is one particular boy at [facility] [place], he creeps up behind me, it is weird, but I am comfortable with you guys, you treat me well, this place is cool." Problems Identified/Issues Discussed: Suicide/ homicide prevention, past psychiatric h/o, current psychiatric symptoms , medical problems, risk/benefits and alternatives of medications, medications compliance, coping strategies, substance abuse h/o, relapse prevention, importance of follow up with psychiatrist and therapist, discharge plan. Medical Problems: pt is healthy Diagnostic Results: 09/27/17 05:20 09/27/17 05:20 Lab Results 09/28/17 06:30: RPR Nonreactive 09/28/17 06:30: TSH 3rd Generation 1.34 09/28/17 06:30: Fasting Glucose 84, Triglycerides 57, Cholesterol 161, LDL Cholesterol Direct 62, HDL Cholesterol 69 H 09/27/17 06:21: Urine Opiates Screen Negative, Urine Methadone Screen Negative, Ur Barbiturates Screen Negative, Ur Phencyclidine Scrn Negative, Ur Amphetamines Screen Negative, U Benzodiazepines Scrn Negative, U Oth Cocaine Metabols Negative, U Cannabinoids Screen Negative 09/27/17 06:21: Urine Color Yellow, Urine Appearance Clear, Urine pH 6.0, Ur Specific [place] 1.020, Urine Protein Negative, Urine Glucose (UA) Negative, Urine Ketones Negative, Urine Blood Negative, Urine Nitrate Negative, Urine Bilirubin Negative, Urine Urobilinogen 0.2, Ur Leukocyte Esterase Negative 09/27/17 05:20: Alcohol, Quantitative < 10 09/27/17 05:20: Salicylates < 1 L, Acetaminophen < 10.0 L 09/27/17 05:20: Sodium 140, Potassium 4.1, Chloride 104, Carbon Dioxide 28, Anion Gap 12, BUN 14, Creatinine 0.8, Est GFR ( Amer) > 60, Est GFR (Non- Af Amer) > 60, Random Glucose 93, Calcium 9.1, Magnesium 2.1, Total Bilirubin 0.1 L, AST 22, ALT 38, Alkaline Phosphatase 55, Total Protein 6.2, Albumin 3.6, Globulin 2.6, Albumin/Globulin Ratio 1.4 09/27/17 05:20: WBC 10.8 D, RBC 3.89, Hgb 11.1 L, Hct 33.2 L, MCV 85.3, MCH 28.5, MCHC 33.4, RDW 13.2, Plt Count 291, MPV 10.1, Gran % 72.0 H, Lymph % (Auto ) 19.2 L, [place] % (Auto) 7.2 H, Eos % (Auto) 1.3 L, Baso % (Auto) 0.3, Gran # 7.77 H, Lymph # (Auto) 2.1, [place] # (Auto) 0.8 H, Eos # (Auto) 0.1, Baso # (Auto ) 0.03 Vital Signs Temp Pulse Resp BP Pulse Ox 09/29/17 07:23 97.7 F 66 17 99/47 L 09/28/17 21:00 84 121/55 L 09/28/17 00:00 19 09/27/17 22:20 97.4 F L 67 19 101/60 100 09/27/17 21:45 98.1 F 89 18 124/76 99 09/27/17 20:00 98.1 F 89 18 124/76 99 09/27/17 18:21 88 16 120/75 98 09/27/17 16:21 84 16 126/91 H 98 09/27/17 13:38 98.0 F 64 17 114/66 99 09/27/17 09:35 70 16 112/69 98 09/27/17 09:21 61 18 102/61 98 DSM 5 Symptoms Update: Patient is a single 26 yo white female with psychiatric history of schizophrenia , prior psychiatric admissions-most [id number] before that on 03/2015, in outpatient treatment with Dr. Roa, reportedly adherent with Invega, pt self referred for evaluation of worsening of paranoia, inability to function, patient reported that she feels scared in the house where she lives because she was scared that she will be raped and killed by one of her relatives by the name "Jorge", patient was not able to contract for safety in the emergency room , patient wants her medication to be adjusted, patient signed consent for treatment and was transferred to psychiatric the patient stated on September 27, transfer was uneventful. 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 pt was seen at the treatment team meeting room today, presented with acceptable personal hygiene, good ADLs, pt presented to be Disorganized in her thoughts, manic, pressured speech, pt also presented to be paranoid. "there is one particular boy at [facility] [place] [facility], he creeps up behind me, it is weird, but I am comfortable with you guys, you treat me well, this place is cool." patient was scared that she will be raped as well as killed by one of her relatives by the name "Jorge", patient reported that "Jorge is jealous of me because I have better job", at the same time patient reported that she is not currently working, patient reported that she does not want to go back to the same house, patient reported that her grandmother at the same time "I'm not sure if it is true or not". Patient reported that situation makes her feel depressed and anxious, patient reported that she was not sleeping well. tx plan was discussed in details, pt did not remember conversation about prolixin or invega yesterday, "if you say so..." as per staff pt seems to be in manic stage, restless, but no agitation or aggression, compliant with meds. patient tolerates medications well, no side effects observed or reported, aims 0 , no EPS. Impression: Schizophrenia as per history Rule out schizoaffective disorder bipolar type Medication Change: Yes (prolixin was added, today incrased) Medical Record Reviewed: Yes Consults ordered or reviewed: pt is healthy, was seen by medical team at ED Mental Status Examination - Cognitive Function Orientation: Person, Place Memory: Intact Attention: Poor Concentration: Poor Association: Loose Fund of Knowledge: WNL - Mood Mood: Depressed - Affect Affect: Constricted - Speech Speech: Pressured - Formal Thought Process Formal Thought Process: Delusions, Paranoia, Loosening of associations, Circumstantial - Suicidal Ideation Suicidal Ideation: No - Homicidal Ideation Homicidal Ideation: No Goal/Treatment Plan - Goal/Treatment Plan Need for Continued Stay: Remain at risks for inpatient hospitalization, Severe depression anxiety, Discharge may exacerbated symptoms, Severe functional impairment Progress Toward Problem(s) and Goals/Treatment Plan: Milieu/structure/supportive therapy Medical consult will be considered SW consultation for discharge plan and social issues Med management Invega 6 mg twice a day for psychosis will be continued Ativan 0.5 mg twice a day for anxiety Prolixin 5mg at the nighttime for psychosis pt most likely needs to be on two antipsychotics or switched to clozaril, this lyric writer had prolonged discussion with pt's family last time, they were reluctant , this time pt was educated again, pt does not want to be on clozaril, but at the same time with adjustment of meds her insight might be improving, will educate more Family involvement Follow up on labs Will monitor closely Pt was educated about risk/benefits and alternatives of medications, coping strategies (safety plan, suicide prevention), relapse prevention, importance of follow up with psychiatrist and therapist, stay away from drugs/alcohol/smoking Estimated Date of D/C: 10/06/17
[2017-09-29] MEDS: INVEGA PO SCH (21:27)
--- NOTE | 2017-09-30 10:29 | PCM.PYCHPN ---
Psychiatric Progress Note - Psychiatric Progress Note Patient seen today, length of contact: 30 min Problems Identified/Issues Discussed: I reviewed assessment. Patient is a single 26 yo white female with psychiatric history of schizophrenia, prior psychiatric admissions-most recently 02/2017 before that on 03/2015, in outpatient treatment with Dr. Roa, reportedly adherent with Invega, pt self referred for evaluation of worsening of paranoia and inability to function. I reviewed recent notes and met with patient at bedside. She is fairly cooperative and grooming is fair. Superficially oriented to circumstances. Patient reports that she is doing better but cannot elaborate on her improved symptoms. She is a little guarded, oddly related but not responding to internal stimuli. Compliant with medications and denies side effects, discomfort or pain. as per staff pt is restless but in control on the unit. She is visible on the unit but not interactive. There have been no behavioral issues on the unit thus far. Diagnostic Results: Schizophrenia as per history Rule out schizoaffective disorder bipolar type Medication Change: No ( ) Medical Record Reviewed: Yes Mental Status Examination - Cognitive Function Orientation: Person, Place Memory: Intact Attention: Poor Concentration: Poor Association: Loose Fund of Knowledge: WNL - Mood Mood: Depressed - Affect Affect: Constricted - Speech Speech: Pressured - Formal Thought Process Formal Thought Process: Delusions, Paranoia, Loosening of associations, Circumstantial - Suicidal Ideation Suicidal Ideation: No - Homicidal Ideation Homicidal Ideation: No Goal/Treatment Plan - Goal/Treatment Plan Need for Continued Stay: Remain at risks for inpatient hospitalization, Severe depression anxiety, Discharge may exacerbated symptoms, Severe functional impairment Progress Toward Problem(s) and Goals/Treatment Plan: * c/w current tx and plan * c/w invega, prolixin and ativan * No new weekend labs thus far * Vitals reviewed and noted below: Selected Entries 09/29/17 09/29/17 07:23 16:39 Temperature 97.7 F Pulse Rate 66 74 Respiratory 17 20 Rate Blood Pressure 99/47 L 100/68 Blood Pressure 78 Mean Estimated Date of D/C: 10/06/17
[2017-09-30] MEDS: INVEGA PO SCH (21:01)
--- NOTE | 2017-10-01 10:04 | PCM.PYCHPN ---
Psychiatric Progress Note - Psychiatric Progress Note Patient seen today, length of contact: 30 min Patient Chief Complaint: "better" Problems Identified/Issues Discussed: I reviewed assessment. Patient is a single 26 yo white female with psychiatric history of schizophrenia, prior psychiatric admissions-most recently 02/2017 before that on 03/2015, in outpatient treatment with Dr. Roa, reportedly adherent with Invega, pt self referred for evaluation of worsening of paranoia and inability to function. I reviewed recent notes and met with patient at bedside. She is fairly cooperative and grooming is fair. Superficially oriented to circumstances. Patient reports that she is doing better but really cannot elaborate on her improved symptoms. She is mildly guarded, oddly related but not responding to internal stimuli. She denies any perceptual disturbance. Compliant with medications and denies side effects, discomfort or pain. As per staff patient is anxious and restless. She is visible on the unit, attending and participating in groups. There have been no behavioral issues on the unit thus far. Diagnostic Results: Schizophrenia as per history Rule out schizoaffective disorder bipolar type Medication Change: No ( ) Medical Record Reviewed: Yes Mental Status Examination - Cognitive Function Orientation: Person, Place Memory: Intact Attention: Poor Concentration: Poor Association: Loose Fund of Knowledge: WNL - Mood Mood: Depressed - Affect Affect: Constricted - Speech Speech: Pressured - Formal Thought Process Formal Thought Process: Delusions, Paranoia, Loosening of associations, Circumstantial - Suicidal Ideation Suicidal Ideation: No - Homicidal Ideation Homicidal Ideation: No Goal/Treatment Plan - Goal/Treatment Plan Need for Continued Stay: Remain at risks for inpatient hospitalization, Severe depression anxiety, Discharge may exacerbated symptoms, Severe functional impairment Progress Toward Problem(s) and Goals/Treatment Plan: * c/w current tx and plan * c/w invega, prolixin and ativan * No new weekend labs * Vitals reviewed and noted below: Selected Entries 09/30/17 09/30/17 07:27 16:00 Temperature 97.8 F Pulse Rate 89 71 Respiratory 20 Rate Blood Pressure 108/58 L 100/56 L Estimated Date of D/C: 10/06/17
[2017-10-01] MEDS: INVEGA PO SCH (21:04)
--- NOTE | 2017-10-02 16:58 | PCM.PYCHPN ---
Psychiatric Progress Note - Psychiatric Progress Note Patient seen today, length of contact: 30 min Patient Chief Complaint: "Thank God I am good" Problems Identified/Issues Discussed: Suicide/ homicide prevention, past psychiatric h/o, current psychiatric symptoms , medical problems, risk/benefits and alternatives of medications, medications compliance, coping strategies, substance abuse h/o, relapse prevention, importance of follow up with psychiatrist and therapist, discharge plan. Medical Problems: pt is healthy Diagnostic Results: 09/27/17 05:20 09/27/17 05:20 Lab Results 09/28/17 06:30: RPR Nonreactive 09/28/17 06:30: TSH 3rd Generation 1.34 09/28/17 06:30: Fasting Glucose 84, Triglycerides 57, Cholesterol 161, LDL Cholesterol Direct 62, HDL Cholesterol 69 H 09/27/17 06:21: Urine Opiates Screen Negative, Urine Methadone Screen Negative, Ur Barbiturates Screen Negative, Ur Phencyclidine Scrn Negative, Ur Amphetamines Screen Negative, U Benzodiazepines Scrn Negative, U Oth Cocaine Metabols Negative, U Cannabinoids Screen Negative 09/27/17 06:21: Urine Color Yellow, Urine Appearance Clear, Urine pH 6.0, Ur Specific Harper 1.020, Urine Protein Negative, Urine Glucose (UA) Negative, Urine Ketones Negative, Urine Blood Negative, Urine Nitrate Negative, Urine Bilirubin Negative, Urine Urobilinogen 0.2, Ur Leukocyte Esterase Negative 09/27/17 05:20: Alcohol, Quantitative < 10 09/27/17 05:20: Salicylates < 1 L, Acetaminophen < 10.0 L 09/27/17 05:20: Sodium 140, Potassium 4.1, Chloride 104, Carbon Dioxide 28, Anion Gap 12, BUN 14, Creatinine 0.8, Est GFR ( Amer) > 60, Est GFR (Non- Af Amer) > 60, Random Glucose 93, Calcium 9.1, Magnesium 2.1, Total Bilirubin 0.1 L, AST 22, ALT 38, Alkaline Phosphatase 55, Total Protein 6.2, Albumin 3.6, Globulin 2.6, Albumin/Globulin Ratio 1.4 09/27/17 05:20: WBC 10.8 D, RBC 3.89, Hgb 11.1 L, Hct 33.2 L, MCV 85.3, MCH 28.5, MCHC 33.4, RDW 13.2, Plt Count 291, MPV 10.1, Gran % 72.0 H, Lymph % (Auto ) 19.2 L, Edgar % (Auto) 7.2 H, Eos % (Auto) 1.3 L, Baso % (Auto) 0.3, Gran # 7.77 H, Lymph # (Auto) 2.1, Edgar # (Auto) 0.8 H, Eos # (Auto) 0.1, Baso # (Auto ) 0.03 Vital Signs Temp Pulse Resp BP Pulse Ox 09/29/17 07:23 97.7 F 66 17 99/47 L 09/28/17 21:00 84 121/55 L 09/28/17 00:00 19 09/27/17 22:20 97.4 F L 67 19 101/60 100 09/27/17 21:45 98.1 F 89 18 124/76 99 09/27/17 20:00 98.1 F 89 18 124/76 99 09/27/17 18:21 88 16 120/75 98 09/27/17 16:21 84 16 126/91 H 98 09/27/17 13:38 98.0 F 64 17 114/66 99 09/27/17 09:35 70 16 112/69 98 09/27/17 09:21 61 18 102/61 98 DSM 5 Symptoms Update: Patient is a single 26 yo white female with psychiatric history of schizophrenia , prior psychiatric admissions-most [id number]/2017 before that on 03/2015, in outpatient treatment with Dr. Roa, reportedly adherent with Invega, pt self referred for evaluation of worsening of paranoia, inability to function, patient reported that she feels scared in the house where she lives because she was scared that she will be raped and killed by one of her relatives by the name "Jorge", patient was not able to contract for safety in the emergency room , patient wants her medication to be adjusted, patient signed consent for treatment and was transferred to psychiatric the patient stated on September 27, transfer was uneventful. 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 pt was seen at the treatment team meeting room today, presented with acceptable personal hygiene, good ADLs, pt presented to have some improvement with her manic symptoms, pt is calmer, speech was overproductive, but not pressured./ pt still guarded and paranoid, but no agitation or aggression. as per pt cannot stay with her parents because she has special need sibling and parents have no room for pt. pt was willing to increase prolixin as per staff pt seems to be in manic stage, restless, but no agitation or aggression, compliant with meds. patient tolerates medications well, no side effects observed or reported, aims 0 , no EPS. Impression: Schizophrenia as per history Rule out schizoaffective disorder bipolar type Medication Change: No ( ) Medical Record Reviewed: Yes Mental Status Examination - Cognitive Function Orientation: Person, Place Memory: Intact Attention: Poor Concentration: Poor Association: Loose Fund of Knowledge: WNL - Mood Mood: Depressed - Affect Affect: Constricted - Speech Speech: Pressured - Formal Thought Process Formal Thought Process: Delusions, Paranoia, Loosening of associations, Circumstantial - Suicidal Ideation Suicidal Ideation: No - Homicidal Ideation Homicidal Ideation: No Goal/Treatment Plan - Goal/Treatment Plan Need for Continued Stay: Remain at risks for inpatient hospitalization, Severe depression anxiety, Discharge may exacerbated symptoms, Severe functional impairment Progress Toward Problem(s) and Goals/Treatment Plan: Milieu/structure/supportive therapy Medical consult will be considered consultation for discharge plan and social issues Med management Invega 12 mghs for psychosis Ativan 0.5 mg twice a day for anxiety Prolixin 5mg amhs for psychosis pt most likely needs to be on two antipsychotics or switched to clozaril, this verse writer had prolonged discussion with pt's family last time, they were reluctant , this time pt was educated again, pt does not want to be on clozaril, but at the same time with adjustment of meds her insight might be improving, will educate more Family involvement Follow up on labs Will monitor closely Pt was educated about risk/benefits and alternatives of medications, coping strategies (safety plan, suicide prevention), relapse prevention, importance of follow up with psychiatrist and therapist, stay away from drugs/alcohol/smoking Estimated Date of D/C: 10/06/17
[2017-10-02] MEDS: INVEGA PO SCH (21:03)
[2017-10-03] MEDS ORDERED: PALIPERIDONE 6 MG PO SCH (22:00)
[2017-10-03] MEDS ORDERED: INVEGA PO SCH (22:00)
--- NOTE | 2017-10-04 14:52 | PCM.PYCHPN ---
Psychiatric Progress Note - Psychiatric Progress Note Patient seen today, length of contact: 30 min Patient Chief Complaint: "Thank God I am good" Problems Identified/Issues Discussed: Suicide/ homicide prevention, past psychiatric h/o, current psychiatric symptoms , medical problems, risk/benefits and alternatives of medications, medications compliance, coping strategies, substance abuse h/o, relapse prevention, importance of follow up with psychiatrist and therapist, discharge plan. Medical Problems: pt is healthy Diagnostic Results: 09/27/17 05:20 09/27/17 05:20 Lab Results 09/28/17 06:30: RPR Nonreactive 09/28/17 06:30: TSH 3rd Generation 1.34 09/28/17 06:30: Fasting Glucose 84, Triglycerides 57, Cholesterol 161, LDL Cholesterol Direct 62, HDL Cholesterol 69 H 09/27/17 06:21: Urine Opiates Screen Negative, Urine Methadone Screen Negative, Ur Barbiturates Screen Negative, Ur Phencyclidine Scrn Negative, Ur Amphetamines Screen Negative, U Benzodiazepines Scrn Negative, U Oth Cocaine Metabols Negative, U Cannabinoids Screen Negative 09/27/17 06:21: Urine Color Yellow, Urine Appearance Clear, Urine pH 6.0, Ur Specific [place] 1.020, Urine Protein Negative, Urine Glucose (UA) Negative, Urine Ketones Negative, Urine Blood Negative, Urine Nitrate Negative, Urine Bilirubin Negative, Urine Urobilinogen 0.2, Ur Leukocyte Esterase Negative 09/27/17 05:20: Alcohol, Quantitative < 10 09/27/17 05:20: Salicylates < 1 L, Acetaminophen < 10.0 L 09/27/17 05:20: Sodium 140, Potassium 4.1, Chloride 104, Carbon Dioxide 28, Anion Gap 12, BUN 14, Creatinine 0.8, Est GFR ( Amer) > 60, Est GFR (Non- Af Amer) > 60, Random Glucose 93, Calcium 9.1, Magnesium 2.1, Total Bilirubin 0.1 L, AST 22, ALT 38, Alkaline Phosphatase 55, Total Protein 6.2, Albumin 3.6, Globulin 2.6, Albumin/Globulin Ratio 1.4 09/27/17 05:20: WBC 10.8 D, RBC 3.89, Hgb 11.1 L, Hct 33.2 L, MCV 85.3, MCH 28.5, MCHC 33.4, RDW 13.2, Plt Count 291, MPV 10.1, Gran % 72.0 H, Lymph % (Auto ) 19.2 L, Anderson % (Auto) 7.2 H, Eos % (Auto) 1.3 L, Baso % (Auto) 0.3, Gran # 7.77 H, Lymph # (Auto) 2.1, Anderson # (Auto) 0.8 H, Eos # (Auto) 0.1, Baso # (Auto ) 0.03 Vital Signs Temp Pulse Resp BP Pulse Ox 09/29/17 07:23 97.7 F 66 17 99/47 L 09/28/17 21:00 84 121/55 L 09/28/17 00:00 19 09/27/17 22:20 97.4 F L 67 19 101/60 100 09/27/17 21:45 98.1 F 89 18 124/76 99 09/27/17 20:00 98.1 F 89 18 124/76 99 09/27/17 18:21 88 16 120/75 98 09/27/17 16:21 84 16 126/91 H 98 09/27/17 13:38 98.0 F 64 17 114/66 99 09/27/17 09:35 70 16 112/69 98 09/27/17 09:21 61 18 102/61 98 DSM 5 Symptoms Update: Patient is a single 26 yo white female with psychiatric history of schizophrenia , prior psychiatric admissions-most [id number] before that on 03/2015, in outpatient treatment with Dr. Roa, reportedly adherent with Invega, pt self referred for evaluation of worsening of paranoia, inability to function, patient reported that she feels scared in the house where she lives because she was scared that she will be raped and killed by one of her relatives by the name "Jorge", patient was not able to contract for safety in the emergency room , patient wants her medication to be adjusted, patient signed consent for treatment and was transferred to psychiatric the patient stated on September 27, transfer was uneventful. 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 pt was seen at the hallway today, presented with acceptable personal hygiene, seems to be restless, anxious, paranoid. willing to increase Invega to 15mg, unfortunately pharmacy does not have it available, ordered for tomorrow . pt gave permission to speak to her father. [phone], tx plan was discussed, father was concern abut lack of social group for the pt, pt is not allowed back to [facility] after the last admission. pt's grandmother is still alive (pt was not sure), as per father Jorge is a pt's uncle and pt was paranoid towards him, at the same time father said that there is no threat from his site. pt's father cannot accept pt because they have another child with special needs and "they do not get alone well". as per staff pt is restless, but no agitation or aggression, compliant with meds. patient tolerates medications well, no side effects observed or reported, aims 0 , no EPS. Impression: Schizophrenia as per history Rule out schizoaffective disorder bipolar type Medication Change: No ( ) Medical Record Reviewed: Yes Mental Status Examination - Cognitive Function Orientation: Person, Place Memory: Intact Attention: Poor Concentration: Poor Association: Loose Fund of Knowledge: WNL - Mood Mood: Depressed - Affect Affect: Constricted - Speech Speech: Pressured - Formal Thought Process Formal Thought Process: Delusions, Paranoia, Loosening of associations, Circumstantial - Suicidal Ideation Suicidal Ideation: No - Homicidal Ideation Homicidal Ideation: No Goal/Treatment Plan - Goal/Treatment Plan Need for Continued Stay: Remain at risks for inpatient hospitalization, Severe depression anxiety, Discharge may exacerbated symptoms, Severe functional impairment Progress Toward Problem(s) and Goals/Treatment Plan: Milieu/structure/supportive therapy Medical consult will be considered SW consultation for discharge plan and social issues Med management Invega 15 mghs for psychosis Ativan 0.5 mg twice a day for anxiety Prolixin 5mg amhs for psychosis pt most likely needs to be on two antipsychotics or switched to clozaril, this film writer had prolonged discussion with pt's family last time, they were reluctant , this time pt was educated again, pt does not want to be on clozaril, but at the same time with adjustment of meds her insight might be improving, will educate more Family involvement Follow up on labs Will monitor closely Pt was educated about risk/benefits and alternatives of medications, coping strategies (safety plan, suicide prevention), relapse prevention, importance of follow up with psychiatrist and therapist, stay away from drugs/alcohol/smoking Estimated Date of D/C: 10/06/17
--- NOTE | 2017-10-04 14:57 | PCM.PYCHPN ---
Psychiatric Progress Note - Psychiatric Progress Note Patient seen today, length of contact: 30 min Patient Chief Complaint: "may be I am restless a little...." Problems Identified/Issues Discussed: Suicide/ homicide prevention, past psychiatric h/o, current psychiatric symptoms , medical problems, risk/benefits and alternatives of medications, medications compliance, coping strategies, substance abuse h/o, relapse prevention, importance of follow up with psychiatrist and therapist, discharge plan. Medical Problems: pt is healthy Diagnostic Results: 09/27/17 05:20 09/27/17 05:20 Lab Results 09/28/17 06:30: RPR Nonreactive 09/28/17 06:30: TSH 3rd Generation 1.34 09/28/17 06:30: Fasting Glucose 84, Triglycerides 57, Cholesterol 161, LDL Cholesterol Direct 62, HDL Cholesterol 69 H 09/27/17 06:21: Urine Opiates Screen Negative, Urine Methadone Screen Negative, Ur Barbiturates Screen Negative, Ur Phencyclidine Scrn Negative, Ur Amphetamines Screen Negative, U Benzodiazepines Scrn Negative, U Oth Cocaine Metabols Negative, U Cannabinoids Screen Negative 09/27/17 06:21: Urine Color Yellow, Urine Appearance Clear, Urine pH 6.0, Ur Specific Windsor 1.020, Urine Protein Negative, Urine Glucose (UA) Negative, Urine Ketones Negative, Urine Blood Negative, Urine Nitrate Negative, Urine Bilirubin Negative, Urine Urobilinogen 0.2, Ur Leukocyte Esterase Negative 09/27/17 05:20: Alcohol, Quantitative < 10 09/27/17 05:20: Salicylates < 1 L, Acetaminophen < 10.0 L 09/27/17 05:20: Sodium 140, Potassium 4.1, Chloride 104, Carbon Dioxide 28, Anion Gap 12, BUN 14, Creatinine 0.8, Est GFR ( Amer) > 60, Est GFR (Non- Af Amer) > 60, Random Glucose 93, Calcium 9.1, Magnesium 2.1, Total Bilirubin 0.1 L, AST 22, ALT 38, Alkaline Phosphatase 55, Total Protein 6.2, Albumin 3.6, Globulin 2.6, Albumin/Globulin Ratio 1.4 09/27/17 05:20: WBC 10.8 D, RBC 3.89, Hgb 11.1 L, Hct 33.2 L, MCV 85.3, MCH 28.5, MCHC 33.4, RDW 13.2, Plt Count 291, MPV 10.1, Gran % 72.0 H, Lymph % (Auto ) 19.2 L, Rush % (Auto) 7.2 H, Eos % (Auto) 1.3 L, Baso % (Auto) 0.3, Gran # 7.77 H, Lymph # (Auto) 2.1, Rush # (Auto) 0.8 H, Eos # (Auto) 0.1, Baso # (Auto ) 0.03 Vital Signs Temp Pulse Resp BP Pulse Ox 09/29/17 07:23 97.7 F 66 17 99/47 L 09/28/17 21:00 84 121/55 L 09/28/17 00:00 19 09/27/17 22:20 97.4 F L 67 19 101/60 100 09/27/17 21:45 98.1 F 89 18 124/76 99 09/27/17 20:00 98.1 F 89 18 124/76 99 09/27/17 18:21 88 16 120/75 98 09/27/17 16:21 84 16 126/91 H 98 09/27/17 13:38 98.0 F 64 17 114/66 99 09/27/17 09:35 70 16 112/69 98 09/27/17 09:21 61 18 102/61 98 Temp Pulse Resp BP Pulse Ox 98.0 F 62 20 103/57 L 100 10/04/17 07:00 10/04/17 07:00 10/04/17 07:00 10/04/17 07:00 09/27/17 22:20 DSM 5 Symptoms Update: Patient is a single 26 yo white female with psychiatric history of schizophrenia , prior psychiatric admissions-most [id number] before that on 03/2015, in outpatient treatment with Dr. Roa, reportedly adherent with Invega, pt self referred for evaluation of worsening of paranoia, inability to function, patient reported that she feels scared in the house where she lives because she was scared that she will be raped and killed by one of her relatives by the name "Jorge", patient was not able to contract for safety in the emergency room , patient wants her medication to be adjusted, patient signed consent for treatment and was transferred to psychiatric the patient stated on September 27, transfer was uneventful. 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 pt was seen at the hallway today, presented with acceptable personal hygiene, seems to be restless, anxious, paranoid, pt also was irritable, going back and forth, pt also appeared to be angry, pt was able to hold conversation, pt seems to be akathesic, this story writer offered klonopin, but pt said "ativan works better ", pt also was willing to increase dose of Prolixin. last admission pt was d/c on Invega 15mg hs, Prolixin 8mg po tid. Invega was delivered today. pt gave permission to speak to her father 10/03/17, see notes. as per staff pt is restless, but no agitation or aggression, compliant with meds. patient tolerates medications well, no side effects observed or reported, aims 0 , no EPS. Impression: Schizophrenia as per history Rule out schizoaffective disorder bipolar type Medication Change: Yes (ativan added, prolixin increased, Invega increased) Medical Record Reviewed: Yes Mental Status Examination - Cognitive Function Orientation: Person, Place Memory: Intact Attention: Poor Concentration: Poor Association: Loose Fund of Knowledge: WNL - Mood Mood: Depressed - Affect Affect: Constricted - Speech Speech: Pressured - Formal Thought Process Formal Thought Process: Delusions, Paranoia, Loosening of associations, Circumstantial - Suicidal Ideation Suicidal Ideation: No - Homicidal Ideation Homicidal Ideation: No Goal/Treatment Plan - Goal/Treatment Plan Need for Continued Stay: Remain at risks for inpatient hospitalization, Severe depression anxiety, Discharge may exacerbated symptoms, Severe functional impairment Progress Toward Problem(s) and Goals/Treatment Plan: Milieu/structure/supportive therapy Medical consult will be considered SW consultation for discharge plan and social issues Med management Invega 15 mghs for psychosis Ativan 0.5 mg twice a day for anxiety Prolixin 5mg am 10mg hs for psychosis pt most likely needs to be on two antipsychotics or switched to clozaril, this story writer had prolonged discussion with pt's family last time, they were reluctant , this time pt was educated again, pt does not want to be on clozaril, but at the same time with adjustment of meds her insight might be improving, will educate more Family involvement Follow up on labs Will monitor closely Pt was educated about risk/benefits and alternatives of medications, coping strategies (safety plan, suicide prevention), relapse prevention, importance of follow up with psychiatrist and therapist, stay away from drugs/alcohol/smoking Estimated Date of D/C: 10/06/17
[2017-10-04] MEDS: PALIPERIDONE 9 MG PO SCH (21:23)
[2017-10-04] MEDS ORDERED: Home Med 1 UNIT PO SCH (22:00)
[2017-10-04] MEDS ORDERED: INVEGA 6 MG PO SCH ×2 (22:00)
--- NOTE | 2017-10-05 17:10 | PCM.PYCHPN ---
Psychiatric Progress Note - Psychiatric Progress Note Patient seen today, length of contact: 30 min Patient Chief Complaint: "I like prolixin, it seems to be working..." Problems Identified/Issues Discussed: Suicide/ homicide prevention, past psychiatric h/o, current psychiatric symptoms , medical problems, risk/benefits and alternatives of medications, medications compliance, coping strategies, substance abuse h/o, relapse prevention, importance of follow up with psychiatrist and therapist, discharge plan. Medical Problems: pt is healthy Diagnostic Results: 09/27/17 05:20 09/27/17 05:20 Lab Results 09/28/17 06:30: RPR Nonreactive 09/28/17 06:30: TSH 3rd Generation 1.34 09/28/17 06:30: Fasting Glucose 84, Triglycerides 57, Cholesterol 161, LDL Cholesterol Direct 62, HDL Cholesterol 69 H 09/27/17 06:21: Urine Opiates Screen Negative, Urine Methadone Screen Negative, Ur Barbiturates Screen Negative, Ur Phencyclidine Scrn Negative, Ur Amphetamines Screen Negative, U Benzodiazepines Scrn Negative, U Oth Cocaine Metabols Negative, U Cannabinoids Screen Negative 09/27/17 06:21: Urine Color Yellow, Urine Appearance Clear, Urine pH 6.0, Ur Specific [place] 1.020, Urine Protein Negative, Urine Glucose (UA) Negative, Urine Ketones Negative, Urine Blood Negative, Urine Nitrate Negative, Urine Bilirubin Negative, Urine Urobilinogen 0.2, Ur Leukocyte Esterase Negative 09/27/17 05:20: Alcohol, Quantitative < 10 09/27/17 05:20: Salicylates < 1 L, Acetaminophen < 10.0 L 09/27/17 05:20: Sodium 140, Potassium 4.1, Chloride 104, Carbon Dioxide 28, Anion Gap 12, BUN 14, Creatinine 0.8, Est GFR ( Amer) > 60, Est GFR (Non- Af Amer) > 60, Random Glucose 93, Calcium 9.1, Magnesium 2.1, Total Bilirubin 0.1 L, AST 22, ALT 38, Alkaline Phosphatase 55, Total Protein 6.2, Albumin 3.6, Globulin 2.6, Albumin/Globulin Ratio 1.4 09/27/17 05:20: WBC 10.8 D, RBC 3.89, Hgb 11.1 L, Hct 33.2 L, MCV 85.3, MCH 28.5, MCHC 33.4, RDW 13.2, Plt Count 291, MPV 10.1, Gran % 72.0 H, Lymph % (Auto ) 19.2 L, [place] % (Auto) 7.2 H, Eos % (Auto) 1.3 L, Baso % (Auto) 0.3, Gran # 7.77 H, Lymph # (Auto) 2.1, [place] # (Auto) 0.8 H, Eos # (Auto) 0.1, Baso # (Auto ) 0.03 Vital Signs Temp Pulse Resp BP Pulse Ox 09/29/17 07:23 97.7 F 66 17 99/47 L 09/28/17 21:00 84 121/55 L 09/28/17 00:00 19 09/27/17 22:20 97.4 F L 67 19 101/60 100 09/27/17 21:45 98.1 F 89 18 124/76 99 09/27/17 20:00 98.1 F 89 18 124/76 99 09/27/17 18:21 88 16 120/75 98 09/27/17 16:21 84 16 126/91 H 98 09/27/17 13:38 98.0 F 64 17 114/66 99 09/27/17 09:35 70 16 112/69 98 09/27/17 09:21 61 18 102/61 98 Temp Pulse Resp BP Pulse Ox 98.0 F 62 20 103/57 L 100 10/04/17 07:00 10/04/17 07:00 10/04/17 07:00 10/04/17 07:00 09/27/17 22:20 DSM 5 Symptoms Update: Patient is a single 26 yo white female with psychiatric history of schizophrenia , prior psychiatric admissions-most [id number] before that on 03/2015, in outpatient treatment with Dr. Roa, reportedly adherent with Invega, pt self referred for evaluation of worsening of paranoia, inability to function, patient reported that she feels scared in the house where she lives because she was scared that she will be raped and killed by one of her relatives by the name "Jorge", patient was not able to contract for safety in the emergency room , patient wants her medication to be adjusted, patient signed consent for treatment and was transferred to psychiatric the patient stated on September 27, transfer was uneventful. 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 pt was seen at the hallway today, presented with acceptable personal hygiene, seems to be calmer, but anxious, paranoid, pt was started on prolixin, pt reported that she likes this medication better than trilaphon, correctiton to my previous note, pt was on trilafon but not prolixin in the past. pt said that "I did not like trilafon that is why I discontinued it, I am fine with prolixin , it seems to be working" last admission pt was d/c on Invega 15mg hs, Trilafon 8mg po tid. pt gave permission to speak to her father 10/03/17, see notes. as per staff pt is restless, but no agitation or aggression, compliant with meds. patient tolerates medications well, no side effects observed or reported, aims 0 , no EPS. Impression: Schizophrenia as per history Rule out schizoaffective disorder bipolar type Medication Change: Yes (ativan increased) Medical Record Reviewed: Yes Mental Status Examination - Cognitive Function Orientation: Person, Place Memory: Intact Attention: Poor (some improvement) Concentration: Poor Association: Loose Fund of Knowledge: WNL - Mood Mood: Depressed - Affect Affect: Constricted - Speech Speech: Pressured - Formal Thought Process Formal Thought Process: Delusions (some improvement), Paranoia (some improvement ), Loosening of associations, Circumstantial - Suicidal Ideation Suicidal Ideation: No - Homicidal Ideation Homicidal Ideation: No Goal/Treatment Plan - Goal/Treatment Plan Need for Continued Stay: Remain at risks for inpatient hospitalization, Severe depression anxiety, Discharge may exacerbated symptoms, Severe functional impairment Progress Toward Problem(s) and Goals/Treatment Plan: Milieu/structure/supportive therapy Medical consult will be considered SW consultation for discharge plan and social issues Med management Invega 15 mghs for psychosis Ativan 1mg twice a day for anxiety and restlessness Prolixin 5mg am 10mg hs for psychosis pt most likely needs to be on two antipsychotics or switched to clozaril, this senior copywriter had prolonged discussion with pt's family last time, they were reluctant , this time pt was educated again, pt does not want to be on clozaril, but at the same time with adjustment of meds her insight might be improving, will educate more Family involvement Follow up on labs Will monitor closely Pt was educated about risk/benefits and alternatives of medications, coping strategies (safety plan, suicide prevention), relapse prevention, importance of follow up with psychiatrist and therapist, stay away from drugs/alcohol/smoking Estimated Date of D/C: 10/10/17
[2017-10-05] MEDS: INVEGA 6 MG PO SCH (21:24)
[2017-10-05] MEDS: PALIPERIDONE 9 MG PO SCH (21:24)
--- NOTE | 2017-10-06 10:15 | PCM.BM ---
<Pedro Banda - Last Filed: 10/06/17 10:13> Treatment Plan Problems - Problems identified on initial assessmt Auditory Hallucinations Date Initiated: 09/28/17 Time Initiated: 22:15 Assessment reference: NA Status: Active Priority: 1 Altered Thought Process Date Initiated: 09/28/17 Time Initiated: 22:15 Priority: 2 Ineffective Family Coping: Compromised Date Initiated: 09/28/17 Time Initiated: 22:15 Assessment reference: NA Status: Active Priority: 3 Ineffective Coping Date Initiated: 09/28/17 Time Initiated: 22:15 Assessment reference: NA Status: Active Priority: 4 Treatment assets and liabiliti Patient Assests: educated, self-reliant, ADL independent, physically healthy, strong mini Patient Liabilities: relationship conflicts - Milieu Protocol Maintain good personal hygiene: daily Encourage regular showers, every shift Remind patient to perform daily oral care, every shift Assist patient to perform ADL's Maintain personal safety: every shift Educate patient to report safety concerns to staff, every shift Monitor environment for contraband/sharps Medication safety: Monitor for expected outcome, potential side effects: every shift, Assess barriers to learning: every shift, Assess readiness for medication education: every shift Milieu Narrative: Milieu/structure/supportive therapy Medical consult will be considered SW consultation for discharge plan and social issues Med management Invega 15 mghs for psychosis Ativan 1mg twice a day for anxiety and restlessness Prolixin 5mg am 10mg hs for psychosis pt most likely needs to be on two antipsychotics or switched to clozaril, this senior grant writer had prolonged discussion with pt's family last time, they were reluctant , this time pt was educated again, pt does not want to be on clozaril, but at the same time with adjustment of meds her insight might be improving, will educate more Family involvement Follow up on labs Will monitor closely Pt was educated about risk/benefits and alternatives of medications, coping strategies (safety plan, suicide prevention), relapse prevention, importance of follow up with psychiatrist and therapist, stay away from drugs/alcohol/smoking Family Contact Family involvement: Family/SO is involved Family contact: Patient agrees to contact Family contact name: Stefanie Allen(mother) Family contacted how many times per week?: 2 - Goals for Treatment Patient goals for treatment: safety at home Discharge/Continuing Care - Education Needs Education Needs: Family Diagnosis/Disease Process, Family Coping Skills, Family Placement options, Family Community resources, Family Aftercare Safety Plan, Patient Medication, Patient Diagnosis/Disease Process, Patient Coping Skills, Patient Anger Management skills, Patient Placement options, Patient Community resources, Patient Activities of Daily Living, Patient Nutrition, Patient Health Practices/Safety, Patient Personal Hygiene/Grooming, Patient Aftercare Safety Plan - Discharge Discharge Criteria: Tolerates medication w/o severe side effects, Free of paranoid thoughts - Treatment Team Participation Patient/Family/SO Statement: Milieu/structure/supportive therapy Medical consult will be considered SW consultation for discharge plan and social issues Med management Invega 15 mghs for psychosis Ativan 1mg twice a day for anxiety and restlessness Prolixin 5mg am 10mg hs for psychosis pt most likely needs to be on two antipsychotics or switched to clozaril, this senior grant writer had prolonged discussion with pt's family last time, they were reluctant , this time pt was educated again, pt does not want to be on clozaril, but at the same time with adjustment of meds her insight might be improving, will educate more Family involvement Follow up on labs Will monitor closely Pt was educated about risk/benefits and alternatives of medications, coping strategies (safety plan, suicide prevention), relapse prevention, importance of follow up with psychiatrist and therapist, stay away from drugs/alcohol/smoking Treatment Plan Review - Problem Auditory Hallucinations Time Initiated: 22:15 Progress toward outcomes: improved Altered Thought Process Time Initiated: 22:15 Progress toward outcomes: improved Ineffective Family Coping: Compromised Time Initiated: 22:15 Progress toward outcomes: improved Ineffective Coping Time Initiated: 22:15 Progress toward outcomes: improved <Monica Ahn A - Last Filed: 10/06/17 13:51> - Diagnosis (1) Schizophrenia Status: Chronic Interventions: 10/06/17 13:51 slowly improving tolerating medications well Family involved primary psychiatrist contacted clozaril is not an option d/c planning DVR program IOP program <Mary Fredeirck Y - Last Filed: 10/06/17 14:33> Family Contact Family involvement: Family/SO is involved Family contact: Patient agrees to contact Family contact name: Stefanie Allen(mother) Family contacted how many times per week?: 2
--- NOTE | 2017-10-06 14:00 | PCM.PYCHPN ---
Psychiatric Progress Note - Psychiatric Progress Note Patient seen today, length of contact: 30 min Patient Chief Complaint: "I want you to speak to my mother and my psychiatrist, my mother is a goo mother but she is very intense, uh, she is, what I was talking about?" Problems Identified/Issues Discussed: Suicide/ homicide prevention, past psychiatric h/o, current psychiatric symptoms , medical problems, risk/benefits and alternatives of medications, medications compliance, coping strategies, substance abuse h/o, relapse prevention, importance of follow up with psychiatrist and therapist, discharge plan. Medical Problems: pt is healthy Diagnostic Results: 09/27/17 05:20 09/27/17 05:20 Lab Results 09/28/17 06:30: RPR Nonreactive 09/28/17 06:30: TSH 3rd Generation 1.34 09/28/17 06:30: Fasting Glucose 84, Triglycerides 57, Cholesterol 161, LDL Cholesterol Direct 62, HDL Cholesterol 69 H 09/27/17 06:21: Urine Opiates Screen Negative, Urine Methadone Screen Negative, Ur Barbiturates Screen Negative, Ur Phencyclidine Scrn Negative, Ur Amphetamines Screen Negative, U Benzodiazepines Scrn Negative, U Oth Cocaine Metabols Negative, U Cannabinoids Screen Negative 09/27/17 06:21: Urine Color Yellow, Urine Appearance Clear, Urine pH 6.0, Ur Specific [place] 1.020, Urine Protein Negative, Urine Glucose (UA) Negative, Urine Ketones Negative, Urine Blood Negative, Urine Nitrate Negative, Urine Bilirubin Negative, Urine Urobilinogen 0.2, Ur Leukocyte Esterase Negative 09/27/17 05:20: Alcohol, Quantitative < 10 09/27/17 05:20: Salicylates < 1 L, Acetaminophen < 10.0 L 09/27/17 05:20: Sodium 140, Potassium 4.1, Chloride 104, Carbon Dioxide 28, Anion Gap 12, BUN 14, Creatinine 0.8, Est GFR ( Amer) > 60, Est GFR (Non- Af Amer) > 60, Random Glucose 93, Calcium 9.1, Magnesium 2.1, Total Bilirubin 0.1 L, AST 22, ALT 38, Alkaline Phosphatase 55, Total Protein 6.2, Albumin 3.6, Globulin 2.6, Albumin/Globulin Ratio 1.4 09/27/17 05:20: WBC 10.8 D, RBC 3.89, Hgb 11.1 L, Hct 33.2 L, MCV 85.3, MCH 28.5, MCHC 33.4, RDW 13.2, Plt Count 291, MPV 10.1, Gran % 72.0 H, Lymph % (Auto ) 19.2 L, [place] % (Auto) 7.2 H, Eos % (Auto) 1.3 L, Baso % (Auto) 0.3, Gran # 7.77 H, Lymph # (Auto) 2.1, [place] # (Auto) 0.8 H, Eos # (Auto) 0.1, Baso # (Auto ) 0.03 Vital Signs Temp Pulse Resp BP Pulse Ox 09/29/17 07:23 97.7 F 66 17 99/47 L 09/28/17 21:00 84 121/55 L 09/28/17 00:00 19 09/27/17 22:20 97.4 F L 67 19 101/60 100 09/27/17 21:45 98.1 F 89 18 124/76 99 09/27/17 20:00 98.1 F 89 18 124/76 99 09/27/17 18:21 88 16 120/75 98 09/27/17 16:21 84 16 126/91 H 98 09/27/17 13:38 98.0 F 64 17 114/66 99 09/27/17 09:35 70 16 112/69 98 09/27/17 09:21 61 18 102/61 98 Temp Pulse Resp BP Pulse Ox 98.0 F 62 20 103/57 L 100 10/04/17 07:00 10/04/17 07:00 10/04/17 07:00 10/04/17 07:00 09/27/17 22:20 DSM 5 Symptoms Update: Patient is a single 26 yo white female with psychiatric history of schizophrenia , prior psychiatric admissions-most [id number] before that on 03/2015, in outpatient treatment with Dr. Roa, reportedly adherent with Invega, pt self referred for evaluation of worsening of paranoia, inability to function, patient reported that she feels scared in the house where she lives because she was scared that she will be raped and killed by one of her relatives by the name "Jorge", patient was not able to contract for safety in the emergency room , patient wants her medication to be adjusted, patient signed consent for treatment and was transferred to psychiatric the patient stated on September 27, transfer was uneventful. 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 pt was seen at the treatment team meeting, pt is still disorganized, difficulties to stay focused, overproductive speech. pt asked ativan to be decreased. pt also reported to "overdose on invega yesterday", not true pt took her hs dose of medications, no overdosing. pt was offered clozaril, she wanted to discuss it with her family and psychiatrist . [phone] called this technical writer, tx plan was discussed, as per , pt is closer to her baseline, pt will be not a good candidate for clozaril as of now because pt will be not monitored in the community because no good life structure. pt's family contacted this technical writer, this technical writer called back to pt's mother, [phone] left her a message, awaiting for the call back. spoke to pt's father 10/03/17, see notes. as per staff pt is restless, but no agitation or aggression, compliant with meds. patient tolerates medications well, no side effects observed or reported, aims 0 , no EPS. Impression: Schizophrenia as per history Rule out schizoaffective disorder bipolar type Medication Change: Yes (ativan increased) Medical Record Reviewed: Yes Mental Status Examination - Cognitive Function Orientation: Person, Place Memory: Intact Attention: Poor (some improvement) Concentration: Poor Association: Loose Fund of Knowledge: WNL - Mood Mood: Depressed - Affect Affect: Constricted - Speech Speech: Pressured - Formal Thought Process Formal Thought Process: Delusions (some improvement), Paranoia (some improvement ), Loosening of associations, Circumstantial - Suicidal Ideation Suicidal Ideation: No - Homicidal Ideation Homicidal Ideation: No Goal/Treatment Plan - Goal/Treatment Plan Need for Continued Stay: Remain at risks for inpatient hospitalization, Severe depression anxiety, Discharge may exacerbated symptoms, Severe functional impairment Progress Toward Problem(s) and Goals/Treatment Plan: Milieu/structure/supportive therapy Medical consult will be considered SW consultation for discharge plan and social issues Med management Invega 15 mghs for psychosis Ativan 0.5mg twice a day for anxiety and restlessness Prolixin 5mg am 10mg hs for psychosis pt most likely needs to be on two antipsychotics or switched to clozaril, this technical writer had prolonged discussion with pt's family last time, they were reluctant , this time pt was educated again, pt does not want to be on clozaril, but at the same time with adjustment of meds her insight might be improving, will educate more Family involvement Follow up on labs Will monitor closely Pt was educated about risk/benefits and alternatives of medications, coping strategies (safety plan, suicide prevention), relapse prevention, importance of follow up with psychiatrist and therapist, stay away from drugs/alcohol/smoking Estimated Date of D/C: 10/10/17
[2017-10-06] MEDS: INVEGA 6 MG PO SCH (21:09)
[2017-10-06] MEDS: PALIPERIDONE 9 MG PO SCH (21:09)
--- NOTE | 2017-10-07 12:13 | PCM.PYCHPN ---
Psychiatric Progress Note - Psychiatric Progress Note Patient seen today, length of contact: 30 min Patient Chief Complaint: "do I look good to you?" Problems Identified/Issues Discussed: Suicide/ homicide prevention, past psychiatric h/o, current psychiatric symptoms , medical problems, risk/benefits and alternatives of medications, medications compliance, coping strategies, substance abuse h/o, relapse prevention, importance of follow up with psychiatrist and therapist, discharge plan. Medical Problems: pt is healthy Diagnostic Results: 09/27/17 05:20 09/27/17 05:20 Lab Results 09/28/17 06:30: RPR Nonreactive 09/28/17 06:30: TSH 3rd Generation 1.34 09/28/17 06:30: Fasting Glucose 84, Triglycerides 57, Cholesterol 161, LDL Cholesterol Direct 62, HDL Cholesterol 69 H 09/27/17 06:21: Urine Opiates Screen Negative, Urine Methadone Screen Negative, Ur Barbiturates Screen Negative, Ur Phencyclidine Scrn Negative, Ur Amphetamines Screen Negative, U Benzodiazepines Scrn Negative, U Oth Cocaine Metabols Negative, U Cannabinoids Screen Negative 09/27/17 06:21: Urine Color Yellow, Urine Appearance Clear, Urine pH 6.0, Ur Specific [place] 1.020, Urine Protein Negative, Urine Glucose (UA) Negative, Urine Ketones Negative, Urine Blood Negative, Urine Nitrate Negative, Urine Bilirubin Negative, Urine Urobilinogen 0.2, Ur Leukocyte Esterase Negative 09/27/17 05:20: Alcohol, Quantitative < 10 09/27/17 05:20: Salicylates < 1 L, Acetaminophen < 10.0 L 09/27/17 05:20: Sodium 140, Potassium 4.1, Chloride 104, Carbon Dioxide 28, Anion Gap 12, BUN 14, Creatinine 0.8, Est GFR ( Amer) > 60, Est GFR (Non- Af Amer) > 60, Random Glucose 93, Calcium 9.1, Magnesium 2.1, Total Bilirubin 0.1 L, AST 22, ALT 38, Alkaline Phosphatase 55, Total Protein 6.2, Albumin 3.6, Globulin 2.6, Albumin/Globulin Ratio 1.4 09/27/17 05:20: WBC 10.8 D, RBC 3.89, Hgb 11.1 L, Hct 33.2 L, MCV 85.3, MCH 28.5, MCHC 33.4, RDW 13.2, Plt Count 291, MPV 10.1, Gran % 72.0 H, Lymph % (Auto ) 19.2 L, [place] % (Auto) 7.2 H, Eos % (Auto) 1.3 L, Baso % (Auto) 0.3, Gran # 7.77 H, Lymph # (Auto) 2.1, [place] # (Auto) 0.8 H, Eos # (Auto) 0.1, Baso # (Auto ) 0.03 Vital Signs Temp Pulse Resp BP Pulse Ox 09/29/17 07:23 97.7 F 66 17 99/47 L 09/28/17 21:00 84 121/55 L 09/28/17 00:00 19 09/27/17 22:20 97.4 F L 67 19 101/60 100 09/27/17 21:45 98.1 F 89 18 124/76 99 09/27/17 20:00 98.1 F 89 18 124/76 99 09/27/17 18:21 88 16 120/75 98 09/27/17 16:21 84 16 126/91 H 98 09/27/17 13:38 98.0 F 64 17 114/66 99 09/27/17 09:35 70 16 112/69 98 09/27/17 09:21 61 18 102/61 98 Temp Pulse Resp BP Pulse Ox 98.0 F 62 20 103/57 L 100 10/04/17 07:00 10/04/17 07:00 10/04/17 07:00 10/04/17 07:00 09/27/17 22:20 Temp Pulse Resp BP Pulse Ox 97.7 F 64 14 94/58 L 100 10/07/17 06:31 10/07/17 06:31 10/07/17 06:31 10/07/17 06:31 09/27/17 22:20 DSM 5 Symptoms Update: Patient is a single 26 yo white female with psychiatric history of schizophrenia , prior psychiatric admissions-most [id number] before that on 03/2015, in outpatient treatment with Dr. Roa, reportedly adherent with Invega, pt self referred for evaluation of worsening of paranoia, inability to function, patient reported that she feels scared in the house where she lives because she was scared that she will be raped and killed by one of her relatives by the name "Jorge", patient was not able to contract for safety in the emergency room , patient wants her medication to be adjusted, patient signed consent for treatment and was transferred to psychiatric the patient stated on September 27, transfer was uneventful. 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 pt was seen at the hallway, pt presented better, good hygiene, pt was observed talking over the phone with "FLORIDA Mckinnon, it is you, do you still like me?", then pt appeared to be brighter, was smiling. pt said that she does not want to take ativan anymore. pt asked about aftercare plan. discussed DTP at [facility]. 10/06/17: [phone] called this expert medical writer, tx plan was discussed, as per , pt is closer to her baseline, pt will be not a good candidate for clozaril as of now because pt will be not monitored in the community because no good life structure. 10/06/17 pt's family contacted this expert medical writer, this expert medical writer called back to pt's mother, [phone] left her a message, awaiting for the call back. 10/03/17 spoke to pt's father, see notes. as per staff pt is calmer no agitation or aggression, compliant with meds. patient tolerates medications well, no side effects observed or reported, aims 0 , no EPS. Impression: Schizophrenia as per history Rule out schizoaffective disorder bipolar type Medication Change: Yes (ativan d/c) Medical Record Reviewed: Yes Consults ordered or reviewed: pt is healthy, was seen by medical team at ED Mental Status Examination - Cognitive Function Orientation: Person, Place Memory: Intact Attention: Poor (some improvement) Concentration: Poor (some improvement) Association: Loose (some improvement) Fund of Knowledge: WNL - Mood Mood: Depressed ("I feel better, thank God") - Affect Affect: Constricted (but more reactive) - Speech Speech: Pressured - Formal Thought Process Formal Thought Process: Delusions (some improvement), Paranoia (some improvement ), Loosening of associations, Circumstantial - Suicidal Ideation Suicidal Ideation: No - Homicidal Ideation Homicidal Ideation: No Goal/Treatment Plan - Goal/Treatment Plan Need for Continued Stay: Remain at risks for inpatient hospitalization, Severe depression anxiety, Discharge may exacerbated symptoms, Severe functional impairment Progress Toward Problem(s) and Goals/Treatment Plan: Milieu/structure/supportive therapy Medical consult will be considered SW consultation for discharge plan and social issues Med management Invega 15 mghs for psychosis Ativan 0.5mg twice a day d/c Prolixin 5mg am 10mg hs for psychosis clozaril was discussed with pt's family and outpatient psychiatrist 10/06/17, will not initiate it Family involvement Follow up on labs Will monitor closely Pt was educated about risk/benefits and alternatives of medications, coping strategies (safety plan, suicide prevention), relapse prevention, importance of follow up with psychiatrist and therapist, stay away from drugs/alcohol/smoking Estimated Date of D/C: 10/10/17
[2017-10-07] MEDS: INVEGA 6 MG PO SCH (21:25)
[2017-10-07] MEDS: PALIPERIDONE 9 MG PO SCH (21:25)
[2017-10-08 06:58] VITALS: O2SAT 99
--- NOTE | 2017-10-08 10:09 | PCM.PYCHPN ---
Psychiatric Progress Note - Psychiatric Progress Note Patient seen today, length of contact: 30 min Patient Chief Complaint: "I feel good thank God" Problems Identified/Issues Discussed: Suicide/ homicide prevention, past psychiatric h/o, current psychiatric symptoms , medical problems, risk/benefits and alternatives of medications, medications compliance, coping strategies, substance abuse h/o, relapse prevention, importance of follow up with psychiatrist and therapist, discharge plan. Medical Problems: pt is healthy Diagnostic Results: 09/27/17 05:20 09/27/17 05:20 Lab Results 09/28/17 06:30: RPR Nonreactive 09/28/17 06:30: TSH 3rd Generation 1.34 09/28/17 06:30: Fasting Glucose 84, Triglycerides 57, Cholesterol 161, LDL Cholesterol Direct 62, HDL Cholesterol 69 H 09/27/17 06:21: Urine Opiates Screen Negative, Urine Methadone Screen Negative, Ur Barbiturates Screen Negative, Ur Phencyclidine Scrn Negative, Ur Amphetamines Screen Negative, U Benzodiazepines Scrn Negative, U Oth Cocaine Metabols Negative, U Cannabinoids Screen Negative 09/27/17 06:21: Urine Color Yellow, Urine Appearance Clear, Urine pH 6.0, Ur Specific [place] 1.020, Urine Protein Negative, Urine Glucose (UA) Negative, Urine Ketones Negative, Urine Blood Negative, Urine Nitrate Negative, Urine Bilirubin Negative, Urine Urobilinogen 0.2, Ur Leukocyte Esterase Negative 09/27/17 05:20: Alcohol, Quantitative < 10 09/27/17 05:20: Salicylates < 1 L, Acetaminophen < 10.0 L 09/27/17 05:20: Sodium 140, Potassium 4.1, Chloride 104, Carbon Dioxide 28, Anion Gap 12, BUN 14, Creatinine 0.8, Est GFR ( Amer) > 60, Est GFR (Non- Af Amer) > 60, Random Glucose 93, Calcium 9.1, Magnesium 2.1, Total Bilirubin 0.1 L, AST 22, ALT 38, Alkaline Phosphatase 55, Total Protein 6.2, Albumin 3.6, Globulin 2.6, Albumin/Globulin Ratio 1.4 09/27/17 05:20: WBC 10.8 D, RBC 3.89, Hgb 11.1 L, Hct 33.2 L, MCV 85.3, MCH 28.5, MCHC 33.4, RDW 13.2, Plt Count 291, MPV 10.1, Gran % 72.0 H, Lymph % (Auto ) 19.2 L, [place] % (Auto) 7.2 H, Eos % (Auto) 1.3 L, Baso % (Auto) 0.3, Gran # 7.77 H, Lymph # (Auto) 2.1, [place] # (Auto) 0.8 H, Eos # (Auto) 0.1, Baso # (Auto ) 0.03 Vital Signs Temp Pulse Resp BP Pulse Ox 09/29/17 07:23 97.7 F 66 17 99/47 L 09/28/17 21:00 84 121/55 L 09/28/17 00:00 19 09/27/17 22:20 97.4 F L 67 19 101/60 100 09/27/17 21:45 98.1 F 89 18 124/76 99 09/27/17 20:00 98.1 F 89 18 124/76 99 09/27/17 18:21 88 16 120/75 98 09/27/17 16:21 84 16 126/91 H 98 09/27/17 13:38 98.0 F 64 17 114/66 99 09/27/17 09:35 70 16 112/69 98 09/27/17 09:21 61 18 102/61 98 Temp Pulse Resp BP Pulse Ox 98.0 F 62 20 103/57 L 100 10/04/17 07:00 10/04/17 07:00 10/04/17 07:00 10/04/17 07:00 09/27/17 22:20 Temp Pulse Resp BP Pulse Ox 97.7 F 64 14 94/58 L 100 10/07/17 06:31 10/07/17 06:31 10/07/17 06:31 10/07/17 06:31 09/27/17 22:20 DSM 5 Symptoms Update: Patient is a single 26 yo white female with psychiatric history of schizophrenia , prior psychiatric admissions-most /2017 before that on 03/2015, in outpatient treatment with Dr. Roa, reportedly adherent with Invega, pt self referred for evaluation of worsening of paranoia, inability to function, patient reported that she feels scared in the house where she lives because she was scared that she will be raped and killed by one of her relatives by the name "Jorge", patient was not able to contract for safety in the emergency room , patient wants her medication to be adjusted, patient signed consent for treatment and was transferred to psychiatric the patient stated on September 27, transfer was uneventful. 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 pt was seen at the [place], pt presented better, good hygiene, smiling today, seems to be in good mood. Discussed DTP at [facility]. pt denied v/a/t hallucinations, pt presented less paranoid, more organized. 10/06/17: [phone] called this ticket writer, tx plan was discussed, as per , pt is closer to her baseline, pt will be not a good candidate for clozaril as of now because pt will be not monitored in the community because no good life structure. 10/06/17 pt's family contacted this ticket writer, this ticket writer called back to pt's mother, [phone] left her a message, awaiting for the call back. 10/03/17 spoke to pt's father, see notes. as per staff pt is calmer no agitation or aggression, compliant with meds. patient tolerates medications well, no side effects observed or reported, aims 0 , no EPS. Impression: Schizophrenia as per history Rule out schizoaffective disorder bipolar type Medication Change: Yes (ativan d/c) Medical Record Reviewed: Yes Mental Status Examination - Cognitive Function Orientation: Person, Place Memory: Intact Attention: Poor (some improvement) Concentration: Poor (some improvement) Association: Loose (some improvement) Fund of Knowledge: WNL - Mood Mood: Depressed ("I feel better, thank God") - Affect Affect: Constricted (but more reactive) - Speech Speech: Pressured - Formal Thought Process Formal Thought Process: Delusions (denied today), Paranoia (some improvement), Loosening of associations (better), Circumstantial - Suicidal Ideation Suicidal Ideation: No - Homicidal Ideation Homicidal Ideation: No Goal/Treatment Plan - Goal/Treatment Plan Need for Continued Stay: Remain at risks for inpatient hospitalization, Severe depression anxiety, Discharge may exacerbated symptoms, Severe functional impairment Progress Toward Problem(s) and Goals/Treatment Plan: Milieu/structure/supportive therapy Medical consult will be considered SW consultation for discharge plan and social issues Med management Invega 15 mghs for psychosis ativan only PRN for anxiety Prolixin 5mg am 10mg hs for psychosis clozaril was discussed with pt's family and outpatient psychiatrist 10/06/17, will not initiate it Family involvement Follow up on labs Will monitor closely Pt was educated about risk/benefits and alternatives of medications, coping strategies (safety plan, suicide prevention), relapse prevention, importance of follow up with psychiatrist and therapist, stay away from drugs/alcohol/smoking Estimated Date of D/C: 10/10/17
[2017-10-08] MEDS: PALIPERIDONE 9 MG PO SCH (21:10)
[2017-10-08] MEDS: INVEGA 6 MG PO SCH (21:10)
--- NOTE | 2017-10-09 15:53 | PCM.PYCHPN ---
Psychiatric Progress Note - Psychiatric Progress Note Patient seen today, length of contact: 30 min Patient Chief Complaint: "I feel good thank God" Problems Identified/Issues Discussed: Suicide/ homicide prevention, past psychiatric h/o, current psychiatric symptoms , medical problems, risk/benefits and alternatives of medications, medications compliance, coping strategies, substance abuse h/o, relapse prevention, importance of follow up with psychiatrist and therapist, discharge plan. Medical Problems: pt is healthy Diagnostic Results: 09/27/17 05:20 09/27/17 05:20 Lab Results 09/28/17 06:30: RPR Nonreactive 09/28/17 06:30: TSH 3rd Generation 1.34 09/28/17 06:30: Fasting Glucose 84, Triglycerides 57, Cholesterol 161, LDL Cholesterol Direct 62, HDL Cholesterol 69 H 09/27/17 06:21: Urine Opiates Screen Negative, Urine Methadone Screen Negative, Ur Barbiturates Screen Negative, Ur Phencyclidine Scrn Negative, Ur Amphetamines Screen Negative, U Benzodiazepines Scrn Negative, U Oth Cocaine Metabols Negative, U Cannabinoids Screen Negative 09/27/17 06:21: Urine Color Yellow, Urine Appearance Clear, Urine pH 6.0, Ur Specific [place] 1.020, Urine Protein Negative, Urine Glucose (UA) Negative, Urine Ketones Negative, Urine Blood Negative, Urine Nitrate Negative, Urine Bilirubin Negative, Urine Urobilinogen 0.2, Ur Leukocyte Esterase Negative 09/27/17 05:20: Alcohol, Quantitative < 10 09/27/17 05:20: Salicylates < 1 L, Acetaminophen < 10.0 L 09/27/17 05:20: Sodium 140, Potassium 4.1, Chloride 104, Carbon Dioxide 28, Anion Gap 12, BUN 14, Creatinine 0.8, Est GFR ( Amer) > 60, Est GFR (Non- Af Amer) > 60, Random Glucose 93, Calcium 9.1, Magnesium 2.1, Total Bilirubin 0.1 L, AST 22, ALT 38, Alkaline Phosphatase 55, Total Protein 6.2, Albumin 3.6, Globulin 2.6, Albumin/Globulin Ratio 1.4 09/27/17 05:20: WBC 10.8 D, RBC 3.89, Hgb 11.1 L, Hct 33.2 L, MCV 85.3, MCH 28.5, MCHC 33.4, RDW 13.2, Plt Count 291, MPV 10.1, Gran % 72.0 H, Lymph % (Auto ) 19.2 L, [place] % (Auto) 7.2 H, Eos % (Auto) 1.3 L, Baso % (Auto) 0.3, Gran # 7.77 H, Lymph # (Auto) 2.1, [place] # (Auto) 0.8 H, Eos # (Auto) 0.1, Baso # (Auto ) 0.03 Vital Signs Temp Pulse Resp BP Pulse Ox 09/29/17 07:23 97.7 F 66 17 99/47 L 09/28/17 21:00 84 121/55 L 09/28/17 00:00 19 09/27/17 22:20 97.4 F L 67 19 101/60 100 09/27/17 21:45 98.1 F 89 18 124/76 99 09/27/17 20:00 98.1 F 89 18 124/76 99 09/27/17 18:21 88 16 120/75 98 09/27/17 16:21 84 16 126/91 H 98 09/27/17 13:38 98.0 F 64 17 114/66 99 09/27/17 09:35 70 16 112/69 98 09/27/17 09:21 61 18 102/61 98 Temp Pulse Resp BP Pulse Ox 98.0 F 62 20 103/57 L 100 10/04/17 07:00 10/04/17 07:00 10/04/17 07:00 10/04/17 07:00 09/27/17 22:20 Temp Pulse Resp BP Pulse Ox 97.7 F 64 14 94/58 L 100 10/07/17 06:31 10/07/17 06:31 10/07/17 06:31 10/07/17 06:31 09/27/17 22:20 DSM 5 Symptoms Update: Patient is a single 26 yo white female with psychiatric history of schizophrenia , prior psychiatric admissions-most [id number]/2017 before that on 03/2015, in outpatient treatment with Dr. Roa, reportedly adherent with Invega, pt self referred for evaluation of worsening of paranoia, inability to function, patient reported that she feels scared in the house where she lives because she was scared that she will be raped and killed by one of her relatives by the name "Jorge", patient was not able to contract for safety in the emergency room , patient wants her medication to be adjusted, patient signed consent for treatment and was transferred to psychiatric the patient stated on September 27, transfer was uneventful. 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 pt was seen today in her room, pt presented better, good hygiene, smiling today , seems to be in good mood. Discussed DTP at [facility], as well as [facility], pt is less paranoid, said she feels fine if she will be referred back to [facility] of note pt was paranoid towards of one of the pt in the clinic, now seems to be better. pt sill paranoid towards her uncle, but as per family there is nothing concerning, pt has supportive mother and father as well as grandmother. parents cannot take pt back home because pt does not get alone with other special need child. pt denied v/a/t hallucinations, pt presented less paranoid, more organized. 10/06/17: [phone] called this tag writer, tx plan was discussed, as per , pt is closer to her baseline, pt will be not a good candidate for clozaril as of now because pt will be not monitored in the community because no good life structure. 10/06/17 pt's family contacted this tag writer, this tag writer called back to pt's mother, [phone] left her a message, awaiting for the call back. 10/03/17 spoke to pt's father, see notes. as per staff pt is calmer no agitation or aggression, compliant with meds. patient tolerates medications well, no side effects observed or reported, aims 0 , no EPS. Impression: Schizophrenia as per history Rule out schizoaffective disorder bipolar type Medication Change: Yes (ativan d/c) Medical Record Reviewed: Yes Mental Status Examination - Cognitive Function Orientation: Person, Place Memory: Intact Attention: Poor (some improvement) Concentration: Poor (some improvement) Association: Loose (some improvement) Fund of Knowledge: WNL - Mood Mood: Depressed ("I feel better, thank God") - Affect Affect: Constricted (but more reactive) - Speech Speech: Pressured - Formal Thought Process Formal Thought Process: Delusions (denied today), Paranoia (some improvement), Loosening of associations (better), Circumstantial - Suicidal Ideation Suicidal Ideation: No - Homicidal Ideation Homicidal Ideation: No Goal/Treatment Plan - Goal/Treatment Plan Need for Continued Stay: Remain at risks for inpatient hospitalization, Severe depression anxiety, Discharge may exacerbated symptoms, Severe functional impairment Progress Toward Problem(s) and Goals/Treatment Plan: Milieu/structure/supportive therapy Medical consult will be considered SW consultation for discharge plan and social issues Med management Invega 15 mghs for psychosis ativan only PRN for anxiety Prolixin 5mg am 10mg hs for psychosis clozaril was discussed with pt's family and outpatient psychiatrist 10/06/17, will not initiate it Family involvement Follow up on labs Will monitor closely Pt was educated about risk/benefits and alternatives of medications, coping strategies (safety plan, suicide prevention), relapse prevention, importance of follow up with psychiatrist and therapist, stay away from drugs/alcohol/smoking Estimated Date of D/C: 10/10/17
[2017-10-09] MEDS: PALIPERIDONE 9 MG PO SCH (21:40)
[2017-10-09] MEDS: INVEGA 6 MG PO SCH (21:40)
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
[2017-10-10] MEDS: PALIPERIDONE 9 MG PO SCH (21:31)
[2017-10-10] MEDS: INVEGA 6 MG PO SCH (21:32)
[2017-10-11 07:08] VITALS: RESP 18
--- NOTE | 2017-10-11 09:35 | PCM.PYCHPN ---
Psychiatric Progress Note - Psychiatric Progress Note Patient seen today, length of contact: 30 min Patient Chief Complaint: "better" Problems Identified/Issues Discussed: I have reviewed assessment. Patient is a single 26 yo white female with psychiatric history of schizophrenia, prior psychiatric admissions-most recently 02/2017 before that on 03/2015, in outpatient treatment with Dr. Roa, reportedly adherent with Invega, pt self referred for evaluation of worsening of paranoia and inability to function. I reviewed recent notes and met with patient at bedside. Patient is mildly disengaged with my interview but superficially cooperative with relevant, consistent responses. Grooming remains fair and patient is oriented x3. Patient reports that she is doing better and denies any new concerns. She is mildly guarded, oddly related but not responding to internal stimuli. She denies any perceptual disturbance. Compliant with medications and denies side effects, discomfort or pain. As per staff patient has been improving. She seems brighter and more spontaneous. She still stays in her room and doesn't socialize. Patient doesn't appear overtly paranoid or delusiona. There were no behavioral issues on the unit overnight. Diagnostic Results: Schizophrenia as per history Rule out schizoaffective disorder bipolar type Medication Change: Yes (ativan d/c) Medical Record Reviewed: Yes Mental Status Examination - Cognitive Function Orientation: Person, Place Memory: Intact Attention: Poor (some improvement) Concentration: Poor (some improvement) Association: Loose (some improvement) Fund of Knowledge: WNL - Mood Mood: Depressed ("I feel better, thank God") - Affect Affect: Constricted (but more reactive) - Speech Speech: Pressured - Formal Thought Process Formal Thought Process: Delusions (denied today), Paranoia (some improvement), Loosening of associations (better), Circumstantial - Suicidal Ideation Suicidal Ideation: No - Homicidal Ideation Homicidal Ideation: No Goal/Treatment Plan - Goal/Treatment Plan Need for Continued Stay: Remain at risks for inpatient hospitalization, Severe depression anxiety, Discharge may exacerbated symptoms, Severe functional impairment Progress Toward Problem(s) and Goals/Treatment Plan: * c/w current tx and plan * No new lab results today * Vitals reviewed and noted below: Selected Entries 10/11/17 07:07 Temperature 97.9 F Pulse Rate 80 Respiratory 18 Rate Blood Pressure 96/51 L Estimated Date of D/C: 10/12/17 (Patient's family feels that patient has not criteria for discharge, patient was angry today at the morning time refused to talk to her mother.)
[2017-10-11] MEDS: INVEGA 6 MG PO SCH (22:10)
[2017-10-11] MEDS: PALIPERIDONE 9 MG PO SCH (22:10)
[2017-10-12 07:19] VITALS: BP 95/51; PULSE 77; TEMP 97.4
--- NOTE | 2017-10-12 15:13 | PCM.PYCHDC ---
Mental Status Examination - Mental Status Examination Orientation: Person, Place, Situation, Time Memory: Intact Mood: Neutral Affect: Constricted (but more reactive, mood congruent) Speech: Appropriate (short answers, underproductive) Attention: WNL (with improvement) Concentration: WNL (wtih improvement) Language: Word Retrieval Association: Loose (much improved) Fund of Knowledge: WNL Formal Thought Process: Delusions (much improvement, but residual delusions), Paranoia (much improvement, but residual paranoia) Description of patient's judgement and insight: Pt has improved insight into mental and medical illness, pt was compliant with medications and unit rules and regulations, pt was going to groups, was calm, cooperative, socially appropriate, no behavioral incidents, no agitation, no aggression. Psychotic Thoughts and Behaviors: Pt denied v/a/t hallucinations, denied paranoid ideations, pt does not appear to be psychotic, and thought process is goal directed. Suicidal Ideation: No Current Homicidal Ideation?: No Plan: pt adamantly denied thoughts of harming self or others denied intent or plan. Discharge Summary - Discharge Note Reason for Hospitalization: Patient was admitted to the psychiatric inpatient unit for forcing of psychosis , feeling not safe, inability to function. Psychiatric History (includes Medical, Family, Personal Hx): see HPI Laboratory Data: 09/27/17 05:20 09/27/17 05:20 Lab Results 09/28/17 06:30: RPR Nonreactive 09/28/17 06:30: TSH 3rd Generation 1.34 09/28/17 06:30: Fasting Glucose 84, Triglycerides 57, Cholesterol 161, LDL Cholesterol Direct 62, HDL Cholesterol 69 H 09/27/17 06:21: Urine Opiates Screen Negative, Urine Methadone Screen Negative, Ur Barbiturates Screen Negative, Ur Phencyclidine Scrn Negative, Ur Amphetamines Screen Negative, U Benzodiazepines Scrn Negative, U Oth Cocaine Metabols Negative, U Cannabinoids Screen Negative 09/27/17 06:21: Urine Color Yellow, Urine Appearance Clear, Urine pH 6.0, Ur Specific [place] 1.020, Urine Protein Negative, Urine Glucose (UA) Negative, Urine Ketones Negative, Urine Blood Negative, Urine Nitrate Negative, Urine Bilirubin Negative, Urine Urobilinogen 0.2, Ur Leukocyte Esterase Negative 09/27/17 05:20: Alcohol, Quantitative < 10 09/27/17 05:20: Salicylates < 1 L, Acetaminophen < 10.0 L 09/27/17 05:20: Sodium 140, Potassium 4.1, Chloride 104, Carbon Dioxide 28, Anion Gap 12, BUN 14, Creatinine 0.8, Est GFR ( Amer) > 60, Est GFR (Non- Af Amer) > 60, Random Glucose 93, Calcium 9.1, Magnesium 2.1, Total Bilirubin 0.1 L, AST 22, ALT 38, Alkaline Phosphatase 55, Total Protein 6.2, Albumin 3.6, Globulin 2.6, Albumin/Globulin Ratio 1.4 09/27/17 05:20: WBC 10.8 D, RBC 3.89, Hgb 11.1 L, Hct 33.2 L, MCV 85.3, MCH 28.5, MCHC 33.4, RDW 13.2, Plt Count 291, MPV 10.1, Gran % 72.0 H, Lymph % (Auto ) 19.2 L, [place] % (Auto) 7.2 H, Eos % (Auto) 1.3 L, Baso % (Auto) 0.3, Gran # 7.77 H, Lymph # (Auto) 2.1, [place] # (Auto) 0.8 H, Eos # (Auto) 0.1, Baso # (Auto ) 0.03 Vital Signs Temp Pulse Resp BP Pulse Ox 10/12/17 07:18 97.4 F L 77 18 95/51 L 10/11/17 15:53 81 108/56 L 10/11/17 07:07 97.9 F 80 18 96/51 L 10/10/17 22:30 94/46 L 10/10/17 15:00 64 99/46 L 10/10/17 06:59 98 F 79 20 118/71 10/09/17 07:33 98.1 F 59 L 20 100/49 L 10/08/17 06:55 98.2 F 48 L 18 87/37 L 99 10/07/17 16:01 61 94/52 L 10/07/17 06:31 97.7 F 64 14 94/58 L 10/06/17 16:00 90 112/59 L 10/06/17 06:49 98.1 F 64 18 91/47 L 10/05/17 16:00 74 106/60 10/05/17 06:58 98.8 F 73 20 101/50 L 10/04/17 15:00 80 101/47 L 10/04/17 07:00 98.0 F 62 20 103/57 L 10/03/17 15:00 80 20 114/64 10/03/17 07:23 97.9 F 57 L 18 92/53 L 10/02/17 15:00 66 110/68 10/01/17 15:00 84 104/58 L 10/01/17 07:16 97.6 F 64 19 102/55 L 09/30/17 16:00 71 100/56 L 09/30/17 07:27 97.8 F 89 20 108/58 L 09/29/17 16:39 74 20 100/68 09/29/17 07:23 97.7 F 66 17 99/47 L 09/28/17 21:00 84 121/55 L 09/28/17 00:00 19 09/27/17 22:20 97.4 F L 67 19 101/60 100 09/27/17 21:45 98.1 F 89 18 124/76 99 09/27/17 20:00 98.1 F 89 18 124/76 99 09/27/17 18:21 88 16 120/75 98 09/27/17 16:21 84 16 126/91 H 98 09/27/17 13:38 98.0 F 64 17 114/66 99 09/27/17 09:35 70 16 112/69 98 09/27/17 09:21 61 18 102/61 98 Consultations:: List each consultation separately and include: 1. Reason for request. 2. Findings. 3. Follow-up Consultations: pt is healthy, was seen by medical team at ED Summary of Hospital Course include:: 1. Description of specific treatment plan utilized for patients during their course of treatmen. 2. Summarize the time- course for resolution of acute symptoms and/or regressed behaviors. 3. Describe issues identified and worked on during hospitalization. 4. Describe medication utilized. 5. Describe medical problems identified and treated. 6. Reassessment of suicide risk Summary of Hospital Course: Patient is a single 26 yo white female with psychiatric history of schizophrenia , prior psychiatric admissions-most [id number] before that on 03/2015, in outpatient treatment with Dr. Roa, reportedly adherent with Invega, pt self referred for evaluation of worsening of paranoia, inability to function, patient reported that she feels scared in the house where she lives because she was scared that she will be raped and killed by one of her relatives by the name "Jonathan", patient was not able to contract for safety in the emergency room , patient wants her medication to be adjusted, patient signed consent for treatment and was transferred to psychiatric the patient stated on September 27, transfer was uneventful. 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 at the time of admission pt presented with acceptable personal hygiene, good ADLs, pt presented to be Disorganized in her thoughts, patient reported that she was feeling unsafe in the place where she lives, patient was scared that she will be raped as well as killed by one of her relatives by the name "Jonathan" , patient reported that "Jonathan is jealous of me because I have better job", at the same time patient reported that she is not currently working, patient reported that she does not want to go back to the same house, patient reported that her grandmother at the same time "I'm not sure if it is true or not". Patient reported that situation makes her feel depressed and anxious, patient reported that she was not sleeping well, patient reported that she is taking her medication as it was scheduled but as per [facility] pharmacy patient did not diamond picker her medications as September 13. Patient reported that she still sees Dr. Meyer in the community for the past 9years, last visit was about 2 weeks ago. pt formal v/a/t hallucinations, patient presented to be disorganized and psychotic, at the same time patient has good insight into her illness, "I don't know maybe my mind is playing tricks on me". patient does not have any thoughts of harming others, including "Jonathan". patient denied ever been abused by anyone, denied physical, emotional, sexual. denied using any drugs, denied smoking denied consumption of alcohol. PSYCHIATRIC HISTORY Patient reports at least 3 prior admissions. Most recently 02/2017 at [facility], before that patient was hospitalized on 03/2015 and also in her last year of high school. She has been in outpatient treatment with Dr. Roa for 9 years. She is prescribed Invega 12 mg HS. Prolixin has also been beneficial for her in the past. Patient denies any history of SA but reports suicidal ideation last admission. SOCIAL HISTORY Patient was born and raised in [place]. She is single. She has a boyfriend named Henry for 6 years. She has no children. She reside with her relatives at [place]. Patient graduated from high school but completed her final year with home schooling due to decompensation. She denies any history of special education classes. Patient graduated [employer] with a major in psychology & human services. no major medical problems No family history of mental illness 09/27/17 05:20 09/27/17 05:20 Lab Results 09/28/17 06:30: TSH 3rd Generation 1.34 09/28/17 06:30: Fasting Glucose 84, Triglycerides 57, Cholesterol 161, LDL Cholesterol Direct 62, HDL Cholesterol 69 H 09/27/17 06:21: Urine Opiates Screen Negative, Urine Methadone Screen Negative, Ur Barbiturates Screen Negative, Ur Phencyclidine Scrn Negative, Ur Amphetamines Screen Negative, U Benzodiazepines Scrn Negative, U Oth Cocaine Metabols Negative, U Cannabinoids Screen Negative 09/27/17 06:21: Urine Color Yellow, Urine Appearance Clear, Urine pH 6.0, Ur Specific [place] 1.020, Urine Protein Negative, Urine Glucose (UA) Negative, Urine Ketones Negative, Urine Blood Negative, Urine Nitrate Negative, Urine Bilirubin Negative, Urine Urobilinogen 0.2, Ur Leukocyte Esterase Negative 09/27/17 05:20: Alcohol, Quantitative < 10 09/27/17 05:20: Salicylates < 1 L, Acetaminophen < 10.0 L 09/27/17 05:20: Sodium 140, Potassium 4.1, Chloride 104, Carbon Dioxide 28, Anion Gap 12, BUN 14, Creatinine 0.8, Est GFR ( Amer) > 60, Est GFR (Non- Af Amer) > 60, Random Glucose 93, Calcium 9.1, Magnesium 2.1, Total Bilirubin 0.1 L, AST 22, ALT 38, Alkaline Phosphatase 55, Total Protein 6.2, Albumin 3.6, Globulin 2.6, Albumin/Globulin Ratio 1.4 09/27/17 05:20: WBC 10.8 D, RBC 3.89, Hgb 11.1 L, Hct 33.2 L, MCV 85.3, MCH 28.5, MCHC 33.4, RDW 13.2, Plt Count 291, MPV 10.1, Gran % 72.0 H, Lymph % (Auto ) 19.2 L, [place] % (Auto) 7.2 H, Eos % (Auto) 1.3 L, Baso % (Auto) 0.3, Gran # 7.77 H, Lymph # (Auto) 2.1, [place] # (Auto) 0.8 H, Eos # (Auto) 0.1, Baso # (Auto ) 0.03 Vital Signs Temp Pulse Resp BP Pulse Ox 09/28/17 00:00 19 09/27/17 22:20 97.4 F L 67 19 101/60 100 09/27/17 21:45 98.1 F 89 18 124/76 99 09/27/17 20:00 98.1 F 89 18 124/76 99 09/27/17 18:21 88 16 120/75 98 09/27/17 16:21 84 16 126/91 H 98 09/27/17 13:38 98.0 F 64 17 114/66 99 09/27/17 09:35 70 16 112/69 98 09/27/17 09:21 61 18 102/61 98 pt was stabilized on the following medications; Invega 15 mghs for psychosis ativan only PRN for anxiety Prolixin was increased to 20mg daily, but on d/c was given 15mg because pt said it was too strong for her. clozaril was discussed with pt's family and outpatient psychiatrist 10/06/17, psychiatrist/parents/pt were against that medication. pt tolerated medications well, no side effects observed or reported, AIMS o, no EPS. Over the course of this hospitalization pt was attending groups, pt also had medication management, had therapeutic milieu. Overall pt improved significantly pt has residual paranoia but overall improved , pt denied being anxious, pt was socially appropriate, no behavioral issues, pt s insight improved as well and soon pt deemed to be ready for discharge. family meeting took place today with pt's mother, father, SW, resident, this telegraphic typewriter installer and pt. tx course was discussed in details, family has unrealistic request about database admin for the pt by medical student lamp tester and inspector student which will be paid by pt's insurance company, this telegraphic typewriter installer and SW advised to search in the community about resources, was advised to establish relationship with [employer], search for volunteer job as well, family was appreciative and acknowledged the improvement of pt. as per family "Clements looks terrific, she looks good, very good", agree with d/c plan. Discharge took more than 45min. At the time of the discharge pt denied been depressed, denied thoughts of harming self or others, denied psychotic symptoms, and pt does not appeared to be psychotic, denied been anxious, pt is not in imminent danger to self or others, will be following up at [facility] [place], information about follow up appointment, time and address provided to the pt, it is patient responsibility to follow up with outpatient clinic, PMD as well as specialists (see SW note for more detailed information). In case pt will need to obtain results of studies pending at discharge pt was provided with contact information of Psychiatric Inpatient unit [phone] as well as Medical Record Department [phone]. pt is not using drugs, do not smoke pt was provided with prescriptions for all of medications (please see medication reconciliation form) Pt was educated about safety plan in case of worsening of symptoms or in case of suicidal or homicidal ideation call 911 or go to the nearest ER, also was educated to take meds as prescribed and stay away from drugs, pt verbalized understanding. - Diagnosis (1) Schizophrenia Status: Chronic Priority: High - Final Diagnosis (DSM 5) Condition upon Discharge: IMPROVED Disposition: HOME/ ROUTINE Follow-up Treatment Plan: At the time of the discharge pt denied been depressed, denied thoughts of harming self or others, denied psychotic symptoms, and pt does not appeared to be psychotic, denied been anxious, pt is not in imminent danger to self or others, will be following up at [facility] [place], information about follow up appointment, time and address provided to the pt, it is patient responsibility to follow up with outpatient clinic, PMD as well as specialists (see SW note for more detailed information). In case pt will need to obtain results of studies pending at discharge pt was provided with contact information of Psychiatric Inpatient unit [phone] as well as Medical Record Department [phone]. pt is not using drugs, do not smoke pt was provided with prescriptions for all of medications (please see medication reconciliation form) Pt was educated about safety plan in case of worsening of symptoms or in case of suicidal or homicidal ideation call 911 or go to the nearest ER, also was educated to take meds as prescribed and stay away from drugs, pt verbalized understanding. Prescriptions/Medication Reconciliation: fluPHENAZine [Prolixin] 10 mg PO HS #14 tab fluPHENAZine [Prolixin] 5 mg PO DAILY #14 tab LORazepam [Ativan] 0.5 mg PO BID PRN #30 tab PRN Reason: Anxiety Paliperidone [Invega] 6 mg PO HS #14 ter Paliperidone [Invega] 9 mg PO HS #14 tab.er.24 - Smoking Cessation Smoking Cessation Medication prescribed: No Reason for not providing: pt does not smoke - Antipsychotic Medications Pt discharged on 2 or more routine antipsychotic medications: Yes - Justification for 2 or more meds Failed 3 or more trials of Monotherapy: List medications: seroquel, trilafon, invega. for now pt needs to continue on two antipsychotic meds. Justification other than those listed above:: clozaril was offered, but pt declined
== END 2017-10-12 12:05 | disposition home or self-care (01) | DRG 885 ==
LOC: ED 03:50 → ERH 06:22 → PSYC 22:33
PROVIDERS: ADMIT Psychiatry & Neurology Psychiatry; ATTEND Psychiatry & Neurology Psychiatry
PROC: GZ3ZZZZ Medication Management (ICD-10-PCS; principal; 2017-09-28)
DX: F20.0 Paranoid schizophrenia (principal); R45.1 Restlessness and agitation

== ENCOUNTER 2017-10-13 20:07 | Inpatient (IN) | payer BC, MEDICARE, MEDICAID ==
[2017-10-13 20:08] VITALS: BMI 28.1
[2017-10-13 20:55] LABS: BASO # 0.02 K/mm3 (0.0-2.0); BASO % 0.2 % (0.0-3.0); EOS # 0.2 (0.0-0.7); EOS % 1.7 % (1.5-5.0); GRAN # 5.33 (1.4-6.5); GRAN % 60.1 % (50.0-68.0); HEMOGLOBIN 11.9 g/dL (12.0-16.0); LYMPH # 2.6 (1.2-3.4); LYMPH % 28.8 % (22.0-35.0); MEAN CELL VOLUME 83.5 fl (80.0-105.0); MEAN CORPUSCULAR HEMOGLOBIN 28.5 pg (25.0-35.0); MEAN CORPUSCULAR HGB CONC 34.1 g/dl (31.0-37.0); MEAN PLATELET VOLUME 11.1 fl (7.0-11.0); MONO # 0.8 (0.1-0.6); MONO % 9.2 % (1.0-6.0); RBC 4.18 10^6/uL (3.5-6.1); RED CELL DISTRIBUTION WIDTH 12.7 % (11.5-14.5); WHITE BLOOD COUNT 8.9 10^3/ul (4.5-11.0)
[2017-10-13 20:59] LABS: PH,URINE 6.5 (4.7-8.0); URINE BILIRUBIN NEGATIVE (NEGATIVE); URINE BLOOD NEGATIVE (NEGATIVE); URINE GLUCOSE (UA) NEGATIVE (NEGATIVE); URINE LEUKOCYTE ESTERASE TRACE Leu/uL (NEGATIVE); URINE PROTEIN NEGATIVE mg/dL (<30 mg/dL); URINE UROBILINOGEN 0.2 E.U./dL (<1 E.U./dL)
--- NOTE | 2017-10-13 21:00 | ED PDOC ---
Arrival/HPI - General Chief Complaint: Psychiatric Evaluation Time Seen by Provider: 10/13/17 20:08 Historian: Patient - History of Present Illness Narrative History of Present Illness (Text): This is a 27 year old female with PMH of schizophrenia and suicidal ideation presenting to the ER due to "feeling paranoid at home, someone is stalking me." Patient was discharged yesterday from inpatient psychiatry for similar concerns. She currently lives with grandmother and two uncles. She denies being abused at home. She states she is compliant with medication. She sees Dr. Meyer as outpatient. She denies visual and auditory hallucinations. She denies suicidal ideation. Patient denies chest pain, SOB, headaches, abdominal pain, and dizziness. Time/Duration: < week Symptom Course: Unchanged Activities at Onset: Rest Context: Home Past Medical History - Provider Review Nursing Documentation Reviewed: Yes - Infectious Disease Hx of Infectious Diseases: None - Cardiac Hx Cardiac Disorders: No Hx Hypertension: No - Pulmonary Hx Respiratory Disorders: No Hx Tuberculosis: No - Neurological HX Cerebrovascular Accident: No Hx Seizures: No - HEENT Hx HEENT Disorder: No - Renal Hx Renal Disorder: No - Endocrine/Metabolic Hx Endocrine Disorders: No - Hematological/Oncological Hx Cancer: No - Integumentary Hx Dermatological Disorder: No - Musculoskeletal/Rheumatological Hx Musculoskeletal Disorders: No - Gastrointestinal Hx Gastrointestinal Disorders: No - Genitourinary/Gynecological Hx Sexually Transmitted Diseases: No - Psychiatric Hx Schizophrenia: Yes Hx Substance Use: No - Anesthesia Hx Anesthesia: No Family/Social History - Physician Review Nursing Documentation Reviewed: Yes Family/Social History: Unknown Family HX Smoking Status: Never Smoked Hx Alcohol Use: No Hx Substance Use: No Allergies/Home Meds Allergies/Adverse Reactions: Allergies No Known Allergies Allergy (Verified 10/14/17 23:16) Review of Systems - Physician Review All systems were reviewed & negative as marked: Yes - Review of Systems Constitutional: Normal Respiratory: Normal Cardiovascular: Normal Gastrointestinal: Normal Musculoskeletal: Normal Skin: Normal Neurological: Normal Endocrine: Normal Hemo/Lymphatic: Normal Psychiatric: Anxiety Physical Exam Vital Signs Reviewed: Yes Vital Signs Temp Pulse Resp BP Pulse Ox 10/14/17 08:55 98.1 F 10/14/17 08:51 98.1 F 75 19 126/52 L 99 10/14/17 08:07 98.1 F 75 19 124/72 99 10/14/17 05:00 73 18 129/74 100 10/13/17 23:00 72 17 117/65 99 10/13/17 21:01 98.3 F 92 H 18 108/55 L 98 Temperature: Afebrile Blood Pressure: Normal Pulse: Regular Respiratory Rate: Normal Appearance: Positive for: Well-Appearing, Non-Toxic, Comfortable Pain Distress: None Mental Status: Positive for: Alert and Oriented X 3 - Systems Exam Head: Present: Atraumatic, Normocephalic Conjunctiva: Present: Normal Mouth: Present: Moist Mucous Membranes Neck: Present: Normal Range of Motion Respiratory/Chest: Present: Clear to Auscultation, Good Air Exchange. No: Respiratory Distress, Accessory Muscle Use Cardiovascular: Present: Regular Rate and Rhythm, Normal S1, S2. No: Murmurs Abdomen: No: Tenderness, Distention, Peritoneal Signs Back: Present: Normal Inspection Upper Extremity: Present: Normal Inspection. No: Cyanosis, Edema Lower Extremity: Present: Normal Inspection. No: Edema Neurological: Present: Speech Normal, Motor Func Grossly Intact, Normal Sensory Function Skin: Present: Warm, Dry, Normal Color. No: Rashes Psychiatric: Present: Alert, Normal Concentration, Anxious, Agitated Medical Decision Making ED Course and Treatment: Impression: This is a 27 year old female with PMH of schizophrenia and and suicidal ideation presenting to the ER due to being paranoid about someone stalking patient at home. Plan: -U/A - screen -alcohol serum -CXRY -CMP Progress: 10/13/17 21:47 Patient is cleared medically. Patient to have [id number] with psychiatrist in the am. 10/13/17 22:28 EKG shows normal sinus rhythm. Ventricular rate of 97bmp. MT interval 186ms. QRS duration 88ms. 10/13/17 23:34 Chest Xray is normal - Lab Interpretations Microbiology Results: Microbiology Results 10/13/17 21:16 Urine,Clean Catch Urine Culture - Final No Growth (<1,000 CFU/ML) Lab Results: 10/13/17 20:20 10/13/17 20:20 Lab Results 10/13/17 20:45: Urine HCG, Qual Negative 10/13/17 20:45: Urine Opiates Screen Negative, Urine Methadone Screen Negative, Ur Barbiturates Screen Negative, Ur Phencyclidine Scrn Negative, Ur Amphetamines Screen Negative, U Benzodiazepines Scrn Negative, U Oth Cocaine Metabols Negative, U Cannabinoids Screen Negative 10/13/17 20:45: Urine Color Yellow, Urine Appearance Clear, Urine pH 6.5, Ur Specific [place] <= 1.005, Urine Protein Negative, Urine Glucose (UA) Negative, Urine Ketones Negative, Urine Blood Negative, Urine Nitrate Negative, Urine Bilirubin Negative, Urine Urobilinogen 0.2, Ur Leukocyte Esterase Trace H, Urine RBC 0 - 2, Urine WBC 1 - 3, Ur Epithelial Cells 4 - 5, Urine Bacteria Few 10/13/17 20:20: Alcohol, Quantitative < 10 10/13/17 20:20: Salicylates < 1 L, Acetaminophen < 10.0 L 10/13/17 20:20: Sodium 139, Potassium 3.6, Chloride 101, Carbon Dioxide 25, Anion Gap 17, BUN 8, Creatinine 0.6 L, Est GFR ( Amer) > 60, Est GFR (Non -Af Amer) > 60, Random Glucose 100, Calcium 9.3, Total Bilirubin 0.2, AST 28, ALT 22, Alkaline Phosphatase 71, Total Protein 7.1, Albumin 4.2, Globulin 2.9, Albumin/Globulin Ratio 1.5 10/13/17 20:20: WBC 8.9, RBC 4.18, Hgb 11.9 L, Hct 34.9 L, MCV 83.5, MCH 28.5, MCHC 34.1, RDW 12.7, Plt Count 256, MPV 11.1 H, Gran % 60.1, Lymph % (Auto) 28.8 , [place] % (Auto) 9.2 H, Eos % (Auto) 1.7, Baso % (Auto) 0.2, Gran # 5.33, Lymph # (Auto) 2.6, [place] # (Auto) 0.8 H, Eos # (Auto) 0.2, Baso # (Auto) 0.02 - RAD Interpretation Radiology Orders: 10/13/17 20:29 CHEST ONE VIEW [RAD] Stat - Medication Orders Current Medication Orders: Benztropine Mesylate (Cogentin) 0.5 mg PO BID CM Fluphenazine HCl (Prolixin) 10 mg PO BID CM PRN Reason: Protocol Last Admin: 10/17/17 08:22 Dose: 10 mg Behavioural Document 10/17/17 08:22 TW (Rec: 10/17/17 08:22 TW [id number]) Maintenance Maintenance Dose Yes Re-Assess: Reassess Psych Meds Document 10/17/17 09:22 TW (Rec: 10/17/17 09:37 TW [id number]) Reassess Psych Med Effective Haloperidol (Haldol) 3 mg PO Q6H PRN; Protocol PRN Reason: Agitation Last Admin: 10/16/17 21:47 Dose: 3 mg Behavioural Document 10/16/17 21:47 KM (Rec: 10/16/17 21:47 KM [id number]) Nonmedicinal Nonmedicinal Interventions Redirect Therapeutic Communication Behavior Behavior for Medication: Anxiety Continuous pacing/restlessness Re-Assess: Reassess Psych Meds Document 10/16/17 22:47 KM (Rec: 10/16/17 23:11 KM [id number]) Reassess Psych Med Effective Haloperidol Lactate (Haldol) 3 mg IM Q6H PRN; Protocol PRN Reason: Agitation Home Med (Home Med) 1 unit PO 0800 CM Last Admin: 10/17/17 08:22 Dose: 1 unit Home Med (Home Med) 1 unit PO 0800 CM Last Admin: 10/17/17 08:22 Dose: 1 unit Lorazepam (Ativan) 2 mg IM Q6H PRN; Protocol PRN Reason: Agitation Lorazepam (Ativan) 2 mg PO Q6H PRN; Protocol PRN Reason: Agitation Last Admin: 10/16/17 21:47 Dose: 2 mg Behavioural Document 10/16/17 21:47 KM (Rec: 10/16/17 21:47 KM [id number]) Nonmedicinal Nonmedicinal Interventions Redirect Therapeutic Communication Behavior Behavior for Medication: Anxiety Continuous pacing/restlessness Re-Assess: Reassess Psych Meds Document 10/16/17 22:47 KM (Rec: 10/16/17 23:11 KM [id number]) Reassess Psych Med Effective Lorazepam (Ativan) 0.5 mg PO BID CM PRN Reason: Protocol Discontinued Medications Fluphenazine HCl (Prolixin) 10 mg PO HS CM PRN Reason: Protocol Last Admin: 10/15/17 21:14 Dose: 10 mg Behavioural Document 10/15/17 21:14 EOO (Rec: 10/15/17 21:14 EOO [id number]) Maintenance Maintenance Dose Yes Nonmedicinal Nonmedicinal Interventions Redirect Behavior Behavior for Medication: Anxiety Re-Assess: Reassess Psych Meds Document 10/15/17 22:14 EOO (Rec: 10/15/17 23:29 EOO [id number]) Reassess Psych Med Effective Fluphenazine HCl (Prolixin) 5 mg PO DAILY CM PRN Reason: Protocol Last Admin: 10/16/17 08:56 Dose: 5 mg Behavioural Document 10/16/17 08:56 CV (Rec: 10/16/17 08:56 CV [id number]) Maintenance Maintenance Dose Yes Nonmedicinal Nonmedicinal Interventions Therapeutic Communication Re-Assess: Reassess Psych Meds Document 10/16/17 09:56 CV (Rec: 10/16/17 13:12 CV [id number]) Reassess Psych Med Effective Home Med (Home Med) 1 unit PO HS CM Home Med (Home Med) 1 unit PO HS CM Home Med (Home Med) 1 unit PO HS CM Last Admin: 10/15/17 23:29 Dose: Not Given Non-Admin Reason: Patient Refused Home Med (Home Med) 1 unit PO HS CM Last Admin: 10/15/17 23:29 Dose: Not Given Non-Admin Reason: Patient Refused Lorazepam (Ativan) 0.5 mg PO BID PRN; Protocol PRN Reason: Agitation Last Admin: 10/14/17 10:47 Dose: 0.5 mg - PA / MANAGER DAIRY / Resident Statement MD/DO has reviewed & agrees with the documentation as recorded. MD/DO has examined the patient and agrees with the treatment plan. Disposition/Present on Arrival - Present on Arrival Any Indicators Present on Arrival: No History of DVT/PE: No History of Uncontrolled Diabetes: No Urinary Catheter: No History of Decub. Ulcer: No History Surgical Site Infection Following: None - Disposition Have Diagnosis and Disposition been Completed?: Yes Diagnosis: Schizophrenia Disposition: HOSPITALIZED Disposition Time: 08:00 Patient Problems: Current Active Problems Problem Status Onset Schizophrenia Chronic Condition: GOOD
[2017-10-13 21:01] LABS: URINE APPEARANCE CLEAR (CLEAR); URINE COLOR YELLOW (YELLOW)
[2017-10-13 21:07] LABS: ACETAMINOPHEN < 10.0 ug/ml (10.0-20.0); SALICYLATE < 1 mg/dL (2.0-20.0)
[2017-10-13 21:10] LABS: URINE BACTERIA FEW (NEG); URINE RBC 0 - 2 /hpf (0-2)
[2017-10-13 21:19] LABS: ALB/GLOB RATIO 1.5 (1.1-1.8); ALBUMIN 4.2 g/dL (3.0-4.8); ALT/SGPT 22 U/L (7-56); AST/SGOT 28 U/L (14-36); BLOOD UREA NITROGEN 8 mg/dL (7-21); CALCIUM 9.3 mg/dL (8.4-10.5); GFR AFRICAN-AMERICAN > 60; GFR NON-AFRICAN AMERICAN > 60
[2017-10-13 21:29] LABS: BARBITURATES, UR NEGATIVE (NEGATIVE); BENZODIAZEPINES, UR NEGATIVE (NEGATIVE); OPIATES, UR NEGATIVE (NEGATIVE); PHENCYCLIDINE, UR NEGATIVE (NEGATIVE)
--- NOTE | 2017-10-14 07:01 | ED PDOC ---
Physical Exam Vital Signs Reviewed: Yes Vital Signs Temp Pulse Resp BP Pulse Ox 10/14/17 05:00 73 18 129/74 100 10/13/17 23:00 72 17 117/65 99 10/13/17 21:01 98.3 F 92 H 18 108/55 L 98 Temperature: Hypothermic Blood Pressure: Normal Pulse: Tachycardic Respiratory Rate: Normal Appearance: Positive for: Well-Appearing, Non-Toxic, Comfortable Pain Distress: None Mental Status: Positive for: Alert and Oriented X 3 Medical Decision Making ED Course and Treatment: 10/14/17 07:01: Patient endorsed to me by Dr. Sahu. Pending PES evaluation , reassessment and dispostion. 10/14/17 09:04 Seen and evaluated by crisis and admitted to the psychiatric floor. - Lab Interpretations Lab Results: 10/13/17 20:20 10/13/17 20:20 Lab Results 10/13/17 20:45: Urine HCG, Qual Negative 10/13/17 20:45: Urine Opiates Screen Negative, Urine Methadone Screen Negative, Ur Barbiturates Screen Negative, Ur Phencyclidine Scrn Negative, Ur Amphetamines Screen Negative, U Benzodiazepines Scrn Negative, U Oth Cocaine Metabols Negative, U Cannabinoids Screen Negative 10/13/17 20:45: Urine Color Yellow, Urine Appearance Clear, Urine pH 6.5, Ur Specific [place] <= 1.005, Urine Protein Negative, Urine Glucose (UA) Negative, Urine Ketones Negative, Urine Blood Negative, Urine Nitrate Negative, Urine Bilirubin Negative, Urine Urobilinogen 0.2, Ur Leukocyte Esterase Trace H, Urine RBC 0 - 2, Urine WBC 1 - 3, Ur Epithelial Cells 4 - 5, Urine Bacteria Few 10/13/17 20:20: Alcohol, Quantitative < 10 10/13/17 20:20: Salicylates < 1 L, Acetaminophen < 10.0 L 10/13/17 20:20: Sodium 139, Potassium 3.6, Chloride 101, Carbon Dioxide 25, Anion Gap 17, BUN 8, Creatinine 0.6 L, Est GFR ( Amer) > 60, Est GFR (Non -Af Amer) > 60, Random Glucose 100, Calcium 9.3, Total Bilirubin 0.2, AST 28, ALT 22, Alkaline Phosphatase 71, Total Protein 7.1, Albumin 4.2, Globulin 2.9, Albumin/Globulin Ratio 1.5 10/13/17 20:20: WBC 8.9, RBC 4.18, Hgb 11.9 L, Hct 34.9 L, MCV 83.5, MCH 28.5, MCHC 34.1, RDW 12.7, Plt Count 256, MPV 11.1 H, Gran % 60.1, Lymph % (Auto) 28.8 , [place] % (Auto) 9.2 H, Eos % (Auto) 1.7, Baso % (Auto) 0.2, Gran # 5.33, Lymph # (Auto) 2.6, [place] # (Auto) 0.8 H, Eos # (Auto) 0.2, Baso # (Auto) 0.02 - RAD Interpretation Radiology Orders: 10/13/17 20:29 CHEST ONE VIEW [RAD] Stat - Scribe Statement The provider has reviewed the documentation as recorded by the Scribe Bettie Shirley Provider Scribe Attestation: All medical record entries made by the Scribe were at my direction and personally dictated by me. I have reviewed the chart and agree that the record accurately reflects my personal performance of the history, physical exam, medical decision making, and the department course for this patient. I have also personally directed, reviewed, and agree with the discharge instructions and disposition. Disposition/Present on Arrival - Present on Arrival Any Indicators Present on Arrival: No History of DVT/PE: No History of Uncontrolled Diabetes: No Urinary Catheter: No History of Decub. Ulcer: No History Surgical Site Infection Following: None - Disposition Have Diagnosis and Disposition been Completed?: Yes Diagnosis: Schizophrenia Disposition: HOSPITALIZED Disposition Time: 09:05 Patient Plan: Admission Condition: GOOD Forms: POPRAGEOUS (Maldivian)
[2017-10-14 08:08] VITALS: O2SAT 99
--- NOTE | 2017-10-14 09:22 | CARD ---
APPROVED REPORT EKG Measurement Heart [id number] <Conclusion> Normal sinus rhythm NSSTW changes, new
--- NOTE | 2017-10-14 10:00 | RAD ---
PROCEDURE: CHEST RADIOGRAPH, 1 VIEW HISTORY: r/o infiltrate COMPARISON: 09/27/2017. FINDINGS: LUNGS: Clear. PLEURA: No pneumothorax or pleural fluid seen. CARDIOVASCULAR: Normal. OSSEOUS STRUCTURES: No significant abnormalities. Stable thoracolumbar scoliosis. VISUALIZED UPPER ABDOMEN: Normal. OTHER FINDINGS: None. IMPRESSION: No active disease. No acute/significant interval changes.
--- NOTE | 2017-10-14 10:56 | PCM.BM ---
<NunuPedro barahona - Last Filed: 10/14/17 10:52> Treatment Plan Problems - Problems identified on initial assessmt ALTERATION IN EMOTIONAL STATUS Date Initiated: 10/14/17 Time Initiated: 10:53 Assessment reference: HP, NA, Other Status: Active DELUSONAL BEHAVIOR Date Initiated: 10/14/17 Time Initiated: 10:54 Assessment reference: HP, NA, Other Status: Active THOUGHT PROCESS ALTERATION Date Initiated: 10/14/17 Time Initiated: 10:55 Assessment reference: HP, NA, Other Treatment assets and liabiliti Patient Assests: educated, self-reliant, ADL independent, physically healthy, negotiates basic needs, strong mini Patient Liabilities: dietary restrictions - Milieu Protocol Maintain good personal hygiene: daily Encourage regular showers, daily Remind patient to perform daily oral care, daily Assist patient to perform ADL's Maintain personal safety: daily Educate patient to report safety concerns to staff, daily Monitor environment for contraband/sharps Medication safety: Monitor for expected outcome, potential side effects: daily, Assess barriers to learning: daily, Assess readiness for medication education: daily Discharge/Continuing Care - Education Needs Education Needs: Patient Medication, Patient Diagnosis/Disease Process, Patient Community resources, Patient Activities of Daily Living, Patient Nutrition, Patient Health Practices/Safety, Patient Personal Hygiene/Grooming - Discharge Discharge Criteria: Free of Suicidal thoughts, Free of agitation, Normal sleep pattern, Ability to care for self <Marvin Miller - Last Filed: 10/15/17 09:34> - Diagnosis (1) Schizophrenia Status: Chronic Interventions: group, milieu and supportive tx c/w prolixin 5 mg AM and 10 mg HS c/w invega 6 mg AM and 9 mg HS c/w ativan 0.5 mg bid prn Haldol 3 mg po/IM with Ativan 2 mg po/IM prn for agitation Consider mood stabilizer and/or clozaril 10/15/17 09:34
[2017-10-14] MEDS: PALIPERIDONE 9 MG PO SCH (21:52)
[2017-10-14] MEDS: PALIPERIDONE 6 MG PO SCH (21:52)
[2017-10-14] MEDS ORDERED: Home Med 1 UNIT PO SCH ×3 (22:00)
[2017-10-14] MEDS ORDERED: INVEGA 9 MG PO SCH (22:00)
[2017-10-15 06:55] VITALS: RESP 20
[2017-10-15 08:08] LABS: ALB/GLOB RATIO 1.3 (1.1-1.8); ALBUMIN 3.4 g/dL (3.0-4.8)
[2017-10-15] MEDS: PALIPERIDONE 6 MG PO SCH ×2 (08:10→23:29)
[2017-10-15] MEDS: PALIPERIDONE 9 MG PO SCH ×2 (08:10→23:29)
[2017-10-15 08:29] LABS: FREE T4 1.08 ng/dL (0.78-2.19)
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
[2017-10-16] MEDS: PALIPERIDONE 9 MG PO SCH (08:59)
[2017-10-16] MEDS: PALIPERIDONE 6 MG PO SCH (08:59)
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
[2017-10-17] MEDS: PALIPERIDONE 6 MG PO SCH (08:22)
[2017-10-17] MEDS: PALIPERIDONE 9 MG PO SCH (08:22)
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
[2017-10-17 13:48] LABS: PH,URINE 6.5 (4.7-8.0); URINE APPEARANCE CLEAR (CLEAR); URINE BILIRUBIN NEGATIVE (NEGATIVE); URINE BLOOD NEGATIVE (NEGATIVE); URINE COLOR YELLOW (YELLOW); URINE GLUCOSE (UA) NEGATIVE (NEGATIVE); URINE LEUKOCYTE ESTERASE NEGATIVE Leu/uL (NEGATIVE); URINE PROTEIN NEGATIVE mg/dL (<30 mg/dL); URINE UROBILINOGEN 0.2 E.U./dL (<1 E.U./dL)
[2017-10-18] MEDS: PALIPERIDONE 6 MG PO SCH (08:32)
[2017-10-18] MEDS: PALIPERIDONE 9 MG PO SCH (09:10)
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
--- NOTE | 2017-10-19 07:37 | CON ---
DATE: 10/18/2017 REASON FOR CONSULTATION: Hypotension. HISTORY OF PRESENT ILLNESS: Patient is 27 years old, seen and examined, lying in bed, seems to be comfortable. I introduced myself that I am here to take care of her medical issue because she was found to have high and low blood pressures. Patient states she has had low blood pressure all her life, does not bother her. She states she is here basically because of her paranoia because she was having fearful thoughts of being raped or being killed. She has been taking her medication, but in spite of taking medicine, it was getting overwhelmed, so she came to emergency room for further evaluation. Patient denies any nausea or vomiting. No diarrhea. No weight loss. No hemoptysis. No hematemesis. No chest pain. PAST MEDICAL HISTORY: Significant for paranoid schizophrenia. She has multiple admissions for that. SOCIAL HISTORY: She lives with her parents. She has five sibling including her. They are all seem to be okay. 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 Denies smoking or drinking, but will drink socially. ALLERGIES: SHE IS NOT ALLERGIC TO ANY MEDICATIONS. MEDICATIONS: At home, she is on fluphenazine 5 mg daily and 10 mg at bedtime, she is on Invega 9 mg at bedtime and lorazepam 0.5 twice a day. REVIEW OF SYSTEMS: Significant for being anxious and has fear in her eyes. PHYSICAL EXAMINATION: GENERAL: She is awake, alert, oriented, able to communicate, answering appropriately. VITAL SIGNS: She is afebrile, pulse 61, respirations 20, blood pressure 83/64. LUNGS: Bilateral good airflow. No rhonchi or crackle. HEART: S1, S2 audible. ABDOMEN: Soft, nontender. No rebound. No guarding. NEUROLOGICAL: Patient is awake, alert, oriented, communicative. LABORATORY EXAM: WBC is 8.9, hemoglobin 11.9, hematocrit 34.9, platelet of 256. Chemistry: Sodium 139, potassium 3.6, chloride 101, CO2 of 25, BUN 8, creatinine 0.6. Blood sugar of 100. Urinalysis shows trace leukocyte; however, wbc is 1 to 3 that is still within range and her nitrites are negative. Urine tox is negative. RPR is negative. ASSESSMENT AND PLAN: Hypotension, could be secondary to psychiatric medication. I will order for orthostatics, but patient denies having any feeling of dizziness, passing out; so I will monitor her next 24-hour blood pressure readings. If her blood pressure drops below 80, we can start her on midodrine and I will order for morning cortisol level also. We will follow with you. Maeve Chance MD
[2017-10-19] MEDS: PALIPERIDONE 9 MG PO SCH (08:30)
[2017-10-19] MEDS: PALIPERIDONE 6 MG PO SCH (08:31)
--- NOTE | 2017-10-19 13:10 | PN ---
DATE: 10/19/2017 SUBJECTIVE: The patient is 27 years old, seen and examined, lying in the bed, seems to be comfortable. Awake, alert, oriented, does not complain of any weakness or dizziness. OBJECTIVE: VITAL SIGNS: The patient is afebrile, pulse 60, respirations 20, and blood pressure 85/51. LUNGS: Bilateral good airflow. No rhonchi or crackle. HEART: S1, S2 audible. ABDOMEN: Soft, nontender. No rebound, no guarding. NEUROLOGICAL: The patient is awake, alert, oriented, communicative, and ambulatory. LABORATORY EXAM: Her TSH is 2.35, T4 is 1.08. Repeat urinalysis is negative. 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 The patient states she has no symptoms. I will encourage her to have one bottle of Gatorade every day and fluid with electrolytes to raise her blood pressure. I do not think she need any intervention. We will follow up this patient in a.m. Thanks for consult. Maeve Chance MD
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
[2017-10-20] MEDS: PALIPERIDONE 9 MG PO SCH (08:58)
[2017-10-20] MEDS: PALIPERIDONE 6 MG PO SCH (08:58)
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
--- NOTE | 2017-10-20 15:29 | PN ---
DATE: 10/20/2017 SUBJECTIVE: The patient is 27 years old, seen and examined, lying in bed, looks anxious. I discussed with her about her low blood pressure. She states she has always had low blood pressure and never had any symptoms. She is not willing to start any medication. She states I have to talk to her mother before she takes any medications. PHYSICAL EXAMINATION: GENERAL: She is awake, alert, oriented, communicative. VITAL SIGNS: She is afebrile, pulse 47, respirations 20, blood pressure 85/42. LUNGS: Bilateral good airflow. No rhonchi or crackle. HEART: S1 and S2 audible. ABDOMEN: Soft, nontender. No rebound. No guarding. NEUROLOGICAL: She is awake, alert, oriented, communicative. LABORATORY EXAMINATION: Her random cortisol level is 11.6, that is within normal limits. Thyroid profile is okay. ASSESSMENT: 1. History of paranoid schizophrenia. 2. Asymptomatic hypotension. PLAN: Advised the patient to have salty beverages including Gatorade 1 bottle everyday to maintain her fluid status, and I offered her to start her on midodrine, but she does not want to try any medications. She states she has no symptoms and she does not want to take any medicines. I with her mother, if they approve, we might start and make further decision after talking to mom. Maeve Chance MD
[2017-10-21] MEDS: PALIPERIDONE 6 MG PO SCH (09:05)
[2017-10-21] MEDS: PALIPERIDONE 9 MG PO SCH (09:05)
--- NOTE | 2017-10-21 10:33 | PCM.PYCHPN ---
Psychiatric Progress Note - Psychiatric Progress Note Patient seen today, length of contact: 30min Patient Chief Complaint: "I am being followed at home" Problems Identified/Issues Discussed: Please refer to Dr. Ahn's psychiatric evaluation on 09/28/17 for full assessment. This patient was recently hospitalized on our psychiatric unit from 09/27/17-10/12/17. She presented to our ER on 10/13/17 because of paranoia and delusions. Patient reported that she felt someone was stalking her. She had a very similar presentation during her most recent admission. I reviewed recent notes and met with patient at bedside this morning. She is alert and oriented x 3. She still appears a little unkempt and oddly-related but generally calm and superficially cooperative. She has been friendly on the unit though still has periods of illogic. When asked about hallucinations, she replies "no, not really". She admits to "a little paranoia" however denies persecutory feelings at this time. She does not appear overly paranoid or bizarre during my interview however her understanding about her admission is very superficial. Insight continues to be impaired. Patient continues to indicate that she feels safe on the unit. Patient denies any side effects from her medications. Denies any new discomfort or pain. She doesn't appear to be in distress. Thus far there have been no behavioral issues this weekend. Diagnostic Results: Schizophrenia Medication Change: No ( ) Medical Record Reviewed: Yes Mental Status Examination - Cognitive Function Orientation: Person, Place Memory: Impaired Attention: Poor (some improvement) Concentration: Poor (some improvement) Association: Loose Fund of Knowledge: WNL - Mood Mood: Anxious (I feel better) - Affect Affect: Constricted (but was able to smile today) - Speech Speech: Appropriate (overpdocutive) - Formal Thought Process Formal Thought Process: Delusions, Paranoia ("last admission staff gave me wrong medicaitons" no evidence for that, pt was given right meds all the time), Loosening of associations - Suicidal Ideation Suicidal Ideation: No - Homicidal Ideation Homicidal Ideation: No Goal/Treatment Plan - Goal/Treatment Plan Need for Continued Stay: Remain at risks for inpatient hospitalization, Severe depression anxiety, Discharge may exacerbated symptoms, Failed transitioning, Severe functional impairment Progress Toward Problem(s) and Goals/Treatment Plan: * group, milieu and supportive tx * No new weekend lab results thus far * Vitals reviewed and noted below: 10/21/17 06:48 Temperature 98.4 F Pulse Rate 56 L Respiratory 20 Rate Blood Pressure 88/54 L PREVIOUS FLOOR LABS NOTED BELOW Laboratory Results - last 24 hr 10/15/17 10/15/17 07:00 07:00 Fasting Glucose 98 Total Bilirubin 0.4 Direct Bilirubin 0.0 AST 18 ALT 31 Alkaline Phosphatase 49 Total Protein 6.1 Albumin 3.4 Globulin 2.7 Albumin/Globulin Ratio 1.3 Free T4 1.08 TSH 3rd Generation 2.35 Estimated Date of D/C: 10/23/17
[2017-10-22] MEDS: PALIPERIDONE 9 MG PO SCH (08:31)
[2017-10-22] MEDS: PALIPERIDONE 6 MG PO SCH (08:31)
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
[2017-10-23 07:38] VITALS: BP 96/55; PULSE 55; TEMP 98
[2017-10-23] MEDS: PALIPERIDONE 9 MG PO SCH (08:31)
[2017-10-23] MEDS: PALIPERIDONE 6 MG PO SCH (08:34)
== END 2017-10-23 12:26 | disposition home or self-care (01) | DRG 885 ==
LOC: ED 20:07 → PSYC 10-14 08:55 → ED 10-14 08:55 → PSYC 10-14 10:32
PROVIDERS: ADMIT Psychiatry & Neurology Psychiatry; ATTEND Psychiatry & Neurology Psychiatry
PROC: GZ3ZZZZ Medication Management (ICD-10-PCS; principal; 2017-10-14)
DX: F20.0 Paranoid schizophrenia (principal); I95.9 Hypotension, unspecified; H53.8 Other visual disturbances

== ENCOUNTER 2017-10-25 11:52 | Emergency (ER) | payer BC, MEDICARE, MEDICAID ==
[2017-10-25 11:52] VITALS: BMI 28.1
--- NOTE | 2017-10-25 12:19 | ED PDOC ---
Arrival/HPI - General Historian: Patient - History of Present Illness Time/Duration: Other (see hpi) Context: Home <Edi Porter - Last Filed: 10/25/17 20:02> <Tommy Mansfield - Last Filed: 10/26/17 06:15> - General Time Seen by Provider: 10/25/17 12:19 - History of Present Illness Narrative History of Present Illness (Text): 10/25/17 12:19 This 27 yo female with pmh schizophrenia, is brought to this ED by BLS for psychiatric evaluation. Patient is currently with psychotic behavior. She is telling me she needs an . She has tangential speech, word salad. ( Edi Porter) Past Medical History - Provider Review Nursing Documentation Reviewed: Yes - Infectious Disease Hx of Infectious Diseases: None - Cardiac Hx Cardiac Disorders: No Hx Hypertension: No - Pulmonary Hx Respiratory Disorders: No Hx Tuberculosis: No - Neurological HX Cerebrovascular Accident: No Hx Seizures: No - HEENT Hx HEENT Disorder: No - Renal Hx Renal Disorder: No - Endocrine/Metabolic Hx Endocrine Disorders: No - Hematological/Oncological Hx Cancer: No - Integumentary Hx Dermatological Disorder: No - Musculoskeletal/Rheumatological Hx Musculoskeletal Disorders: No - Gastrointestinal Hx Gastrointestinal Disorders: No - Genitourinary/Gynecological Hx Sexually Transmitted Diseases: No - Psychiatric Hx Schizophrenia: Yes Hx Substance Use: No - Anesthesia Hx Anesthesia: No <PorterJordana cheneyim P - Last Filed: 10/25/17 20:02> Family/Social History - Physician Review Nursing Documentation Reviewed: Yes Family/Social History: Other (noncontributory) Smoking Status: Never Smoked Hx Alcohol Use: No Hx Substance Use: No <Jordana Porterim P - Last Filed: 10/25/17 20:02> Allergies/Home Meds <Jordana Porterim P - Last Filed: 10/25/17 20:02> <Tommy Mansfield - Last Filed: 10/26/17 06:15> Allergies/Adverse Reactions: Allergies No Known Allergies Allergy (Verified 10/14/17 23:16) Review of Systems - Review of Systems Constitutional: Normal. absent: Fatigue, Weight Change, Fevers, Night Sweats Eyes: Normal ENT: Normal Respiratory: Normal Cardiovascular: Normal Gastrointestinal: Normal Genitourinary Female: Normal Musculoskeletal: Normal Skin: Normal Neurological: Normal Endocrine: Normal Hemo/Lymphatic: Normal Psychiatric: Other (see HPI) <Porter,Nahim P - Last Filed: 10/25/17 20:02> Physical Exam Temperature: Afebrile Blood Pressure: Normal Pulse: Regular Respiratory Rate: Normal Appearance: Positive for: Well-Appearing, Non-Toxic, Comfortable Pain Distress: None - Systems Exam Head: Present: Atraumatic, Normocephalic Pupils: Present: PERRL Extroacular Muscles: Present: EOMI Conjunctiva: Present: Normal Mouth: Present: Moist Mucous Membranes Neck: Present: Normal Range of Motion Respiratory/Chest: Present: Clear to Auscultation, Good Air Exchange. No: Respiratory Distress, Accessory Muscle Use Cardiovascular: Present: Regular Rate and Rhythm, Normal S1, S2. No: Murmurs Abdomen: No: Tenderness, Distention, Peritoneal Signs Back: Present: Normal Inspection Upper Extremity: Present: Normal Inspection. No: Cyanosis, Edema Lower Extremity: Present: Normal Inspection. No: Edema Neurological: Present: GCS=15, CN II-XII Intact, Speech Normal Skin: Present: Warm, Dry, Normal Color. No: Rashes Psychiatric: Present: Alert, Delusional <Porter,Nahim P - Last Filed: 10/25/17 20:02> Vital Signs Temp Pulse Resp BP Pulse Ox 10/26/17 00:20 97.7 F 67 18 108/62 100 10/25/17 18:42 98.0 F 90 17 116/58 L 98 10/25/17 14:31 98.8 F 89 18 113/71 99 Medical Decision Making - Lab Interpretations I have reviewed the lab results: Yes Interpretation: No sign. chg./baseline <Porter,Nahim P - Last Filed: 10/25/17 20:02> - Transfer of Care Patient signed out to Dr:: [facility] <Tommy Mansfield - Last Filed: 10/26/17 06:15> ED Course and Treatment: 10/25/17 16:58 MANNIE Stewart screener recommended [facility] [place]. Patient is medically clear for psychiatric evaluation and transfer. 10/25/17 16:59 pending urine test 10/25/17 20:03 Labs are normal except for mild leukocytosis Patient denies any somatic complains. (Porter,Nahim P) 10/26/17 05:13 Pt seen and re-evaluated by MANNIE Wilson, pt accepted for involuntary admission at [facility]. Awaiting [facility] psych bed placement. (Tommy Mansfield) - Lab Interpretations Lab Results: 10/25/17 14:20 10/25/17 14:20 Lab Results 10/25/17 18:15: Urine Opiates Screen Negative, Urine Methadone Screen Negative, Ur Barbiturates Screen Negative, Ur Phencyclidine Scrn Negative, Ur Amphetamines Screen Negative, U Benzodiazepines Scrn Negative, U Oth Cocaine Metabols Negative, U Cannabinoids Screen Negative 10/25/17 18:15: Urine Color Light yellow, Urine Appearance Clear, Urine pH 7.0, Ur Specific [place] <= 1.005, Urine Protein Negative, Urine Glucose (UA) Negative, Urine Ketones Negative, Urine Blood Negative, Urine Nitrate Negative, Urine Bilirubin Negative, Urine Urobilinogen 0.2, Ur Leukocyte Esterase Negative 10/25/17 14:20: Alcohol, Quantitative < 10 10/25/17 14:20: Salicylates < 1 L, Acetaminophen < 10.0 L 10/25/17 14:20: Sodium 137, Potassium 4.0, Chloride 100, Carbon Dioxide 28, Anion Gap 13, BUN 8, Creatinine 0.6 L, Est GFR ( Amer) > 60, Est GFR (Non -Af Amer) > 60, Random Glucose 88, Calcium 9.5, Magnesium 1.9, Total Bilirubin 0.3, AST 21, ALT 28, Alkaline Phosphatase 66, Total Protein 6.7, Albumin 4.0, Globulin 2.7, Albumin/Globulin Ratio 1.5 10/25/17 14:20: WBC 12.8 H D, RBC 4.05, Hgb 11.9 L, Hct 33.8 L, MCV 83.5, MCH 29.4, MCHC 35.2, RDW 12.5, Plt Count 258, MPV 10.4, Gran % 71.9 H, Lymph % (Auto ) 19.7 L, [place] % (Auto) 7.9 H, Eos % (Auto) 0.3 L, Baso % (Auto) 0.2, Gran # 9.23 H, Lymph # (Auto) 2.5, [place] # (Auto) 1.0 H, Eos # (Auto) 0.0, Baso # (Auto ) 0.02 - Medication Orders Current Medication Orders: Discontinued Medications Chlorpromazine (Thorazine) 50 mg IM STAT STA PRN Reason: Protocol Stop: 10/25/17 14:29 Last Admin: 10/25/17 14:37 Dose: 50 mg IM Administration Charges Document 10/25/17 14:37 [email or web address] (Rec: 10/25/17 14:38 [email or web address] [facility] [id number]) Injection Site MAR Injection Site Right Deltoid Charges for Administration # of IM Administrations 1 Lorazepam (Ativan) 2 mg IM STAT STA PRN Reason: Protocol Stop: 10/25/17 14:30 Last Admin: 10/25/17 14:45 Dose: 2 mg IM Administration Charges Document 10/25/17 14:45 [email or web address] (Rec: 10/25/17 14:45 [email or web address] [facility] [id number]) Injection Site MAR Injection Site Left Deltoid Charges for Administration # of IM Administrations 1 - PA / BRICK SORTER / Resident Statement MD/DO has reviewed & agrees with the documentation as recorded. <Tommy Mansfield - Last Filed: 10/26/17 06:15> Disposition/Present on Arrival - Present on Arrival Any Indicators Present on Arrival: No History of DVT/PE: No History of Uncontrolled Diabetes: No Urinary Catheter: No History Surgical Site Infection Following: None - Disposition Have Diagnosis and Disposition been Completed?: Yes <Edi Porter - Last Filed: 10/25/17 20:02> - Present on Arrival Any Indicators Present on Arrival: No - Disposition Have Diagnosis and Disposition been Completed?: Yes Disposition Time: 07:00 <Tommy Mansfield - Last Filed: 10/26/17 06:15> - Disposition Diagnosis: Schizophrenia Disposition: Transfer [facility] Patient Problems: Current Active Problems Problem Status Onset Schizophrenia Chronic Condition: FAIR
[2017-10-25 14:32] LABS: BASO # 0.02 K/mm3 (0.0-2.0); BASO % 0.2 % (0.0-3.0); EOS % 0.3 % (1.5-5.0); GRAN # 9.23 (1.4-6.5); GRAN % 71.9 % (50.0-68.0); HEMOGLOBIN 11.9 g/dL (12.0-16.0); LYMPH # 2.5 (1.2-3.4); LYMPH % 19.7 % (22.0-35.0); MEAN CELL VOLUME 83.5 fl (80.0-105.0); MEAN CORPUSCULAR HEMOGLOBIN 29.4 pg (25.0-35.0); MEAN CORPUSCULAR HGB CONC 35.2 g/dl (31.0-37.0); MEAN PLATELET VOLUME 10.4 fl (7.0-11.0); MONO % 7.9 % (1.0-6.0); RBC 4.05 10^6/uL (3.5-6.1); RED CELL DISTRIBUTION WIDTH 12.5 % (11.5-14.5); WHITE BLOOD COUNT 12.8 10^3/ul (4.5-11.0)
[2017-10-25 14:58] LABS: BLOOD UREA NITROGEN 8 mg/dL (7-21); CALCIUM 9.5 mg/dL (8.4-10.5); GFR AFRICAN-AMERICAN > 60; GFR NON-AFRICAN AMERICAN > 60
[2017-10-25 14:59] LABS: ALB/GLOB RATIO 1.5 (1.1-1.8); ALT/SGPT 28 U/L (7-56); AST/SGOT 21 U/L (14-36)
[2017-10-25 15:48] LABS: ACETAMINOPHEN < 10.0 ug/ml (10.0-20.0); SALICYLATE < 1 mg/dL (2.0-20.0)
[2017-10-25 19:06] LABS: URINE BILIRUBIN NEGATIVE (NEGATIVE); URINE BLOOD NEGATIVE (NEGATIVE); URINE GLUCOSE (UA) NEGATIVE (NEGATIVE); URINE LEUKOCYTE ESTERASE NEGATIVE Leu/uL (NEGATIVE); URINE PROTEIN NEGATIVE mg/dL (<30 mg/dL); URINE UROBILINOGEN 0.2 E.U./dL (<1 E.U./dL)
[2017-10-25 19:07] LABS: URINE APPEARANCE CLEAR (CLEAR); URINE COLOR LIGHT YELLOW (YELLOW)
[2017-10-25 19:09] LABS: BARBITURATES, UR NEGATIVE (NEGATIVE); BENZODIAZEPINES, UR NEGATIVE (NEGATIVE); OPIATES, UR NEGATIVE (NEGATIVE); PHENCYCLIDINE, UR NEGATIVE (NEGATIVE)
--- NOTE | 2017-10-26 09:40 | CARD ---
APPROVED REPORT Date of service: 10/25/2017 EKG Measurement Heart [id number] [place] [id number] <Conclusion> Normal sinus rhythm with sinus arrhythmia Cannot rule out Anterior infarct, age undetermined Abnormal ECG
[2017-10-26 18:21] VITALS: RESP 18
--- NOTE | 2017-10-26 21:14 | CON ---
DATE: 10/26/2017 HISTORY OF PRESENT ILLNESS: The patient is a 27-year-old female with history of schizophrenia, treatment resistant. The patient had two [id number] psychiatric admissions here to [facility], first was 09/27/2017 to 10/12/2017. After that, the patient was readmitted on 10/14/2017 to 10/23/2017. The patient was brought in to the hospital on 10/25/2017 for disorganized and psychotic behavior. The patient presented to be bizarre, disorganized, tangential, and circumstantial, needed to be medicated yesterday. The patient needed to be medicated with Thorazine and Ativan. The patient is delusional, said that she had an , which is not true. The patient also was saying that she is hearing devil voices and she has thoughts of killing herself and killing others. The patient was screened by [facility]. The patient was accepted at present moment. The patient is waiting for bed to be available for involuntary commitment. The patient was seen today. The patient presented to have acceptable personal hygiene, fair ADLs. The patient presented to be disorganized, but she remembers this investment underwriter, seems to be well related to her. The patient has intermittent eye contact. The patient appears to be restless. Going back and forth from her room to the phone and making a lot of phone calls. The patient reports that her family knows that she is in the hospital. The patient has supportive mother and father, but at the same time, the patient was paranoid in her grandmother's house where it is her permanent residence. As per collateral information from the social media coordinator in Psych Inpatient Unit, she received the phone call from the nurse from , who wanted to have initial evaluation for home services yesterday. The patient became very paranoid. The patient called police for the nurse, who came over to evaluate the patient. The patient was brought in for disorganized and psychotic behavior yesterday. As per the patient's report, the patient was compliant with the medications. The patient reported that she was rejected at [facility], Dr. Alvarado's office, and she never went to [facility] as it was suggested by Dr. Alvarado. Vital signs were reviewed. Temperature 97.8, pulse is 60, blood pressure 98/58, respirations 20, oxygen saturations 97. Medications were reviewed. This investment underwriter will resume all of her medications. Cogentin 0.5 mg three times a day. Thorazine will be started as needed for agitation, Prolixin 10 mg three times a day, Ativan 0.5 mg three times a day as needed for anxiety. Sonata 5 mg at the nighttime as needed for insomnia. The patient was also on Invega. We will try to find out if the patient will be able to continue that medication because it is non-formulary in the hospital. Labs were reviewed. WBC 12.8, hemoglobin and hematocrit 11.9 and 33.8. Chemistry reviewed. Urinalysis reviewed. The patient is negative for . Urine drug screen is negative. MENTAL STATUS EXAMINATION: The patient appears to be alert, oriented, seems to be restless. Fair eye contact. Mood described, "I'm good, thank God." Thought process, circumstantial, tangential, and disorganized. Thought content, the patient reported that she does not feel hopeless or helpless. She denied that she has thoughts of harming herself or others, but at the same time, the patient verbalized that she had command-type hallucinations yesterday and has thoughts of harming herself and others. The patient needed to be medicated there, then. Insight and judgment seems to be limited. Impulses are unpredictable. IMPRESSION: Treatment-resistant schizophrenia. PLAN: The patient was screened by [facility], was accepted at present moment. The patient is waiting for bed to be available. Medications were resumed. P.r.n. medications started. The patient will be transferred to [facility] and required to have one-to-one observation in the Emergency Room. Thank you very much for letting me participate in the care of your patient. Monica Ahn MD
--- NOTE | 2017-10-26 23:49 | ED PDOC ---
Physical Exam Vital Signs Temp Pulse Resp BP Pulse Ox 10/27/17 04:00 74 18 117/78 100 10/26/17 22:00 80 18 115/72 100 10/26/17 18:40 98.3 F 79 18 112/66 98 10/26/17 16:15 66 18 111/70 99 10/26/17 14:00 71 16 106/73 99 10/26/17 12:00 80 17 102/62 99 10/26/17 10:00 98.7 F 86 16 108/59 L 98 10/26/17 07:16 97.8 F 60 20 98/58 L 97 10/26/17 04:45 70 18 98 10/26/17 00:20 97.7 F 67 18 108/62 100 10/25/17 18:42 98.0 F 90 17 116/58 L 98 10/25/17 14:31 98.8 F 89 18 113/71 99 Medical Decision Making ED Course and Treatment: 10/26/17 19:00 Case endorsed to me by Dr. Garcia, pending [facility] transfer. Pt awake, in no acute distress. 10/27/17 05:[address] Roman, pending transfer to [facility]. - Lab Interpretations Lab Results: 10/25/17 14:20 10/25/17 14:20 Lab Results 10/25/17 18:15: Urine Opiates Screen Negative, Urine Methadone Screen Negative, Ur Barbiturates Screen Negative, Ur Phencyclidine Scrn Negative, Ur Amphetamines Screen Negative, U Benzodiazepines Scrn Negative, U Oth Cocaine Metabols Negative, U Cannabinoids Screen Negative 10/25/17 18:15: Urine Color Light yellow, Urine Appearance Clear, Urine pH 7.0, Ur Specific [place] <= 1.005, Urine Protein Negative, Urine Glucose (UA) Negative, Urine Ketones Negative, Urine Blood Negative, Urine Nitrate Negative, Urine Bilirubin Negative, Urine Urobilinogen 0.2, Ur Leukocyte Esterase Negative 10/25/17 14:20: Alcohol, Quantitative < 10 10/25/17 14:20: Salicylates < 1 L, Acetaminophen < 10.0 L 10/25/17 14:20: Sodium 137, Potassium 4.0, Chloride 100, Carbon Dioxide 28, Anion Gap 13, BUN 8, Creatinine 0.6 L, Est GFR ( Amer) > 60, Est GFR (Non -Af Amer) > 60, Random Glucose 88, Calcium 9.5, Magnesium 1.9, Total Bilirubin 0.3, AST 21, ALT 28, Alkaline Phosphatase 66, Total Protein 6.7, Albumin 4.0, Globulin 2.7, Albumin/Globulin Ratio 1.5 10/25/17 14:20: WBC 12.8 H D, RBC 4.05, Hgb 11.9 L, Hct 33.8 L, MCV 83.5, MCH 29.4, MCHC 35.2, RDW 12.5, Plt Count 258, MPV 10.4, Gran % 71.9 H, Lymph % (Auto ) 19.7 L, [place] % (Auto) 7.9 H, Eos % (Auto) 0.3 L, Baso % (Auto) 0.2, Gran # 9.23 H, Lymph # (Auto) 2.5, [place] # (Auto) 1.0 H, Eos # (Auto) 0.0, Baso # (Auto ) 0.02 - Medication Orders Current Medication Orders: Discontinued Medications Chlorpromazine (Thorazine) 50 mg IM STAT STA PRN Reason: Protocol Stop: 10/25/17 14:29 Last Admin: 10/25/17 14:37 Dose: 50 mg IM Administration Charges Document 10/25/17 14:37 [email or web address] (Rec: 10/25/17 14:38 [email or web address] [facility] [place] [id number][place] Injection Site MAR Injection Site Right Deltoid Charges for Administration # of IM Administrations 1 Lorazepam (Ativan) 2 mg IM STAT STA PRN Reason: Protocol Stop: 10/25/17 14:30 Last Admin: 10/25/17 14:45 Dose: 2 mg IM Administration Charges Document 10/25/17 14:45 [email or web address] (Rec: 10/25/17 14:45 [email or web address] [facility] [id number]) Injection Site MAR Injection Site Left Deltoid Charges for Administration # of IM Administrations 1 Disposition/Present on Arrival - Present on Arrival Any Indicators Present on Arrival: No History of DVT/PE: No History of Uncontrolled Diabetes: No Urinary Catheter: No History of Decub. Ulcer: No History Surgical Site Infection Following: None - Disposition Have Diagnosis and Disposition been Completed?: No Diagnosis: Schizophrenia Disposition: Transfer [facility] Disposition Time: 07:00 Patient Problems: Current Active Problems Problem Status Onset Schizophrenia Chronic Condition: STABLE Forms: [employer] (Hungarian)
[2017-10-27 03:29] VITALS: O2SAT 100
--- NOTE | 2017-10-27 07:11 | ED PDOC ---
Physical Exam Vital Signs Temp Pulse Resp BP Pulse Ox 10/27/17 06:30 98.5 F 75 18 118/82 100 10/27/17 04:00 74 18 117/78 100 10/26/17 22:00 80 18 115/72 100 10/26/17 18:40 98.3 F 79 18 112/66 98 10/26/17 16:15 66 18 111/70 99 10/26/17 14:00 71 16 106/73 99 10/26/17 12:00 80 17 102/62 99 10/26/17 10:00 98.7 F 86 16 108/59 L 98 10/26/17 07:16 97.8 F 60 20 98/58 L 97 10/26/17 04:45 70 18 98 10/26/17 00:20 97.7 F 67 18 108/62 100 10/25/17 18:42 98.0 F 90 17 116/58 L 98 10/25/17 14:31 98.8 F 89 18 113/71 99 Medical Decision Making ED Course and Treatment: 10/27/17 07:00 Case signed out to me by Dr. Bermudez. Patient is a 27 year old female whose PMH includes schizophernia, who presented to the emergency department via EMS for psych evaluation. Patient is currently asymptomatic and in no acute distress. Denies any SI or HI and [place] be transferred [place] [facility] [place]. - Lab Interpretations Lab Results: 10/25/17 14:20 10/25/17 14:20 Lab Results 10/25/17 18:15: Urine Opiates Screen Negative, Urine Methadone Screen Negative, Ur Barbiturates Screen Negative, Ur Phencyclidine Scrn Negative, Ur Amphetamines Screen Negative, U Benzodiazepines Scrn Negative, U Oth Cocaine Metabols Negative, U Cannabinoids Screen Negative 10/25/17 18:15: Urine Color Light yellow, Urine Appearance Clear, Urine pH 7.0, Ur Specific [place] <= 1.005, Urine Protein Negative, Urine Glucose (UA) Negative, Urine Ketones Negative, Urine Blood Negative, Urine Nitrate Negative, Urine Bilirubin Negative, Urine Urobilinogen 0.2, Ur Leukocyte Esterase Negative 10/25/17 14:20: Alcohol, Quantitative < 10 10/25/17 14:20: Salicylates < 1 L, Acetaminophen < 10.0 L 10/25/17 14:20: Sodium 137, Potassium 4.0, Chloride 100, Carbon Dioxide 28, Anion Gap 13, BUN 8, Creatinine 0.6 L, Est GFR ( Amer) > 60, Est GFR (Non -Af Amer) > 60, Random Glucose 88, Calcium 9.5, Magnesium 1.9, Total Bilirubin 0.3, AST 21, ALT 28, Alkaline Phosphatase 66, Total Protein 6.7, Albumin 4.0, Globulin 2.7, Albumin/Globulin Ratio 1.5 10/25/17 14:20: WBC 12.8 H D, RBC 4.05, Hgb 11.9 L, Hct 33.8 L, MCV 83.5, MCH 29.4, MCHC 35.2, RDW 12.5, Plt Count 258, MPV 10.4, Gran % 71.9 H, Lymph % (Auto ) 19.7 L, [place] % (Auto) 7.9 H, Eos % (Auto) 0.3 L, Baso % (Auto) 0.2, Gran # 9.23 H, Lymph # (Auto) 2.5, [place] # (Auto) 1.0 H, Eos # (Auto) 0.0, Baso # (Auto ) 0.02 - Medication Orders Current Medication Orders: Discontinued Medications Chlorpromazine (Thorazine) 50 mg IM STAT STA PRN Reason: Protocol Stop: 10/25/17 14:29 Last Admin: 10/25/17 14:37 Dose: 50 mg IM Administration Charges Document 10/25/17 14:37 [email or web address] (Rec: 10/25/17 14:38 [email or web address] [facility] [id number]) Injection Site MAR Injection Site Right Deltoid Charges for Administration # of IM Administrations 1 Lorazepam (Ativan) 2 mg IM STAT STA PRN Reason: Protocol Stop: 10/25/17 14:30 Last Admin: 10/25/17 14:45 Dose: 2 mg IM Administration Charges Document 10/25/17 14:45 [email or web address] (Rec: 10/25/17 14:45 [email or web address] [facility] [id number]) Injection Site MAR Injection Site Left Deltoid Charges for Administration # of IM Administrations 1 - Scribe Statement The provider has reviewed the documentation as recorded by the Nandini Norwood Provider Scribe Attestation: All medical record entries made by the Scribe were at my direction and personally dictated by me. I have reviewed the chart and agree that the record accurately reflects my personal performance of the history, physical exam, medical decision making, and the department course for this patient. I have also personally directed, reviewed, and agree with the discharge instructions and disposition. Disposition/Present on Arrival - Present on Arrival Any Indicators Present on Arrival: No History of DVT/PE: No History of Uncontrolled Diabetes: No Urinary Catheter: No History of Decub. Ulcer: No History Surgical Site Infection Following: None - Disposition Have Diagnosis and Disposition been Completed?: Yes Diagnosis: Schizophrenia Disposition: Transfer [facility] [place]position Time: 07:02 Patient Plan: Transfer [place] [place] Condition: STABLE Forms: [employer] (Latvian)
[2017-10-27 07:47] VITALS: BP 103/62; PULSE 68; TEMP 97.8
== END 2017-10-27 07:53 | disposition short-term general hospital (02) ==
LOC: ED 11:52
DX: F20.9 Schizophrenia, unspecified (principal)
CPT/HCPCS: 80053; 81003; 83735; 85025; 90791; 93005; 96372; 99285; G0480; J2060; J3230